=== PATIENT | male | born 1965 | race Caucasian/White ===

== ENCOUNTER → 2016-07-15 | Outpatient (CLI) | payer OTHER ==
[2016-07-15 12:18] LABS: ABSOLUTE BASOPHILS # (AUTO) 0.1 10^3/uL (0.0-0.2); ABSOLUTE EOSINOPHILS # (AUTO) 0.1 10^3/uL (0.0-0.6); ABSOLUTE LYMPHOCYTES (AUTO) 0.9 10^3/uL (0.5-4.7); ABSOLUTE MONOCYTES (AUTO) 0.8 10^3/uL (0.1-1.4); ABSOLUTE NEUT (AUTO) 6.4 10^3/uL (1.7-8.2); BASOPHILS % (AUTO) 0.7 % (0-2); EOSINOPHILS % (AUTO) 0.8 % (0-6); HEMATOCRIT 45.7 % (37.9-51.0); HEMOGLOBIN 15.6 g/dL (13.5-17.0); HGB HCT DIFFERENCE 1.1; LYMPHOCYTES % (AUTO) 10.7 % (13-45); MEAN CORPUSCULAR HEMOGLOBIN 30.8 pg (27.0-33.4); MEAN CORPUSCULAR HGB CONC 34.1 g/dL (32.0-36.0); MEAN CORPUSCULAR VOLUME 90 fl (80-97); RED BLOOD COUNT 5.06 10^6/uL (4.35-5.55); RED CELL DISTRIBUTION WIDTH 13.3 % (11.5-14.0); SEGMENTED NEUTROPHILS % (AUTO) 77.8 % (42-78); WHITE BLOOD COUNT 8.3 10^3/uL (4.0-10.5)
[2016-07-15 12:52] LABS: ALANINE AMINOTRANSFERASE 42 U/L (21-72); ALBUMIN 4.6 g/dL (3.5-5.0); ALKALINE PHOSPHATASE 51 U/L (38-126); ANION GAP 14 (5-19); ASPARTATE AMINO TRANSFERASE 35 U/L (17-59); BILIRUBIN,DIRECT 0.4 mg/dL (0.0-0.4); BILIRUBIN,TOTAL 0.7 mg/dL (0.2-1.3); BLOOD UREA NITROGEN 7 mg/dL (7-20); CALCIUM 10.2 mg/dL (8.4-10.2); CARBON DIOXIDE 27 mmol/L (22-30); CHLORIDE 102 mmol/L (98-107); CHOLESTEROL 227.75 mg/dL (0-200); CREATININE RESULT 0.79 mg/dL (0.52-1.25); Direct HDL 85 mg/dL (>40); GLUCOSE 110 mg/dL (75-110); POTASSIUM 5.3 mmol/L (3.6-5.0); SODIUM 142.6 mmol/L (137-145); TOTAL PROTEIN 7.6 g/dL (6.3-8.2); TRIGLYCERIDES 82 mg/dL (<150); URIC ACID 5.7 mg/dL (3.5-8.5)
[2016-07-15 13:03] LABS: DIRECT LDL 125 mg/dL (<100)
== END ==
LOC: CCC 12:02
DX: Z00.00 Encounter for general adult medical examination without abnormal findings (principal); I10 Essential (primary) hypertension
CPT/HCPCS: 36415; 80053; 80061; 84443; 84550; 85025

== ENCOUNTER 2016-08-25 10:21 | Emergency (ER) | payer SELFPAY ==
[2016-08-25] MEDS ORDERED: DOCUSATE SODIUM 100 MG CAPSULE BTH_EAR ONE (11:27)
[2016-08-25] MEDS ORDERED: OXYCODONE-ACETAMINOPHEN 5-325 MG TABLET PO ONE (11:30)
--- NOTE | 2016-08-25 11:31 | ER Document Report ---
ED ENT - General Mode of Arrival: Ambulatory Information source: Patient TRAVEL OUTSIDE OF THE [place] IN LAST 30 DAYS: No - HPI Patient complains to provider of: Ear problem Onset: Other - 08/23/2016 Onset/Duration: Gradual, Worse Location of pain: Ears Associated symptoms: Ear pain, Ear drainage - General Chief Complaint: Ear Pain Stated Complaint: EAR PAIN Time Seen by Provider: 08/25/16 11:16 Notes: Patient is a 51-year-old male presenting to the emergency department concerned of bilateral ear pain onset Tuesday, August 23. Patient states that he noticed the pain in right ear first, but the pain is now worse in the left ear. Patient states the pain radiates into his neck and the top of his head causing a very bad headache. Patient also states that he has noticed a discharge coming out of the left ear. Patient reports wearing earplugs for work. (RENY CHRISTENSEN) - Related Data Allergies/Adverse Reactions: No Known Allergies Allergy (Verified 08/25/16 10:25) Past Medical History - General Information source: Patient, [facility] Records - Social History Smoking Status: Current Every Day Smoker Family History: Reviewed & Not Pertinent, Other - both his mother and father had SD's in thier 40's Patient has suicidal ideation: No Patient has homicidal ideation: No - Past Medical History Cardiac Medical History: Reports: Hx Hypercholesterolemia, Hx Hypertension - Immunizations Immunizations up to date: Yes Hx Diphtheria, Pertussis, Tetanus Vaccination: Yes Review of Systems - Review of Systems Constitutional: No symptoms reported EENT: See HPI, Ear pain - Bilateral, L>R Cardiovascular: No symptoms reported Respiratory: No symptoms reported Gastrointestinal: No symptoms reported Genitourinary: No symptoms reported Male Genitourinary: No symptoms reported Musculoskeletal: No symptoms reported Skin: No symptoms reported Hematologic/Lymphatic: No symptoms reported Neurological/Psychological: No symptoms reported Physical Exam - General General appearance: Appears well, Alert - HEENT Head: Normocephalic, Atraumatic Eyes: Normal Pupils: PERRL External canal: Other - Right ear canal filled with a white wax, no drainage, unable to see tympanic membrane. Left ear canal also containing a white wax, wet gooey drainage, very tender, visible TM with no abnormalities. - Respiratory Respiratory status: No respiratory distress Chest status: Nontender - Cardiovascular Rhythm: Regular - Abdominal Inspection: Normal Tenderness: Nontender - Back Back: Normal, Nontender - Extremities General upper extremity: Normal inspection, Nontender General lower extremity: Normal inspection, Nontender - Neurological Neuro grossly intact: Yes Cognition: Normal Orientation: AAOx4 Diaz Coma Scale Eye Opening: Spontaneous Herman Coma Scale Verbal: Oriented Diaz Coma Scale Motor: Obeys Commands Diaz Coma Scale Total: 15 Speech: Normal - Psychological Associated symptoms: Normal affect, Normal mood - Skin Skin Temperature: Warm Skin Moisture: Dry Skin Color: Normal Course - Re-evaluation Re-evalutation: 08/25/16 13:59 After using Colace drops to soften earwax, for large chunks that resemble rocks came out of the right ear. The canal was widely patent, there was some erythema , and the patient reported his hearing was wonderful in that ear. The left ear had minimal results, and after multiple attempts at irrigation, reevaluation shows the appearance that the anterior and posterior canal hardin have swollen toward each other but there is still space to visualize the TM. Left external ear is also quite tender to manipulate, unlike the nontender right ear. The left ear canal had a wet discharge, the patient uses earplugs at work, this is somewhat suspicious for fungal involvement. He will be put on a steroid antibiotic drops and also use iulr-[id number]-[id number] Lotrimin AF drops in the left ear. 08/25/16 14:25 Patient's blood pressure was quite elevated, however he admits to not taking his blood pressure medication in at least 2 days. He is advised to go home and take his blood pressure medication when he gets discharged. (EDY ESPINOZA) - Vital Signs Vital signs: Temp Pulse Resp BP Pulse Ox 98.3 F 83 16 182/111 H 100 08/25/16 14:13 08/25/16 14:13 08/25/16 14:13 08/25/16 14:13 08/25/16 14:13 Discharge - Discharge Clinical Impression: Left otitis externa Qualifiers: Otitis externa type: unspecified type Chronicity: acute Qualified Code(s): H60.502 - Unspecified acute noninfective otitis externa, left ear Impacted ear wax Qualifiers: Laterality: right Qualified Code(s): H61.21 - Impacted cerumen, right ear Condition: Stable Disposition: HOME, SELF-CARE Additional Instructions: Otitis Externa: You have otitis externa -- an infection of the outer ear canal. This can be very painful. It's sometimes called "swimmer's ear," because it often occurs after prolonged water exposure. Many things, such as earwax and dirt in the ear, can contribute to it. The usual treatment is antibiotic/antiinflammatory ear drops. Occasionally , a wick will be placed in the ear to draw in the medicine. If the infection is severe, an oral antibiotic may be prescribed. Pain medication is often needed. Avoid getting water in the ear. Outer ear infections often take longer to heal than you might expect. Some tenderness and ache in the ear may persist for about two weeks. See your physician if you fail to improve as expected. Call the doctor at once if you develop fever, increasing swelling (particularly if it makes your ear "poke out"), severe headache, stiff neck, or decreased hearing. YOUR LEFT EXTERNAL EAR INFECTION IS SUSPICIOUS FOR HAVING FUNGAL INVOLVEMENT. USE THE EAR DROPS PRESCRIBED. USE LOTRIMIN AF DROPS IN THE LEFT EAR BETWEEN THE PRESCRIPTION DROP DOSING. DO NOT USE EAR PLUGS FOR A FEW DAYS. TAKE TYLENOL AND IBUPROFEN OR ALEVE FOR PAIN. FOLLOW UP WITH A LOCAL MEDICAL DOCTOR OR ENT DOCTOR IF NOT IMPROVING. RETURN TO THE EMERGENCY ROOM IF ANY NEW OR WORSENING SYMPTOMS. Prescriptions: Ciprofloxacin HCl [Cipro 500 mg Tablet] 500 mg PO BID #10 tablet Neomy Sulf/Polymyx B Sulf/Hc [Cortisporin Otic Susp] 4 drop QID #1 bottle Forms: Return to Work Scribe Attestation: 08/25/16 14:16 I personally performed the services described in the documentation, reviewed and edited the documentation which was dictated to the scribe in my presence, and it accurately records my words and actions. (EDY ESPINOZA) Scribe Documentation - Scribe Written by Christy:: Christy Clemens, 08/25/2016 1125 acting as scribe for :: Deepika
[2016-08-25] MEDS ORDERED: DOCUSATE SODIUM 100 MG CAPSULE LFT_EAR ONE (12:37)
[2016-08-25 14:17] VITALS: BP 182/111
== END 2016-08-25 14:28 | disposition home or self-care (01) ==
LOC: ER 10:21
DX: H60.502 Unspecified acute noninfective otitis externa, left ear (principal); H61.21 Impacted cerumen, right ear; H92.03 Otalgia, bilateral; M54.2 Cervicalgia; R51 Headache; F17.200 Nicotine dependence, unspecified, uncomplicated
CPT/HCPCS: 99282

== ENCOUNTER 2017-07-04 11:23 | Emergency (ER) | payer SELFPAY ==
--- NOTE | 2017-07-04 11:50 | ER Document Report ---
ED Medical Screen (RME) - General Chief Complaint: Chest Pain Stated Complaint: CHEST PAIN Time Seen by Provider: 07/04/17 11:47 Notes: Patient states that he was walking around [facility] when his heart began to beat very quickly. He states it was accompanied by intense pain. He states he still has a little bit of pain but is significantly better. He did receive aspirin and nitroglycerin in route. He does have a history of atrial fibrillation and is on Eliquis. Patient states that he drank 5 beers last night. TRAVEL OUTSIDE OF THE [place] IN LAST 30 DAYS: No - Related Data Allergies/Adverse Reactions: No Known Allergies Allergy (Verified 01/18/17 09:54) Past Medical History - Past Medical History Cardiac Medical History: Reports: Hx Hypercholesterolemia, Hx Hypertension Pulmonary Medical History: Denies: Hx Tuberculosis Renal/ Medical History: Denies: Hx Peritoneal Dialysis - Immunizations Immunizations up to date: Yes Hx Diphtheria, Pertussis, Tetanus Vaccination: Yes Physical Exam - Vital signs Vitals: Temp 97.4 F 07/04/17 11:31 Course - Vital Signs Vital signs: Temp Pulse Resp BP Pulse Ox 97.4 F 85 22 H 157/93 H 98 07/04/17 11:35 07/04/17 11:35 07/04/17 11:35 07/04/17 11:35 07/04/17 11:35
[2017-07-04 12:50] LABS: ABSOLUTE BASOPHILS # (AUTO) 0.1 10^3/uL (0.0-0.2); ABSOLUTE EOSINOPHILS # (AUTO) 0.2 10^3/uL (0.0-0.6); ABSOLUTE LYMPHOCYTES (AUTO) 1.4 10^3/uL (0.5-4.7); ABSOLUTE MONOCYTES (AUTO) 0.6 10^3/uL (0.1-1.4); ABSOLUTE NEUT (AUTO) 6.9 10^3/uL (1.7-8.2); BASOPHILS % (AUTO) 1.1 % (0-2); EOSINOPHILS % (AUTO) 1.8 % (0-6); HEMATOCRIT 45.4 % (37.9-51.0); HEMOGLOBIN 15.4 g/dL (13.5-17.0); LYMPHOCYTES % (AUTO) 15.2 % (13-45); MEAN CORPUSCULAR HEMOGLOBIN 30.5 pg (27.0-33.4); MEAN CORPUSCULAR HGB CONC 33.9 g/dL (32.0-36.0); MEAN CORPUSCULAR VOLUME 90 fl (80-97); MONOCYTES % (AUTO) 6.4 % (3-13); PLATELET COUNT 283 10^3/uL (150-450); RED BLOOD COUNT 5.05 10^6/uL (4.35-5.55); SEGMENTED NEUTROPHILS % (AUTO) 75.5 % (42-78); TOTAL CELLS COUNTED % (AUTO) 100 %; WHITE BLOOD COUNT 9.2 10^3/uL (4.0-10.5)
[2017-07-04 13:12] LABS: ALANINE AMINOTRANSFERASE 31 U/L (21-72); ALBUMIN 4.7 g/dL (3.5-5.0); ALCOHOL 136 mg/dL (NONE DETECTED); ALKALINE PHOSPHATASE 46 U/L (38-126); ANION GAP 17 (5-19); ASPARTATE AMINO TRANSFERASE 28 U/L (17-59); BILIRUBIN,DIRECT 0.3 mg/dL (0.0-0.4); BILIRUBIN,TOTAL 0.3 mg/dL (0.2-1.3); BLOOD UREA NITROGEN 6 mg/dL (7-20); CALCIUM 9.5 mg/dL (8.4-10.2); CARBON DIOXIDE 25 mmol/L (22-30); CHLORIDE 102 mmol/L (98-107); GLUCOSE 177 mg/dL (75-110); POTASSIUM 4.9 mmol/L (3.6-5.0); TOTAL PROTEIN 7.7 g/dL (6.3-8.2)
--- NOTE | 2017-07-04 13:14 | EKG REPORT ---
SEVERITY:- BORDERLINE ECG - SINUS RHYTHM BORDERLINE T ABNORMALITIES, INFERIOR LEADS : Confirmed by: Kai Carbajal MD 04-Jul-2017 13:14:14
[2017-07-04] MEDS ORDERED: ASPIRIN 325 MG TABLET PO ONE (15:54)
--- NOTE | 2017-07-04 16:00 | ER Document Report ---
ED Cardiac - General Chief Complaint: Chest Pain Stated Complaint: CHEST PAIN Time Seen by Provider: 07/04/17 11:47 Notes: The patient is a 52-year-old male, past medical history A. fib (on amiodarone and Eliquiis), presents while he was at the [employer] walking and felt his heart racing. He had some mild chest pressure that has resolved. EMS arrived and gave him aspirin and 3 nitro with complete relief of his chest pain. Patient denies shortness of breath, leg swelling, fevers, back pain, numbness, tingling , ataxia, hemoptysis or syncope. Patient says he drank a few beers last night. TRAVEL OUTSIDE OF THE [place] IN LAST 30 DAYS: No - Related Data Allergies/Adverse Reactions: No Known Allergies Allergy (Verified 01/18/17 09:54) Past Medical History - General Information source: Patient - Social History Smoking Status: Current Every Day Smoker Chew tobacco use (# tins/day): No Frequency of alcohol use: 4 last night Family History: Reviewed & Not Pertinent, Other - both his mother and father had AR's in thier 40's Patient has suicidal ideation: No Patient has homicidal ideation: No - Past Medical History Cardiac Medical History: Reports: Hx Hypercholesterolemia, Hx Hypertension Pulmonary Medical History: Denies: Hx Tuberculosis Renal/ Medical History: Denies: Hx Peritoneal Dialysis - Immunizations Immunizations up to date: Yes Hx Diphtheria, Pertussis, Tetanus Vaccination: Yes Review of Systems - Review of Systems Notes: REVIEW OF SYSTEMS: CONSTITUTIONAL: -fevers, -chills EENT: -eye pain, -difficulty swallowing, -nasal congestion CARDIOVASCULAR: +chest pain, +palpitations, -syncope. RESPIRATORY: -cough, -SOB GASTROINTESTINAL: -abdominal pain, -nausea, -vomiting, -diarrhea GENITOURINARY: -dysuria, -hematuria MUSCULOSKELETAL: -back pain, -neck pain SKIN: -rash or skin lesions. HEMATOLOGIC: -easy bruising or bleeding. LYMPHATIC: -swollen, enlarged glands. NEUROLOGICAL: -altered mental status or loss of consciousness, -headache, - neurologic symptoms PSYCHIATRIC: -anxiety, -depression. ALL OTHER SYSTEMS REVIEWED AND NEGATIVE. Physical Exam - Vital signs Vitals: Temp 97.4 F 07/04/17 11:31 - Notes Notes: PHYSICAL EXAMINATION: GENERAL: Well-appearing, well-nourished and in no acute distress. HEAD: Atraumatic, normocephalic. EYES: Pupils equal round and reactive to light, extraocular movements intact, sclera anicteric, conjunctiva are normal. ENT: nares patent, oropharynx clear without exudates. Moist mucous membranes. NECK: Normal range of motion, supple without lymphadenopathy LUNGS: Breath sounds clear to auscultation bilaterally and equal. No wheezes rales or rhonchi. HEART: Regular rate and rhythm without murmurs ABDOMEN: Soft, nontender, normoactive bowel sounds. No guarding, no rebound. No masses appreciated. EXTREMITIES: Normal range of motion, no pitting or edema. No cyanosis. NEUROLOGICAL: Cranial nerves grossly intact. Normal speech, normal gait. Normal sensory and motor exams. PSYCH: Normal mood, normal affect. SKIN: Warm, Dry, normal turgor, no rashes or lesions noted. Course - Re-evaluation Re-evalutation: Patient with a history of A. fib presents with feeling like his heart is racing and mild chest pain during that time. He still feels his heart racing, the patient is found to be in sinus rhythm with heart rate in the 80s. He is already on amiodarone and Eliquis. 2 sets of troponins are negative and his HEART score is 2. 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 Given very strict return precautions and he understands. - Vital Signs Vital signs: Temp Pulse Resp BP Pulse Ox 97.4 F 85 22 H 157/93 H 99 07/04/17 11:35 07/04/17 11:35 07/04/17 11:35 07/04/17 11:35 07/04/17 14:18 - Laboratory Result Diagrams: 07/04/17 12:35 07/04/17 12:35 Laboratory results interpreted by me: 07/04/17 12:35 BUN 6 L Glucose 177 H - Diagnostic Test Radiology reviewed: Image reviewed, Reports reviewed - EKG Interpretation by Mi EKG shows normal: Sinus rhythm, [place], Intervals, QRS Complexes, ST-T Waves Rate: Normal Discharge - Discharge Clinical Impression: Palpitations Chest pain Qualifiers: Chest pain type: unspecified Qualified Code(s): R07.9 - Chest pain, unspecified Condition: Stable Disposition: HOME, SELF-CARE Additional Instructions: CHEST PAIN OF UNCLEAR CAUSE: The exact cause of your chest pain isn't clear. Fortunately, there is no evidence of a dangerous medical condition. Further testing may be required to find the source of the pain. Most often, we find that this pain is coming from the chest wall -- the muscles or rib joints in the chest. But chest pain can come from the lung and lung lining, the esophagus, the heart valves or heart lining, and even the stomach or gallbladder. Rest. Eat lightly until the pain is gone. We may prescribe medicine for pain and inflammation. You should call the physician immediately if the pain radiates to the shoulder, jaw or arms; if you start to run a fever or develop a cough; or if you develop shortness of breath, or other new or alarming symptoms. NORMAL EXAM AND WORKUP: At this time, your examination and workup show no significant abnormality. No significant abnormal physical findings were noted. All laboratory, EKG, and imaging (x-ray, CT scans, ultrasound) studies that were ordered show no significant abnormality. Although your examination and all studies that were ordered showed no significant abnormal finding, there are no examinations and no studies that are 100% accurate. There is always the possibility that some abnormality could exist and not be detected with physical examination or within the limits and capabilities of laboratory and other studies. You should return or follow up as you were instructed on your visit today for further evaluation if your symptoms do not resolve. CHEST WALL PAIN: Your chest pain may be coming from the chest wall. This is often caused by straining the muscles or joints in the chest during physical activity, direct trauma, coughing, or vigorous vomiting. Persons with arthritis are especially prone to this type of pain, due to inflammation of the cartilage joints near the breast bone. Occasionally, no cause can be found. Rest from strenuous physical activity. This kind of chest pain is usually made worse by movement of the chest. Depending on the symptoms, we may prescribe medicine for pain, muscle relaxation, and antiinflammatory effects. If the pain is new, and seems to be due to muscle strain, cold packs can help. Otherwise, apply gentle warmth to the painful area for 15 minutes every hour or two. You should call contact the doctor immediately if things change. Further evaluation is needed if you develop a fever or cough, if the nature of the pain changes, or if you become short of breath. ANGINA EPISODE: Your physician has diagnosed the pain you experienced as an episode of angina. Angina occurs when a portion of the heart muscle temporarily lacks oxygen. It does not cause any permanent heart damage, but serves as a warning. Hospitalization is not necessary now. Evaluation of your cardiac condition , and medical therapy for angina will be necessary. It's important you be sure to keep all appointments and take medication exactly as prescribed. Angina is usually treated with a type of "nitrate" medication. This is available as ointment, pills, or sublingual (under the tongue) tablets. Depending on your clinical situation, other medications may be added to help control angina. These may include beta blockers or calcium blockers. If episodes of angina are occurring with increased frequency, or if chest pain lasts longer than 15 minutes or does not respond to nitroglycerin, you must seek emergency medical care immediately. ASPIRIN: Aspirin has been shown to have a beneficial effect on blood circulation by reducing the clotting effect of platelets in the blood. These beneficial effects can be achieved by taking just a single baby (81 mg) aspirin a day. It is recommended that any person over the age of forty take a single baby aspirin every day for heart and brain circulation, unless you are allergic to aspirin or have some significant bleeding disorder. It is strongly recommended that people who have proven cardiac or blood circulation disturbances should take a baby aspirin every day. NITRATES: Nitroglycerin and related longer-acting nitrate medications are used to prevent or treat attacks of angina. These medicines dilate blood vessels, decreasing the work of the heart, and improving its supply of oxygen. Many different forms are available, including sublingual tablets (used under the tongue), sprays, skin patches, and long-acting pills. If the particular form of medication you have been given is not working well for you, contact your doctor. Long-acting forms: Take exactly as prescribed. Sudden stopping of medication can provoke increased attacks. Sublingual tabs or spray: A headache will usually occur with use. Sit or lie while waiting for the pain to go away. If angina doesn't respond to three doses (five minutes apart), call for emergency assistance. FOLLOW-UP CARE: If you have been referred to a physician for follow-up care, call the physician s office for an appointment as you were instructed or within the next two days. If you experience worsening or a significant change in your symptoms, notify the physician immediately or return to the Emergency Department at any time for re-evaluation. Palpitations (Irregular/Rapid Heartrate) Irregular or rapid heartbeat is called "palpitation." To diagnose the cause of palpitation, we have to "catch it in the act" with an EKG. Sinus Tachycardia: This is a rapid (but NORMAL) rhythm that can be due to fever, pain, anxiety, lack of sleep, over-exertion, or drugs. Cold medications, caffeine, and diet pills are particularly likely to cause tachycardia. Usually , all that's required is rest, reassurance, and avoiding caffeine, alcohol, nicotine, and unnecessary medicines. Paroxysmal Atrial Tachycardia (PAT): This abnormally rapid heartbeat is caused by a "short circuit" in the electrical system of the heart. It is not dangerous, unless other heart disease is present. These attacks of PAT may occur occasionally for years. Medication is available for treatment. Paroxysmal Atrial Fibrillation or Atrial Flutter: This is irregular electrical activity in the upper heart chamber. These abnormal rhythms often occur with valve disease or in hearts damaged by hardening of the arteries. These rhythms usually require further testing, for example a cardiac echo. Premature Beats: Extra beats occur more commonly after caffeine, nicotine , alcohol, cold pills, diet pills. Emotional stress or fatigue also provoke them. Extra beats are only dangerous when heart disease is present. They usually need no treatment. If they're frequent, or if evidence of heart disease develops, medication can be given to suppress them. If we were unable to "catch" the palpitations on EKG, you should try to get an EKG immediately if the symptoms begin again. Contact the physician at once if you develop persistent lightheadedness, shortness of breath, chest pain , or swelling of the ankles. Forms: Elevated Blood Pressure Referrals: JAIMIE JARVIS MD [BRANDY HENDRICKS] - Follow up as needed
--- NOTE | 2017-07-04 16:03 | RADIOLOGY REPORT (SQ) ---
EXAM DESCRIPTION: CHEST SINGLE VIEW COMPLETED DATE/TIME: 07/04/2017 3:53 pm REASON FOR STUDY: chest pain COMPARISON: 03/01/2016. EXAM PARAMETERS: NUMBER OF VIEWS: One view. TECHNIQUE: Single frontal radiographic view of the chest acquired. RADIATION DOSE: NA LIMITATIONS: None. FINDINGS: LUNGS AND PLEURA: No opacities, masses or pneumothorax. No pleural effusion. MEDIASTINUM AND HILAR STRUCTURES: No masses. Contour normal. HEART AND VASCULAR STRUCTURES: Heart normal in size. Normal vasculature. BONES: No acute findings. HARDWARE: None in the chest. OTHER: No other significant finding. IMPRESSION: NO ACUTE RADIOGRAPHIC FINDING IN THE CHEST. TECHNICAL DOCUMENTATION: JOB ID: [id number] [employer]- All Rights Reserved Reading location - IP/workstation name: [email or web address]
[2017-07-04 17:22] VITALS: BP 165/92
== END 2017-07-04 17:30 | disposition home or self-care (01) ==
LOC: ER 11:23
DX: R00.2 Palpitations (principal); R07.89 Other chest pain; F17.200 Nicotine dependence, unspecified, uncomplicated; I10 Essential (primary) hypertension; I48.91 Unspecified atrial fibrillation; Z79.01 Long term (current) use of anticoagulants; Z79.899 Other long term (current) drug therapy; Z82.49 Family history of ischemic heart disease and other diseases of the circulatory system
CPT/HCPCS: 36415; 71045; 80053; 80307; 83735; 84484; 85025; 93005; 93010; 99285

== ENCOUNTER 2017-07-31 17:37 | Emergency (ER) | payer SELFPAY ==
[2017-07-31] MEDS ORDERED: NICOTINE 21 MG/24 HR PATCH.TD24 TD ONE (17:58)
[2017-07-31] MEDS ORDERED: LORAZEPAM 1 MG TABLET PO ONE (18:10)
[2017-07-31] MEDS ORDERED: DIPHENHYDRAMINE HCL 50 MG CAPSULE PO ONE (18:10)
[2017-07-31] MEDS ORDERED: HALOPERIDOL 5 MG TABLET PO ONE (18:10)
--- NOTE | 2017-07-31 18:11 | ER Document Report ---
ED General - General Chief Complaint: Suicidal Ideation Stated Complaint: SUICIDAL IDEATIONS Time Seen by Provider: 07/31/17 17:48 Mode of Arrival: Medic Information source: Patient, Emergency Med Personnel Cannot obtain history due to: Intoxicated Notes: 52-year-old male who has become homeless over the past couple weeks has not been on his medications presents with complaints of alcohol intoxication wanted to harm himself. Patient notes he is feeling extremely depressed states he has not eaten for a few days, patient denies any actual attempt to harm himself TRAVEL OUTSIDE OF THE U.S. IN LAST 30 DAYS: No - HPI Onset: Other Onset/Duration: Persistent Quality of pain: No pain Severity: Moderate Pain Level: Denies Associated symptoms: Other Exacerbated by: Denies Relieved by: Denies Similar symptoms previously: No Recently seen / treated by doctor: No - Related Data Allergies/Adverse Reactions: No Known Allergies Allergy (Verified 01/18/17 09:54) Past Medical History - Social History Smoking Status: Current Every Day Smoker Cigarette use (# per day): Yes Chew tobacco use (# tins/day): No Smoking Education Provided: No Frequency of alcohol use: Heavy Family History: Reviewed & Not Pertinent, Other - both his mother and father had AR's in thier 40's - Past Medical History Cardiac Medical History: Reports: Hx Hypercholesterolemia, Hx Hypertension Pulmonary Medical History: Denies: Hx Tuberculosis Renal/ Medical History: Denies: Hx Peritoneal Dialysis - Immunizations Immunizations up to date: Yes Hx Diphtheria, Pertussis, Tetanus Vaccination: Yes Review of Systems - Review of Systems Notes: REVIEW OF SYSTEMS: CONSTITUTIONAL : Denies fever, chills, or sweats. Denies recent illness. EENT: Denies eye, ear, throat, or mouth pain or symptoms. Denies nasal or sinus congestion or discharge. Denies throat, tongue, or mouth swelling or difficulty swallowing. CARDIOVASCULAR: Denies chest pain. Denies palpitations or racing or irregular heart beat. Denies ankle edema. RESPIRATORY: Denies cough, cold, or chest congestion. Denies shortness of breath, difficulty breathing, or wheezing. GASTROINTESTINAL: Denies abdominal pain or distention. Denies nausea, vomiting , or diarrhea. Denies blood in vomitus, stools, or per rectum. Denies black, tarry stools. Denies constipation. GENITOURINARY: Denies difficulty urinating, painful urination, burning, frequency, blood in urine, or discharge. MUSCULOSKELETAL: Denies back or neck pain or stiffness. Denies joint pain or swelling. SKIN: Denies rash, lesions or sores. HEMATOLOGIC : Denies easy bruising or bleeding. LYMPHATIC: Denies swollen, enlarged glands. NEUROLOGICAL: Denies confusion or altered mental status. Denies passing out or loss of consciousness. Denies dizziness or lightheadedness. Denies headache. Denies weakness or paralysis or loss of use of either side. Denies problems with gait or speech. Denies sensory loss, numbness, or tingling. Denies seizures. PSYCHIATRIC: Admits to depression suicidal ideations. ALL OTHER SYSTEMS REVIEWED AND NEGATIVE. Dictation was performed using [employer] voice recognition software PHYSICAL EXAMINATION: GENERAL: Well-appearing, well-nourished and in no acute distress. Intoxicated HEAD: Atraumatic, normocephalic. EYES: Pupils equal round and reactive to light, extraocular movements intact, sclera anicteric, conjunctiva are normal. ENT: Nares patent, oropharynx clear without exudates. Moist mucous membranes. NECK: Normal range of motion, supple without lymphadenopathy LUNGS: Breath sounds clear to auscultation bilaterally and equal. No wheezes rales or rhonchi. HEART: Regular rate and rhythm without murmurs ABDOMEN: Soft, nontender, nondistended abdomen. No guarding, no rebound. No masses appreciated. Musculoskeletal: Normal range of motion, no pitting or edema. No cyanosis. NEUROLOGICAL: Cranial nerves grossly intact. Normal speech, normal gait. Normal sensory, motor exams PSYCH: Agitated t. SKIN: Warm, Dry, normal turgor, no rashes or lesions noted. Course - Re-evaluation Re-evalutation: 07/31/17 18:11 Patient appears quite agitated he is not toxic, will be given medication to help calm down. Otherwise he looks well is in no distress at this time denies any actual attempt to harm himself. Patient will therefore be evaluated by mental health Discharge - Discharge Clinical Impression: Suicidal ideation, Intoxication, Homeless Condition: Stable Disposition: PSYCH HOSP/UNIT
[2017-07-31 18:34] LABS: APPEARANCE,URINE CLEAR; BILIRUBIN,URINE NEGATIVE (NEGATIVE); COLOR,URINE STRAW; GLUCOSE, URINE NEGATIVE (NEGATIVE); KETONES,URINE NEGATIVE (NEGATIVE); LEUKOCYTE ESTERASE,URINE NEGATIVE (NEGATIVE); NITRITE,URINE NEGATIVE (NEGATIVE); PROTEIN,URINE NEGATIVE (NEGATIVE); URINE SPECIFIC GRAVITY 1.002; UROBILINOGEN,URINE NEGATIVE mg/dL (<2.0)
[2017-07-31 18:58] LABS: URINE AMPHETAMINES SCREEN NEGATIVE; URINE BARBITURATES SCREEN NEGATIVE; URINE BENZODIAZEPINES SCREEN NEGATIVE; URINE COCAINE SCREEN NEGATIVE; URINE MARIJUANA (THC) SCREEN NEGATIVE; URINE METHADONE SCREEN NEGATIVE; URINE PHENCYCLIDINE SCREEN NEGATIVE
[2017-07-31] MEDS ORDERED: LORAZEPAM 1 MG TABLET PO SCH (19:00)
[2017-07-31 20:15] LABS: ABSOLUTE BASOPHILS # (AUTO) 0.1 10^3/uL (0.0-0.2); ABSOLUTE EOSINOPHILS # (AUTO) 0.2 10^3/uL (0.0-0.6); ABSOLUTE LYMPHOCYTES (AUTO) 1.6 10^3/uL (0.5-4.7); ABSOLUTE MONOCYTES (AUTO) 0.6 10^3/uL (0.1-1.4); ABSOLUTE NEUT (AUTO) 6.4 10^3/uL (1.7-8.2); BASOPHILS % (AUTO) 0.9 % (0-2); EOSINOPHILS % (AUTO) 2.6 % (0-6); HEMATOCRIT 45.3 % (37.9-51.0); HEMOGLOBIN 15.6 g/dL (13.5-17.0); MEAN CORPUSCULAR HEMOGLOBIN 31.3 pg (27.0-33.4); MEAN CORPUSCULAR HGB CONC 34.3 g/dL (32.0-36.0); MEAN CORPUSCULAR VOLUME 91 fl (80-97); MONOCYTES % (AUTO) 6.2 % (3-13); PLATELET COUNT 250 10^3/uL (150-450); RED BLOOD COUNT 4.97 10^6/uL (4.35-5.55); RED CELL DISTRIBUTION WIDTH 14.2 % (11.5-14.0); SEGMENTED NEUTROPHILS % (AUTO) 72.3 % (42-78); TOTAL CELLS COUNTED % (AUTO) 100 %; WHITE BLOOD COUNT 8.9 10^3/uL (4.0-10.5)
[2017-07-31 20:29] LABS: ALANINE AMINOTRANSFERASE 32 U/L (21-72); ALBUMIN 4.3 g/dL (3.5-5.0); ALCOHOL 184 mg/dL (NONE DETECTED); ALKALINE PHOSPHATASE 33 U/L (38-126); ANION GAP 16 (5-19); ASPARTATE AMINO TRANSFERASE 26 U/L (17-59); BLOOD UREA NITROGEN 6 mg/dL (7-20); CALCIUM 9.9 mg/dL (8.4-10.2); CARBON DIOXIDE 22 mmol/L (22-30); CHLORIDE 110 mmol/L (98-107); GLUCOSE 96 mg/dL (75-110); POTASSIUM 4.1 mmol/L (3.6-5.0); TOTAL PROTEIN 7.1 g/dL (6.3-8.2)
[2017-07-31 20:36] LABS: ACETAMINOPHEN < 10 ug/mL (10-30); BILIRUBIN,TOTAL < 0.1 mg/dL (0.2-1.3); SALICYLATE < 1.0 mg/dL (2.0-20.0)
--- NOTE | 2017-08-01 00:42 | EKG REPORT ---
SEVERITY:- NORMAL ECG - SINUS RHYTHM : Confirmed by: Elvira Casey 01-Aug-2017 00:41:16
[2017-08-01 10:04] VITALS: BP 173/103
--- NOTE | 2017-08-01 10:11 | PSYCHOLOGICAL NOTE ---
Psych Note - Psych Note Psych Note: Reason for evaluation: Suicidal ideation Contact permissions: None Eval:[id number] Final Disposition: 09 Patient is a 52-year-old male. Patient reports that he is feeling depressed and so he drinks when he is depressed. Patient reports that he went to the homeless prison and it was full just before 6 PM so he had nowhere to sleep. Patient reports that he is currently homeless because his parents are "too old to be dealing with it". Patient reports that he has been depressed for the last 4 years because his daughter changed her phone number and does not want anything to do with him. Patient reports that he does not plan on stopping drinking as it helps him feel better. Patient reports he would like the hospital to give him a ride to a different prison and then be able to give in her right back once he slept there because he does not know anyone there as he knows everyone here in [place]. Patient reports that he has never been to an inpatient psychiatric hospital. Patient reports he quit his job. Patient reports he has never had therapy. Patient stated "I need some kind of help I just need to find a way to end it so it will not her anymore" (when clinician asked to clarify he is referencing his living situation). Patient reports that he does not see how he can do therapy because he does not have a ride. Patient reports that he also does not know where he could sleep [place]. Patient reports that anywhere else is "too far to walk". Patient reports that he has been drinking since he was 20 years old. Patient reports that he drinks on average a 12 pack of beer per day. Patient reports that he is not interested in getting detox help for drinking. Patient reports at this time he does not feel suicidal, has no intent or plan to commit suicide. Patient reports he is concerned with his living situation, and "trying to figure it out". Patient reports if the prison is full , he doesn't know where to go. Medication recommendations made by contracted [facility] provider Dr. Jessica MD includes: None Diagnosis: V 60.0 (Z 59.0) homelessness 311 (F32.9) unspecified depressive disorder ( per patient report) 303.90 (F 10.20) alcohol use disorder; severe Impression/Plan: Recommendation to rescind involuntary commitment due to patient not meeting criteria [place] GS 122C. Patient is psychiatrically cleared for discharge. Recommendation to go to [facility] as a walk in today 2017. Clinician provided education regarding alcohol use disorder, and its correlation to depressive symptoms. A packet regarding homelessness resources were provided to patient, along with detox facility list. Attending physician in agreement with plan and disposition. Consulted with Dr. Judge regarding the management and care of patient.
[2017-08-01] MEDS ORDERED: AMLODIPINE BESYLATE 10 MG TABLET PO ONE (10:15)
[2017-08-03] MEDS ORDERED: AMLODIPINE BESYLATE 5 MG TABLET PO SCH (10:00)
== END 2017-08-01 10:41 | disposition home or self-care (01) ==
LOC: ER 17:37
DX: R45.851 Suicidal ideations (principal); F10.120 Alcohol abuse with intoxication, uncomplicated; Z59.0 Homelessness
CPT/HCPCS: 36415; 80053; 80307; 81001; 85025; 93005; 93010; 99285

== ENCOUNTER 2017-08-01 15:59 | Emergency (ER) | payer SELFPAY ==
--- NOTE | 2017-08-01 16:25 | ER Document Report ---
ED Medical Screen (RME) - General Chief Complaint: Psych Problem Stated Complaint: SUICIDAL Time Seen by Provider: 08/01/17 16:20 Notes: RAPID MEDICAL EVALUATION DISCLOSURE I have seen this patient as part of a Rapid Medical Evaluation and, if applicable, placed any initially appropriate orders. The patient will be seen and fully evaluated, including a full history and physical exam, by a provider ( in Main ED or Fast Track) when a room becomes available. 52-year-old male here with complaints of suicidal ideations ongoing for 2 weeks now. He has lost his house and his significant other and has a plan to jump in front of the largest tractor-trailer he can find. He denies homicidal ideations. He is having some "weird thoughts" where he talks to himself. He denies being diagnosed with any psychiatric illness. He does drink 12 beers daily and his last drink was 2 hours ago. TRAVEL OUTSIDE OF THE U.S. IN LAST 30 DAYS: No - Related Data Allergies/Adverse Reactions: No Known Allergies Allergy (Verified 01/18/17 09:54) Past Medical History - Social History Chew tobacco use (# tins/day): No Frequency of alcohol use: Heavy Drug Abuse: None - Past Medical History Cardiac Medical History: Reports: Hx Atrial Fibrillation, Hx Hypercholesterolemia, Hx Hypertension Pulmonary Medical History: Denies: Hx Tuberculosis Renal/ Medical History: Denies: Hx Peritoneal Dialysis - Immunizations Immunizations up to date: Yes Hx Diphtheria, Pertussis, Tetanus Vaccination: Yes Physical Exam - Vital signs Vitals: Temp Pulse Resp BP Pulse Ox 98.0 F 113 H 17 130/91 H 100 08/01/17 16:05 08/01/17 16:05 08/01/17 16:05 08/01/17 16:05 08/01/17 16:05 Course - Vital Signs Vital signs: Temp Pulse Resp BP Pulse Ox 98.0 F 113 H 17 130/91 H 100 08/01/17 16:05 08/01/17 16:05 08/01/17 16:05 08/01/17 16:05 08/01/17 16:05
[2017-08-01 17:23] LABS: ABSOLUTE BASOPHILS # (AUTO) 0.1 10^3/uL (0.0-0.2); ABSOLUTE EOSINOPHILS # (AUTO) 0.3 10^3/uL (0.0-0.6); ABSOLUTE LYMPHOCYTES (AUTO) 1.3 10^3/uL (0.5-4.7); ABSOLUTE MONOCYTES (AUTO) 0.7 10^3/uL (0.1-1.4); ABSOLUTE NEUT (AUTO) 8.2 10^3/uL (1.7-8.2); BASOPHILS % (AUTO) 1.2 % (0-2); EOSINOPHILS % (AUTO) 2.4 % (0-6); HEMATOCRIT 48.2 % (37.9-51.0); HEMOGLOBIN 16.3 g/dL (13.5-17.0); LYMPHOCYTES % (AUTO) 12.1 % (13-45); MEAN CORPUSCULAR HEMOGLOBIN 31.2 pg (27.0-33.4); MEAN CORPUSCULAR HGB CONC 33.7 g/dL (32.0-36.0); MEAN CORPUSCULAR VOLUME 93 fl (80-97); MONOCYTES % (AUTO) 6.8 % (3-13); PLATELET COUNT 290 10^3/uL (150-450); RED BLOOD COUNT 5.21 10^6/uL (4.35-5.55); RED CELL DISTRIBUTION WIDTH 14.3 % (11.5-14.0); SEGMENTED NEUTROPHILS % (AUTO) 77.5 % (42-78); TOTAL CELLS COUNTED % (AUTO) 100 %; WHITE BLOOD COUNT 10.6 10^3/uL (4.0-10.5)
[2017-08-01 17:30] LABS: APPEARANCE,URINE CLEAR; BILIRUBIN,URINE NEGATIVE (NEGATIVE); COLOR,URINE STRAW; GLUCOSE, URINE NEGATIVE (NEGATIVE); KETONES,URINE NEGATIVE (NEGATIVE); LEUKOCYTE ESTERASE,URINE NEGATIVE (NEGATIVE); NITRITE,URINE NEGATIVE (NEGATIVE); PROTEIN,URINE NEGATIVE (NEGATIVE); URINE SPECIFIC GRAVITY 1.003; UROBILINOGEN,URINE NEGATIVE mg/dL (<2.0)
[2017-08-01 17:37] LABS: ALANINE AMINOTRANSFERASE 32 U/L (21-72); ALBUMIN 4.7 g/dL (3.5-5.0); ALCOHOL 86 mg/dL (NONE DETECTED); ALKALINE PHOSPHATASE 40 U/L (38-126); ANION GAP 18 (5-19); ASPARTATE AMINO TRANSFERASE 32 U/L (17-59); BILIRUBIN,DIRECT 0.2 mg/dL (0.0-0.4); BILIRUBIN,TOTAL 0.2 mg/dL (0.2-1.3); BLOOD UREA NITROGEN 8 mg/dL (7-20); CALCIUM 9.6 mg/dL (8.4-10.2); CARBON DIOXIDE 23 mmol/L (22-30); CHLORIDE 105 mmol/L (98-107); GLUCOSE 126 mg/dL (75-110); POTASSIUM 4.7 mmol/L (3.6-5.0); SODIUM 145.5 mmol/L (137-145); TOTAL PROTEIN 7.5 g/dL (6.3-8.2)
[2017-08-01 17:38] LABS: ACETAMINOPHEN < 10 ug/mL (10-30); SALICYLATE < 1.0 mg/dL (2.0-20.0)
[2017-08-01 17:46] LABS: URINE AMPHETAMINES SCREEN NEGATIVE; URINE BARBITURATES SCREEN NEGATIVE; URINE BENZODIAZEPINES SCREEN NEGATIVE; URINE COCAINE SCREEN NEGATIVE; URINE MARIJUANA (THC) SCREEN NEGATIVE; URINE METHADONE SCREEN NEGATIVE; URINE PHENCYCLIDINE SCREEN NEGATIVE
--- NOTE | 2017-08-01 18:03 | EKG REPORT ---
SEVERITY:- BORDERLINE ECG - SINUS RHYTHM BORDERLINE T ABNORMALITIES, INFERIOR LEADS : Confirmed by: Kai Carbajal MD 01-Aug-2017 18:02:41
[2017-08-01] MEDS ORDERED: LORAZEPAM 1 MG TABLET PO ONE (21:46)
[2017-08-01] MEDS ORDERED: NICOTINE 21 MG/24 HR PATCH.TD24 TD ONE (21:48)
--- NOTE | 2017-08-01 23:38 | ER Document Report ---
ED Psych Disorder / Suicide - General Mode of Arrival: Ambulatory Information source: Patient TRAVEL OUTSIDE OF THE U.S. IN LAST 30 DAYS: No <ALVARO GLORIA - Last Filed: 08/01/17 23:54> <FRANCK TREVIÑO - Last Filed: 08/02/17 01:14> - General Chief Complaint: Psych Problem Stated Complaint: SUICIDAL Time Seen by Provider: 08/01/17 16:20 Notes: Patient is a 52-year-old male who presents to the emergency department today with complaints of suicidal ideation and possible alcohol withdrawal. Patient states that he drinks at least a 12 pack a day. Patient states today is the longest he has gone without drinking which has been approximately 12 hours. Patient states earlier today he had suicidal ideation, stating he was going to "jump out in front of the biggest semi he could find on [address] Patient states he has been in alcohol withdrawal in the past but has never had any seizures from withdrawal. (ALVARO GLORIA) - Related Data Allergies/Adverse Reactions: No Known Allergies Allergy (Verified 01/18/17 09:54) Past Medical History - General Information source: Patient - Social History Smoking Status: Current Every Day Smoker Cigarette use (# per day): Yes Chew tobacco use (# tins/day): No Frequency of alcohol use: Heavy Drug Abuse: None Lives with: Family Family History: Reviewed & Not Pertinent, Other - both his mother and father had OK's in thier 40's Patient has suicidal ideation: Yes Patient has homicidal ideation: No - Past Medical History Cardiac Medical History: Reports: Hx Atrial Fibrillation, Hx Hypercholesterolemia, Hx Hypertension Renal/ Medical History: Denies: Hx Peritoneal Dialysis Surgical Hx: Negative - Immunizations Immunizations up to date: Yes Hx Diphtheria, Pertussis, Tetanus Vaccination: Yes <ALVARO GLORIA - Last Filed: 08/01/17 23:54> Review of Systems - Review of Systems Constitutional: See HPI, Other - possible alcohol withdrawal EENT: No symptoms reported Cardiovascular: No symptoms reported Respiratory: No symptoms reported Gastrointestinal: No symptoms reported Genitourinary: No symptoms reported Male Genitourinary: No symptoms reported Musculoskeletal: No symptoms reported Skin: No symptoms reported Hematologic/Lymphatic: No symptoms reported Neurological/Psychological: See HPI, Suicidal ideation -: Yes All other systems reviewed and negative <ALVARO GLORIA - Last Filed: 08/01/17 23:54> Physical Exam - Vital signs Interpretation: Normal - General General appearance: Appears well, Alert - HEENT Head: Normocephalic, Atraumatic Eyes: Normal Pupils: PERRL - Respiratory Respiratory status: No respiratory distress Chest status: Nontender Breath sounds: Normal Chest palpation: Normal - Cardiovascular Rhythm: Regular Heart sounds: Normal auscultation Murmur: No - Abdominal Inspection: Normal Distension: No distension Bowel sounds: Normal Tenderness: Nontender Organomegaly: No organomegaly - Back Back: Normal, Nontender - Extremities General upper extremity: Normal inspection, Nontender, Normal color, Normal ROM , Normal temperature General lower extremity: Normal inspection, Nontender, Normal color, Normal ROM , Normal temperature, Normal weight bearing. No: Parish's sign - Neurological Neuro grossly intact: Yes Cognition: Normal Orientation: AAOx4 Diaz Coma Scale Eye Opening: Spontaneous [place] Coma Scale Verbal: Oriented [place] Coma Scale Motor: Obeys Commands Diaz Coma Scale Total: 15 Speech: Normal Motor strength normal: LUE, RUE, LLE, RLE Sensory: Normal - Psychological Associated symptoms: Agitated, Tearful - Skin Skin Temperature: Warm Skin Moisture: Dry Skin Color: Normal <FRANCK TREVIÑO - Last Filed: 08/02/17 01:14> - Vital signs Vitals: Temp Pulse Resp BP Pulse Ox 98.0 F 113 H 17 130/91 H 100 08/01/17 16:05 08/01/17 16:05 08/01/17 16:05 08/01/17 16:05 08/01/17 16:05 Course - Laboratory Result Diagrams: 08/01/17 16:55 08/01/17 16:55 <ALVARO GLORIA - Last Filed: 08/01/17 23:54> - Laboratory Result Diagrams: 08/01/17 16:55 08/01/17 16:55 <FRANCK TREVIÑO - Last Filed: 08/02/17 01:14> - Re-evaluation Re-evalutation: 08/01/17 21:15 Patient is a 52-year-old male who comes in with a history of depression and suicidal ideation stating that he is going to walk in front of a tractor trailer. Patient drinks daily and states that this is the longest is gone without a drink which was 6 this morning. Usually drinks a 12 pack a day. Patient is slightly tremulous. Denies any history of seizures. Vitals are stable at this time. Regardless, due to risk for alcohol withdrawal, patient will be given a dose of Ativan.He will be evaluated by mental health in the morning. 08/02/17 01:12 Resting comfortably. Stable vitals. No tremulousness. Medically stable at this time. (FRANCK TREVIÑO) - Vital Signs Vital signs: Temp Pulse Resp BP Pulse Ox 98.2 F 86 15 147/92 H 97 08/01/17 21:05 08/01/17 21:05 08/01/17 21:05 08/01/17 21:05 08/01/17 21:05 - Laboratory Laboratory results interpreted by me: 08/01/17 08/01/17 16:55 16:55 WBC 10.6 H RDW 14.3 H Lymphocytes % 12.1 L Sodium 145.5 H Glucose 126 H Salicylates < 1.0 L Acetaminophen < 10 L Discharge <ALVARO GLORIA - Last Filed: 08/01/17 23:54> <FRANCK TREVIÑO - Last Filed: 08/02/17 01:14> - Discharge Clinical Impression: Suicidal ideation, Alcohol use disorder Condition: Stable Disposition: OTHER Instructions: Acute Alcohol Intoxication ([facility]), Chronic Alcoholism ([facility]), Suicidal Ideation ([facility]) Scribe Attestation: 08/02/17 01:13 I personally performed the services described in the documentation, reviewed and edited the documentation which was dictated to the scribe in my presence, and it accurately records my words and actions. (FRANCK TREVIÑO) Scribe Documentation - Scribe Written by Christy:: Christy Suazo, 08/01/2017 [id number] acting as scribe for :: Magda <ALVARO GLORIA - Last Filed: 08/01/17 23:54>
--- NOTE | 2017-08-02 08:52 | PSYCHOLOGICAL NOTE ---
Psych Note - Psych Note Psych Note: Reason for evaluation: Suicidal ideation Contact permissions: None Patient is a 52-year-old male. Patient reports that throughout the night he was having shakes and feeling "twitchy". Patient reports that he was given a nicotine patch to help with his cravings for cigarette but the alcohol is now wearing off and he wants something for that. Patient reports that he is also concerned about his blood pressure because his heart is racing and he takes blood pressure medications for that. Patient reports that when he was discharged yesterday he left and drank 12- 40 ounces of icehouse beer. Patient reports "right now I am feeling good". Patient reports that he denies suicidal thoughts and feelings at this time but states that when he drinks he becomes depressed and will start talking about suicide. Patient stated "alcohol is a trigger for me it puts me in a depression". Patient reports that before he drank when he left the hospital he went to [facility] as a walk-in and a woman helped him fill out information to include helping him with getting housing assistance. Patient reports that he then walked [facility] the pen[facility]iary and got there before 6 PM he was told it was full and he was not allowed to sleep there. Patient reports he was upset because the last bed was given to someone who [facility]. Patient reports he then walked all the way here to the hospital. Patient reports that he would not want to go to a detox facility for alcohol use because when he discharged he would not know anyone. Patient reports that he has friends here in the area and knows where to hide from the police so that he is not harassed. Patient reports that he has seen police officers harassing the homeless just for being homeless so he would want to stay in [place]. Patient reports the only type of help he wants is local. Patient reports he is afraid that when he gets discharged from a detox facility if it is not local he would not know where the local penitentiary is or the food pantry and is scared of change. Patient reports he is lived in [place] for years and prior to that he lived in [place]. Patient reports that he wants to say that he is not going to drink, but once he is around the same people and places he ends up drinking. Patient reports at this time he does not have money to buy alcohol and is afraid that he is going to withdraw when he leaves. Patient reports that he is feeling happy because he was able to eat, take a shower, and was hoping he would get to shave. Patient reports that although he likes [place] he does not feel there is a lot of resources for homelessness to include housing assistance. Patient reports that someone at [facility] told him they would help with applying for housing assistance. Patient reports that he misses [place] because there was a lot more to do there. Medication recommendations made by contracted [facility] provider Dr. Jessica MD includes: None Diagnosis: V 60.0 (Z 59.0) homelessness 311 (F32.9) unspecified depressive disorder ( per patient report) 303.90 (F 10.20) alcohol use disorder; severe Impression/plan: Recommendation to rescind involuntary commitment due to patient not meeting criteria [place] 122C. Patient denied suicidal intent and plan, patient denied homicidal ideation intent and plan, clinician observed patient is not responding to internal stimuli or psychotic. Patient reports drinking puts him into a depression where he states suicidal thoughts and feelings. Clinician observed patient's eyes are entirely red, patient appears as if he has not slept. Clinician observed patient reports he slept through the night. Clinician provided education about alcohol use and addiction, and gave patient the opportunity to ask questions regarding substance use. Clinician provided education about substance use treatment and its effectiveness in treating addiction. Clinician provided education about local resources for homelessness. patient denied wanting detox however stated he will continue to follow-up with [facility] services and will go today as a walk-in to complete paperwork that he was not able to complete yesterday. Attending physician in agreement with plan and disposition. Consulted with Dr. Judge regarding the management and care of patient.
--- NOTE | 2017-08-02 09:53 | ER Document Report ---
Doctor's Note Notes: 08/02/17 09:52 52-year-old male with a history of alcohol abuse and dependence who presents with suicidal ideations. Vital signs are stable with slightly elevated blood pressure with a normal heart rate. Patient is denying any suicidal ideations at this time. Patient is calm and cooperative in no acute distress. Awaiting psychiatric evaluation. Blood alcohol level 86 upon arrival. Labs otherwise as recorded. 08/02/17 12:04 Psychiatry is seen and evaluated the patient and they do not feel that the patient requires IVC or placement. Patient states he has no desire to stop drinking at this time. He states that after having a shower and food here at this facility he feels much improved. He denies any suicidal ideations at this time. He denies any auditory or visual hallucinations. We did provide outpatient alcohol treatment options for the patient in case the patient would change his mind.
[2017-08-02] MEDS ORDERED: NICOTINE 21 MG/24 HR PATCH.TD24 TD ONE (11:58)
[2017-08-02 12:14] VITALS: BP 147/88
[2017-08-02] MEDS ORDERED: AMLODIPINE BESYLATE 5 MG TABLET PO ONE (13:07)
== END 2017-08-02 13:13 | disposition home or self-care (01) ==
LOC: ER 15:59
DX: R45.851 Suicidal ideations (principal); F10.20 Alcohol dependence, uncomplicated; Z59.0 Homelessness; F17.210 Nicotine dependence, cigarettes, uncomplicated; I10 Essential (primary) hypertension
CPT/HCPCS: 36415; 80053; 80307; 81001; 85025; 93005; 93010; 99285

== ENCOUNTER 2017-08-02 20:33 | Emergency (ER) | payer SELFPAY ==
[2017-08-02 21:30] LABS: ABSOLUTE BASOPHILS # (AUTO) 0.1 10^3/uL (0.0-0.2); ABSOLUTE EOSINOPHILS # (AUTO) 0.2 10^3/uL (0.0-0.6); ABSOLUTE LYMPHOCYTES (AUTO) 1.5 10^3/uL (0.5-4.7); ABSOLUTE MONOCYTES (AUTO) 1.3 10^3/uL (0.1-1.4); ABSOLUTE NEUT (AUTO) 12.5 10^3/uL (1.7-8.2); BASOPHILS % (AUTO) 0.6 % (0-2); EOSINOPHILS % (AUTO) 1.5 % (0-6); HEMATOCRIT 50.1 % (37.9-51.0); HEMOGLOBIN 16.9 g/dL (13.5-17.0); LYMPHOCYTES % (AUTO) 9.4 % (13-45); MEAN CORPUSCULAR HEMOGLOBIN 30.9 pg (27.0-33.4); MEAN CORPUSCULAR HGB CONC 33.7 g/dL (32.0-36.0); MEAN CORPUSCULAR VOLUME 92 fl (80-97); MONOCYTES % (AUTO) 8.6 % (3-13); PLATELET COUNT 274 10^3/uL (150-450); RED BLOOD COUNT 5.45 10^6/uL (4.35-5.55); RED CELL DISTRIBUTION WIDTH 14.4 % (11.5-14.0); SEGMENTED NEUTROPHILS % (AUTO) 79.9 % (42-78); TOTAL CELLS COUNTED % (AUTO) 100 %; WHITE BLOOD COUNT 15.6 10^3/uL (4.0-10.5)
[2017-08-02 21:31] LABS: APPEARANCE,URINE CLEAR; BILIRUBIN,URINE NEGATIVE (NEGATIVE); COLOR,URINE COLORLESS; GLUCOSE, URINE NEGATIVE (NEGATIVE); KETONES,URINE NEGATIVE (NEGATIVE); LEUKOCYTE ESTERASE,URINE NEGATIVE (NEGATIVE); NITRITE,URINE NEGATIVE (NEGATIVE); PROTEIN,URINE NEGATIVE (NEGATIVE); URINE SPECIFIC GRAVITY 1.001; UROBILINOGEN,URINE NEGATIVE mg/dL (<2.0)
[2017-08-02 21:48] LABS: URINE AMPHETAMINES SCREEN NEGATIVE; URINE BARBITURATES SCREEN NEGATIVE; URINE BENZODIAZEPINES SCREEN NEGATIVE; URINE COCAINE SCREEN NEGATIVE; URINE MARIJUANA (THC) SCREEN NEGATIVE; URINE METHADONE SCREEN NEGATIVE; URINE PHENCYCLIDINE SCREEN NEGATIVE
[2017-08-02 21:49] LABS: ALANINE AMINOTRANSFERASE 37 U/L (21-72); ALBUMIN 4.9 g/dL (3.5-5.0); ALCOHOL 127 mg/dL (NONE DETECTED); ALKALINE PHOSPHATASE 35 U/L (38-126); ANION GAP 17 (5-19); ASPARTATE AMINO TRANSFERASE 28 U/L (17-59); BILIRUBIN,DIRECT 0.2 mg/dL (0.0-0.4); BILIRUBIN,TOTAL 0.2 mg/dL (0.2-1.3); BLOOD UREA NITROGEN 12 mg/dL (7-20); CALCIUM 9.7 mg/dL (8.4-10.2); CARBON DIOXIDE 19 mmol/L (22-30); CHLORIDE 102 mmol/L (98-107); GLUCOSE 107 mg/dL (75-110); POTASSIUM 3.7 mmol/L (3.6-5.0); SODIUM 138.2 mmol/L (137-145); TOTAL PROTEIN 7.9 g/dL (6.3-8.2)
[2017-08-02 21:54] LABS: ACETAMINOPHEN < 10 ug/mL (10-30); SALICYLATE < 1.0 mg/dL (2.0-20.0)
--- NOTE | 2017-08-02 22:24 | ER Document Report ---
ED General - General Chief Complaint: Psych Problem Stated Complaint: SUICIDAL IDEATION Time Seen by Provider: 08/02/17 21:45 Mode of Arrival: Ambulatory Information source: Patient, Emergency Med Personnel, [facility] Records - Dr. Judge , Outside Facility Records Notes: 52-year-old male with hypertension, alcohol abuse presents for the third time in 3 days with reports of suicide attempt via playing in traffic. Patient states that he drank 4-40 ounce beers after being discharged from the hospital today. He states that he was dodging cars on [address] when bystanders took them in their car and brought him to the hospital. TRAVEL OUTSIDE OF THE [place] IN LAST 30 DAYS: No - HPI Onset: Just prior to arrival Quality of pain: No pain Associated symptoms: None Exacerbated by: Denies Relieved by: Denies Similar symptoms previously: Yes Recently seen / treated by doctor: Yes - Related Data Allergies/Adverse Reactions: No Known Allergies Allergy (Verified 01/18/17 09:54) Past Medical History - General Information source: Patient, [facility] Records - Social History Smoking Status: Current Every Day Smoker Chew tobacco use (# tins/day): No Frequency of alcohol use: Heavy Drug Abuse: None Lives with: Homeless Family History: Reviewed & Not Pertinent, Other - both his mother and father had AK's in thier 40's Patient has suicidal ideation: Yes Patient has homicidal ideation: No - Past Medical History Cardiac Medical History: Reports: Hx Atrial Fibrillation, Hx Hypercholesterolemia, Hx Hypertension Pulmonary Medical History: Denies: Hx Tuberculosis Renal/ Medical History: Denies: Hx Peritoneal Dialysis - Immunizations Immunizations up to date: Yes Hx Diphtheria, Pertussis, Tetanus Vaccination: Yes Review of Systems - Review of Systems Notes: REVIEW OF SYSTEMS: CONSTITUTIONAL : Denies fever, chills, or sweats. Denies recent illness. Denies weight loss, recent hospitalizations. EENT: Denies visula changes, eye pain. Denies nasal or sinus congestion or discharge. Denies sore throat, oral lesions, difficulty swallowing. CARDIOVASCULAR: Denies chest pain. Denies palpitations or racing or irregular heart beat. Denies lower extremity edema. RESPIRATORY: Denies cough, cold, or chest congestion. Denies shortness of breath, difficulty breathing, or wheezing. GASTROINTESTINAL: Denies abdominal pain or distention. Denies nausea, vomiting , or diarrhea. Denies blood in vomitus, stools, or per rectum. Denies black, tarry stools. Denies constipation. GENITOURINARY: Denies difficulty urinating, painful urination, burning, frequency, blood in urine, or vaginal discharge. MUSCULOSKELETAL: Denies back or neck pain or stiffness. Denies joint pain or swelling. SKIN: Denies rash, lesions or sores. HEMATOLOGIC : Denies easy bruising or bleeding. LYMPHATIC: Denies swollen, enlarged glands. NEUROLOGICAL: Denies confusion or altered mental status. Denies passing out or loss of consciousness. Denies dizziness or lightheadedness. Denies headache. Denies weakness or paralysis or loss of use of either side. Denies problems with gait or speech. Denies sensory loss, numbness, or tingling. Denies seizures. PSYCHIATRIC: Denies anxiety or stress. Admits to suicidal ideation. Physical Exam - Vital signs Vitals: Temp Pulse Resp BP Pulse Ox 98.3 F 121 H 20 164/94 H 98 08/02/17 20:49 08/02/17 20:49 08/02/17 20:49 08/02/17 20:49 08/02/17 20:49 Interpretation: Normal, Hypertensive, Tachycardic - Notes Notes: PHYSICAL EXAMINATION: GENERAL: Well-appearing, well-nourished and in no acute distress. HEAD: Atraumatic, normocephalic. EYES: Pupils equal round and reactive to light, extraocular movements intact, sclera anicteric, conjunctiva are normal. ENT: Nares patent, oropharynx clear without exudates. Moist mucous membranes. NECK: Normal range of motion, supple without lymphadenopathy LUNGS: Breath sounds clear to auscultation bilaterally and equal. No wheezes rales or rhonchi. HEART: Regular rate and rhythm without murmurs ABDOMEN: Soft, nontender, nondistended abdomen. No guarding, no rebound. No masses appreciated. Musculoskeletal: Normal range of motion, no pitting or edema. No cyanosis. NEUROLOGICAL: Cranial nerves grossly intact. Normal speech, normal gait. Normal sensory, motor exams PSYCH: Admits to suicidal attempt playing in traffic. SKIN: Warm, Dry, normal turgor, no rashes or lesions noted. Course - Re-evaluation Re-evalutation: Laboratory 08/02/17 08/02/17 08/02/17 21:15 21:15 21:15 WBC 15.6 H RBC 5.45 Hgb 16.9 Hct 50.1 MCV 92 MCH 30.9 MCHC 33.7 RDW 14.4 H Plt Count 274 Seg Neutrophils % 79.9 H Lymphocytes % 9.4 L Monocytes % 8.6 Eosinophils % 1.5 Basophils % 0.6 Absolute Neutrophils 12.5 H Absolute Lymphocytes 1.5 Absolute Monocytes 1.3 Absolute Eosinophils 0.2 Absolute Basophils 0.1 Sodium 138.2 Potassium 3.7 Chloride 102 Carbon Dioxide 19 L Anion Gap 17 BUN 12 Creatinine 0.88 Est GFR ( Amer) > 60 Est GFR (Non-Af Amer) > 60 Glucose 107 Calcium 9.7 Total Bilirubin 0.2 Direct Bilirubin 0.2 Neonat Total Bilirubin Not Reportable Neonat Direct Bilirubin Not Reportable Neonat Indirect Bili Not Reportable AST 28 ALT 37 Alkaline Phosphatase 35 L Total Protein 7.9 Albumin 4.9 Urine Color COLORLESS Urine Appearance CLEAR Urine pH 5.0 Ur Specific [place] 1.001 Urine Protein NEGATIVE Urine Glucose (UA) NEGATIVE Urine Ketones NEGATIVE Urine Blood NEGATIVE Urine Nitrite NEGATIVE Urine Bilirubin NEGATIVE Urine Urobilinogen NEGATIVE Ur Leukocyte Esterase NEGATIVE Urine Mucus (Auto) RARE Urine Ascorbic Acid NEGATIVE Salicylates < 1.0 L Urine Opiates Screen Urine Methadone Screen Acetaminophen < 10 L Ur Barbiturates Screen Ur Phencyclidine Scrn Ur Amphetamines Screen U Benzodiazepines Scrn Urine Cocaine Screen U Marijuana (THC) Screen Serum Alcohol 127 08/02/17 21:15 WBC RBC Hgb Hct MCV MCH MCHC RDW Plt Count Seg Neutrophils % Lymphocytes % Monocytes % Eosinophils % Basophils % Absolute Neutrophils Absolute Lymphocytes Absolute Monocytes Absolute Eosinophils Absolute Basophils Sodium Potassium Chloride Carbon Dioxide Anion Gap BUN Creatinine Est GFR ( Amer) Est GFR (Non-Af Amer) Glucose Calcium Total Bilirubin Direct Bilirubin Neonat Total Bilirubin Neonat Direct Bilirubin Neonat Indirect Bili AST ALT Alkaline Phosphatase Total Protein Albumin Urine Color Urine Appearance Urine pH Ur Specific [place] Urine Protein Urine Glucose (UA) Urine Ketones Urine Blood Urine Nitrite Urine Bilirubin Urine Urobilinogen Ur Leukocyte Esterase Urine Mucus (Auto) Urine Ascorbic Acid Salicylates Urine Opiates Screen NEGATIVE Urine Methadone Screen NEGATIVE Acetaminophen Ur Barbiturates Screen NEGATIVE Ur Phencyclidine Scrn NEGATIVE Ur Amphetamines Screen NEGATIVE U Benzodiazepines Scrn NEGATIVE Urine Cocaine Screen NEGATIVE U Marijuana (THC) Screen NEGATIVE Serum Alcohol 05/22/18 23:36 52-year-old male with a history of of alcohol abuse, homelessness presents for the third time in 3 days with report of suicide attempt. Patient was discharged this morning states when he left he began drinking. He states he drank 4, 40 ounce beers and decided to play "Frogger" in traffic. He states by standards took him into their car and brought him to the hospital. Patient is alert and oriented 4 upon my exam. He states he was trying to get hit by a car. I did speak to Dr. Judge who is very familiar with the patient. Patient has been offered multiple resources and continues to be noncompliant. This morning patient declining intervention. Dr. Judge states that the patient is on the verge of having charges pressed against him for abuse of the system. She states that if the patient is alert and oriented and is able to ambulate that he can be discharged home. Patient is alert, oriented and ambulates without difficulty. Patient's alcohol level is 127. Patient discharged home in stable condition. If patient returns Dr. Judge should be called immediately. - Vital Signs Vital signs: Temp Pulse Resp BP Pulse Ox 98.3 F 89 20 155/84 H 99 08/02/17 20:49 08/02/17 22:35 08/02/17 22:35 08/02/17 22:35 08/02/17 22:35 - Laboratory Result Diagrams: 08/02/17 21:15 08/02/17 21:15 Laboratory results interpreted by me: 08/02/17 08/02/17 21:15 21:15 WBC 15.6 H RDW 14.4 H Seg Neutrophils % 79.9 H Lymphocytes % 9.4 L Absolute Neutrophils 12.5 H Carbon Dioxide 19 L Alkaline Phosphatase 35 L Salicylates < 1.0 L Acetaminophen < 10 L Discharge - Discharge Clinical Impression: Alcohol abuse, Homeless, Intoxication Condition: Good Disposition: HOME, SELF-CARE Instructions: Chronic Alcoholism ([facility]) Forms: Elevated Blood Pressure, Smoking Cessation Education
[2017-08-02 23:21] VITALS: BP 155/84
--- NOTE | 2017-08-03 07:16 | EKG REPORT ---
SEVERITY:- OTHERWISE NORMAL ECG - SINUS TACHYCARDIA : Confirmed by: Kai Carbajal MD 03-Aug-2017 07:16:22
== END 2017-08-02 22:35 | disposition home or self-care (01) ==
LOC: ER 20:33
DX: F10.129 Alcohol abuse with intoxication, unspecified (principal); Y90.6 Blood alcohol level of 120-199 mg/100 ml; Z59.0 Homelessness; R45.851 Suicidal ideations; F17.200 Nicotine dependence, unspecified, uncomplicated; I48.91 Unspecified atrial fibrillation; E78.00 Pure hypercholesterolemia, unspecified; I10 Essential (primary) hypertension
CPT/HCPCS: 36415; 80053; 80307; 81001; 85025; 93005; 93010; 99284

== ENCOUNTER 2017-08-23 18:59 | Emergency (ER) | payer SELFPAY ==
[2017-08-23] MEDS ORDERED: LEVETIRACETAM 1500 MG/NACL-ISO 1,500 MG/100 ML RTUPB IV ONE (19:18)
--- NOTE | 2017-08-23 19:22 | ER Document Report ---
ED General - General Mode of Arrival: Medic Information source: Patient TRAVEL OUTSIDE OF THE [place] IN LAST 30 DAYS: No <MIMI MARS - Last Filed: 08/23/17 21:03> <FRANCK TREVIÑO - Last Filed: 08/24/17 02:40> - General Stated Complaint: ETOH Time Seen by Provider: 08/23/17 19:12 Notes: 52 y.o male with HTN, Afib and alcohol abuse presents to the ED s/p seizure. EMS reports that pt has been drinking heavily today and had a seizure today that lasted about 15 minutes. When EMS arrived he was postictal and disorientated to time; he thought it was 2017. Pt reports a history of seizures and states that he takes seizure medications at home but has not been taking his medications recently and has had seizures for the past couple of days, reporting one yesterday and one today. He reports that he is also supposed to be taking HTN medication but has not taken his HTN medications in the past 4 days because he needs a refill. Pt keeps asking to leave and has no complaints right now. (MIMI MARS) - Related Data Allergies/Adverse Reactions: No Known Allergies Allergy (Verified 01/18/17 09:54) Past Medical History - General Information source: Patient - Social History Frequency of alcohol use: Heavy Family History: Reviewed & Not Pertinent, Other - both his mother and father had AK's in thier 40's - Past Medical History Cardiac Medical History: Reports: Hx Atrial Fibrillation, Hx Hypercholesterolemia, Hx Hypertension Renal/ Medical History: Denies: Hx Peritoneal Dialysis - Immunizations Immunizations up to date: Yes Hx Diphtheria, Pertussis, Tetanus Vaccination: Yes <MIMI MARS - Last Filed: 08/23/17 21:03> - Social History Smoking Status: Unknown if Ever Smoked Frequency of alcohol use: Heavy Drug Abuse: None <FRANCK TREVIÑO - Last Filed: 08/24/17 02:40> Review of Systems - Review of Systems Constitutional: No symptoms reported EENT: No symptoms reported Cardiovascular: No symptoms reported Respiratory: No symptoms reported Gastrointestinal: No symptoms reported Genitourinary: No symptoms reported Male Genitourinary: No symptoms reported Musculoskeletal: No symptoms reported Skin: No symptoms reported Hematologic/Lymphatic: No symptoms reported Neurological/Psychological: See HPI, Seizure, Other - postictal -: Yes All other systems reviewed and negative <MIMI MARS - Last Filed: 08/23/17 21:03> Physical Exam <MIMI AMRS - Last Filed: 08/23/17 21:03> <FRANCK TREVIÑO - Last Filed: 08/24/17 02:40> - Vital signs Vitals: Temp Pulse Resp BP Pulse Ox 97.8 F 118 H 18 162/112 H 94 08/23/17 19:12 08/23/17 19:12 08/23/17 19:12 08/23/17 19:12 08/23/17 19:12 - Notes Notes: Physical Exam: General: Smells of ETOH. Initially was attempting to crawl out of room on his hands and knees. HEENT: Normocephalic. Atraumatic. PERRL. Extraocular movements intact. Oropharynx clear. Neck: Supple. Non-tender. Respiratory: No respiratory distress. Clear and equal breath sounds bilaterally. Cardiovascular: Regular rate and rhythm. Abdominal: Normal Inspection. Non-tender. No distension. Normal Bowel Sounds. Back: Non-tender. No deformity or step off. Extremities: Moves all four extremities. Upper extremities: Normal inspection. Normal ROM. Lower extremities: Normal inspection. No edema. Normal ROM. Neurological: Normal cognition. AAOx3. Normal speech. Psychological: Pleasant. Skin: Warm. Dry. Normal color. (MIMI MARS) Course - Laboratory Result Diagrams: 08/23/17 20:03 08/23/17 20:03 <MIMI MARS - Last Filed: 08/23/17 21:03> - Laboratory Result Diagrams: 08/23/17 20:03 08/23/17 20:03 <FRANCK TREVIÑO - Last Filed: 08/24/17 02:40> - Re-evaluation Re-evalutation: 08/23/17 20:25 Patient is more agitated. Threatening to take his IV out. 08/23/17 21:00 pt can ambulate easily. No slurred speech. He has a ride home who is going to stay with him for the rest of the evening. (MIMI MARS) Patient is a 52-year-old male with a history of seizures and also alcohol abuse who comes in after having had a seizure. Alcohol is over 300. Patient has not been taking Keppra or blood pressure medication. He is loaded with Keppra here. He is encouraged to decrease his alcohol consumption. Patient has been asking to go home since he got here. He called for a ride and his friend will stay with him for the evening. Patient is able to walk and talk without difficulty. He is to take his seizure medicine and antihypertensive. These have been refilled. Follow-up with PMD this week. Understands and agrees with plan. Stable for discharge. (FRANCK TREVIÑO) - Vital Signs Vital signs: Temp Pulse Resp BP Pulse Ox 97.8 F 98 18 155/83 H 95 08/23/17 19:12 08/23/17 20:06 08/23/17 19:12 08/23/17 20:06 08/23/17 20:06 - Laboratory Laboratory results interpreted by me: 08/23/17 08/23/17 20:03 20:03 RDW 14.9 H Sodium 148.4 H Chloride 110 H Carbon Dioxide 21 L BUN 6 L Glucose 168 H Serum Alcohol 324 H* Discharge <MIMI MARS - Last Filed: 08/23/17 21:03> <FRANCK TREVIÑO - Last Filed: 08/24/17 02:40> - Discharge Clinical Impression: Seizure Alcohol intoxication Qualifiers: Complication of substance-induced condition: uncomplicated Qualified Code(s): F10.920 - Alcohol use, unspecified with intoxication, uncomplicated Condition: Stable Disposition: HOME, SELF-CARE Instructions: Acute Alcohol Intoxication ([facility]), Chronic Alcoholism ([facility]), Seizure, Known Epileptic ([facility]) Additional Instructions: Please return immediately if you have any further concerns. Call your primary doctor in the morning for an appointment. Prescriptions: Amlodipine Besylate 5 mg PO DAILY #30 tab Levetiracetam [Keppra 500 mg Tablet] 500 mg PO Q12 #60 tablet Forms: Smoking Cessation Education Referrals: [facility] [Provider Group] - Follow up as needed Scribe Attestation: 08/24/17 02:39 I personally performed the services described in the documentation, reviewed and edited the documentation which was dictated to the scribe in my presence, and it accurately records my words and actions. (FRANCK TREVIÑO) Scribe Documentation - Scribe Written by Christy:: Christy Amado 08/23/17 0925 acting as scribe for :: Magda <MIMI MARS - Last Filed: 08/23/17 21:03>
[2017-08-23] MEDS ORDERED: AMLODIPINE BESYLATE 5 MG TABLET PO ONE (19:25)
[2017-08-23] MEDS ORDERED: NICOTINE 21 MG/24 HR PATCH.TD24 TD ONE (19:26)
[2017-08-23] MEDS ORDERED: LEVETIRACETAM 1000 MG/NACL-ISO 1,000 MG/100 ML RTUPB IV ONE (20:12)
[2017-08-23] MEDS ORDERED: LEVETIRACETAM 500 MG/NACL-ISO 500 MG/100 ML RTUPB IV ONE (20:12)
[2017-08-23 20:19] LABS: ABSOLUTE BASOPHILS # (AUTO) 0.1 10^3/uL (0.0-0.2); ABSOLUTE EOSINOPHILS # (AUTO) 0.3 10^3/uL (0.0-0.6); ABSOLUTE LYMPHOCYTES (AUTO) 2.2 10^3/uL (0.5-4.7); ABSOLUTE MONOCYTES (AUTO) 0.8 10^3/uL (0.1-1.4); ABSOLUTE NEUT (AUTO) 5.2 10^3/uL (1.7-8.2); BASOPHILS % (AUTO) 1.3 % (0-2); EOSINOPHILS % (AUTO) 3.4 % (0-6); HEMATOCRIT 47.8 % (37.9-51.0); HEMOGLOBIN 16.3 g/dL (13.5-17.0); LYMPHOCYTES % (AUTO) 25.5 % (13-45); MEAN CORPUSCULAR HEMOGLOBIN 31.6 pg (27.0-33.4); MEAN CORPUSCULAR HGB CONC 34.2 g/dL (32.0-36.0); MEAN CORPUSCULAR VOLUME 93 fl (80-97); PLATELET COUNT 297 10^3/uL (150-450); RED BLOOD COUNT 5.16 10^6/uL (4.35-5.55); RED CELL DISTRIBUTION WIDTH 14.9 % (11.5-14.0); SEGMENTED NEUTROPHILS % (AUTO) 60.8 % (42-78); TOTAL CELLS COUNTED % (AUTO) 100 %; WHITE BLOOD COUNT 8.6 10^3/uL (4.0-10.5)
[2017-08-23 20:32] LABS: ANION GAP 17 (5-19); BLOOD UREA NITROGEN 6 mg/dL (7-20); CALCIUM 9.3 mg/dL (8.4-10.2); CARBON DIOXIDE 21 mmol/L (22-30); CHLORIDE 110 mmol/L (98-107); GLUCOSE 168 mg/dL (75-110); POTASSIUM 4.5 mmol/L (3.6-5.0); SODIUM 148.4 mmol/L (137-145)
[2017-08-23 20:41] LABS: ALCOHOL 324 mg/dL (NONE DETECTED)
[2017-08-24 03:24] VITALS: BP 153/83
== END 2017-08-23 21:21 | disposition home or self-care (01) ==
LOC: ER 18:59
DX: R56.9 Unspecified convulsions (principal); F10.920 Alcohol use, unspecified with intoxication, uncomplicated; Y90.8 Blood alcohol level of 240 mg/100 ml or more; I48.91 Unspecified atrial fibrillation; E78.00 Pure hypercholesterolemia, unspecified; I10 Essential (primary) hypertension
CPT/HCPCS: 99284; 96365; 36415; 80307; 85025; 80048; J1953 ×2

== ENCOUNTER 2017-09-08 21:45 | Emergency (ER) | payer SELFPAY ==
[2017-09-08] MEDS ORDERED: NICOTINE 21 MG/24 HR PATCH.TD24 TD ONE (21:55)
[2017-09-08] MEDS ORDERED: LORAZEPAM INJ 2 MG/1 ML VIAL IV ONE (21:57)
[2017-09-08] MEDS ORDERED: RINGERS SOLUTION,LACTATED 1,000 ML IV PRN (21:58)
[2017-09-08 22:35] LABS: ABSOLUTE BASOPHILS # (AUTO) 0.1 10^3/uL (0.0-0.2); ABSOLUTE EOSINOPHILS # (AUTO) 0.3 10^3/uL (0.0-0.6); ABSOLUTE LYMPHOCYTES (AUTO) 1.8 10^3/uL (0.5-4.7); ABSOLUTE MONOCYTES (AUTO) 1.1 10^3/uL (0.1-1.4); ABSOLUTE NEUT (AUTO) 5.6 10^3/uL (1.7-8.2); EOSINOPHILS % (AUTO) 3.2 % (0-6); HEMATOCRIT 44.5 % (37.9-51.0); HEMOGLOBIN 15.4 g/dL (13.5-17.0); LYMPHOCYTES % (AUTO) 20.3 % (13-45); MEAN CORPUSCULAR HEMOGLOBIN 31.7 pg (27.0-33.4); MEAN CORPUSCULAR HGB CONC 34.6 g/dL (32.0-36.0); MEAN CORPUSCULAR VOLUME 92 fl (80-97); MONOCYTES % (AUTO) 12.8 % (3-13); PLATELET COUNT 221 10^3/uL (150-450); RED BLOOD COUNT 4.86 10^6/uL (4.35-5.55); RED CELL DISTRIBUTION WIDTH 14.8 % (11.5-14.0); SEGMENTED NEUTROPHILS % (AUTO) 62.7 % (42-78); TOTAL CELLS COUNTED % (AUTO) 100 %
[2017-09-08 22:53] LABS: ALANINE AMINOTRANSFERASE 58 U/L (21-72); ALBUMIN 4.4 g/dL (3.5-5.0); ALCOHOL 217 mg/dL (NONE DETECTED); ALKALINE PHOSPHATASE 48 U/L (38-126); ANION GAP 12 (5-19); ASPARTATE AMINO TRANSFERASE 66 U/L (17-59); BILIRUBIN,DIRECT 0.3 mg/dL (0.0-0.4); BILIRUBIN,TOTAL 0.4 mg/dL (0.2-1.3); BLOOD UREA NITROGEN 9 mg/dL (7-20); CALCIUM 9.1 mg/dL (8.4-10.2); CARBON DIOXIDE 23 mmol/L (22-30); CHLORIDE 108 mmol/L (98-107); GLUCOSE 95 mg/dL (75-110); POTASSIUM 4.3 mmol/L (3.6-5.0); SODIUM 143.4 mmol/L (137-145); TOTAL PROTEIN 7.5 g/dL (6.3-8.2)
[2017-09-08 23:57] LABS: APPEARANCE,URINE CLEAR; BILIRUBIN,URINE NEGATIVE (NEGATIVE); COLOR,URINE STRAW; GLUCOSE, URINE NEGATIVE (NEGATIVE); KETONES,URINE NEGATIVE (NEGATIVE); LEUKOCYTE ESTERASE,URINE NEGATIVE (NEGATIVE); NITRITE,URINE NEGATIVE (NEGATIVE); PROTEIN,URINE NEGATIVE (NEGATIVE); URINE SPECIFIC GRAVITY 1.004; UROBILINOGEN,URINE NEGATIVE mg/dL (<2.0)
[2017-09-09 00:14] LABS: URINE AMPHETAMINES SCREEN NEGATIVE; URINE BARBITURATES SCREEN NEGATIVE; URINE BENZODIAZEPINES SCREEN NEGATIVE; URINE COCAINE SCREEN NEGATIVE; URINE MARIJUANA (THC) SCREEN NEGATIVE; URINE PHENCYCLIDINE SCREEN NEGATIVE
--- NOTE | 2017-09-09 00:18 | EKG REPORT ---
SEVERITY:- NORMAL ECG - SINUS RHYTHM : Confirmed by: Barbara Curran MD 09-Sep-2017 00:16:40
[2017-09-09 00:22] LABS: URINE METHADONE SCREEN NEGATIVE
--- NOTE | 2017-09-09 00:40 | ER Document Report ---
ED General - General Chief Complaint: Probable Seizure Stated Complaint: POSSIBLE SEIZURE Time Seen by Provider: 09/08/17 21:55 Mode of Arrival: Ambulatory Information source: Patient Notes: Chief complaint: Intoxicated History of complain:( obtained from----patient) 52 years old male was brought in today because he was intoxicated with alcohol, uncontrollable but not violent. Wanted to go home and getting up all the time from bed to try to walk , one time he fell on the ground on his back. No injuries. Would not listen to the staff. Therefore he was put on four-point restraint. He states he feels fine. Denies any complain Onset: As above Duration: Unknown Severity: Mild to moderate Quality: Unknown Context: Alcohol abuse Exacerbating factor and relieving factors: Unknown REVIEW OF SYSTEMS: CONSTITUTIONAL : Denies fever, chills, or sweats. Denies recent illness. EENT: Denies eye, ear, throat, or mouth pain or symptoms. Denies nasal or sinus congestion or discharge. Denies throat, tongue, or mouth swelling or difficulty swallowing. CARDIOVASCULAR: Denies chest pain. Denies palpitations or racing or irregular heart beat. Denies ankle edema. RESPIRATORY: Denies cough, cold, or chest congestion. Denies shortness of breath, difficulty breathing, or wheezing. GASTROINTESTINAL: Denies distention. Denies nausea, vomiting, or diarrhea. Denies blood in vomitus, stools, or per rectum. Denies black, tarry stools. Denies constipation. GENITOURINARY: Denies difficulty urinating, painful urination, burning, frequency, blood in urine, or discharge. FEMALE GENITOURINARY: Denies vaginal bleeding, heavy or abnormal periods, irregular periods. Denies vaginal discharge or odor. MUSCULOSKELETAL: Denies back or neck pain or stiffness. Denies joint pain or swelling. SKIN: Denies rash, lesions or sores. HEMATOLOGIC : Denies easy bruising or bleeding. LYMPHATIC: Denies swollen, enlarged glands. NEUROLOGICAL: Denies confusion or altered mental status. Denies passing out or loss of consciousness. Denies dizziness or lightheadedness. Denies headache. Denies weakness or paralysis or loss of use of either side. Denies problems with gait or speech. Denies sensory loss, numbness, or tingling. Denies seizures. PSYCHIATRIC: Denies anxiety or stress. Denies depression, suicidal ideation, or homicidal ideation. ALL OTHER SYSTEMS REVIEWED AND NEGATIVE. PHYSICAL EXAMINATION: GENERAL: Well-appearing, well-nourished and in no acute distress. HEAD: Atraumatic, normocephalic. EYES: Pupils equal round and reactive to light, extraocular movements intact, conjunctiva are normal. ENT: Nares patent, oropharynx clear without exudates. Moist mucous membranes. NECK: Normal range of motion, supple without lymphadenopathy LUNGS: Breath sounds clear to auscultation bilaterally and equal. No wheezes rales or rhonchi. HEART: Regular rate and rhythm without murmurs ABDOMEN: Soft, nontender, nondistended abdomen. No guarding, no rebound. No masses appreciated. Examination of genitals-deferred Musculoskeletal: Normal range of motion, no pitting or edema. No cyanosis. NEUROLOGICAL: Cranial nerves grossly intact. Normal speech, normal gait. Normal sensory, motor exams PSYCH: Normal mood, normal affect. SKIN: Warm, Dry, normal turgor, no rashes or lesions noted. Dictation was performed using [employer] voice recognition software TRAVEL OUTSIDE OF THE [place] IN LAST 30 DAYS: No - Related Data Allergies/Adverse Reactions: No Known Allergies Allergy (Verified 01/18/17 09:54) Past Medical History - Social History Smoking Status: Unknown if Ever Smoked Chew tobacco use (# tins/day): No Frequency of alcohol use: Heavy Drug Abuse: None Family History: Reviewed & Not Pertinent, Other - both his mother and father had IL's in thier 40's Patient has suicidal ideation: No Patient has homicidal ideation: No - Past Medical History Cardiac Medical History: Reports: Hx Atrial Fibrillation, Hx Hypercholesterolemia, Hx Hypertension Pulmonary Medical History: Denies: Hx Tuberculosis Renal/ Medical History: Denies: Hx Peritoneal Dialysis - Immunizations Immunizations up to date: Yes Hx Diphtheria, Pertussis, Tetanus Vaccination: Yes Review of Systems - Review of Systems Notes: Dictated Physical Exam - Vital signs Vitals: Temp Pulse Resp BP Pulse Ox 97.8 F 90 20 115/78 96 09/09/17 00:15 09/09/17 00:15 09/09/17 00:15 09/09/17 00:15 09/09/17 00:15 - Notes Notes: Dictated Course - Re-evaluation Re-evalutation: 09/09/17 00:39 Put on four-point restraint given IV fluid at given Ativan - Vital Signs Vital signs: Temp Pulse Resp BP Pulse Ox 97.8 F 90 20 115/78 96 09/09/17 00:15 09/09/17 00:15 09/09/17 00:15 09/09/17 00:15 09/09/17 00:15 - Laboratory Result Diagrams: 09/08/17 22:27 09/08/17 22:27 Laboratory results interpreted by me: 09/08/17 09/08/17 22:27 22:27 RDW 14.8 H Chloride 108 H AST 66 H Discharge - Discharge Clinical Impression: ETOH abuse Condition: Fair Disposition: HOME, SELF-CARE Instructions: Chronic Alcoholism ([facility])
[2017-09-09] MEDS ORDERED: MIDAZOLAM HCL 50 MG/100 ML RTUINJ IV PRN (04:54)
[2017-09-09] MEDS ORDERED: MIDAZOLAM 2 MG/2 ML INJ IV ONE (04:54)
[2017-09-09 05:05] VITALS: BP 149/87
== END 2017-09-09 05:05 | disposition home or self-care (01) ==
LOC: ER 21:45
DX: F10.129 Alcohol abuse with intoxication, unspecified (principal); I10 Essential (primary) hypertension; Z78.1 Physical restraint status
CPT/HCPCS: 93005; 99285; 96361; 96374; 36415; 80307 ×2; 83735; 85025; 80053; 81001; 93010; J2060; J7120

== ENCOUNTER 2017-09-28 19:44 | Observation (INO) | payer SELFPAY ==
[2017-09-28] MEDS ORDERED: NICOTINE 21 MG/24 HR PATCH.TD24 TD ONE (19:58)
[2017-09-28] MEDS ORDERED: LEVETIRACETAM 500 MG TABLET PO ONE (19:58)
--- NOTE | 2017-09-28 20:00 | ER Document Report ---
ED Medical Screen (RME) - General Chief Complaint: Probable Seizure Stated Complaint: POSSIBLE SEIZURE Time Seen by Provider: 09/28/17 19:55 TRAVEL OUTSIDE OF THE [place] IN LAST 30 DAYS: No - HPI Patient complains to provider of: Seizure Onset: Just prior to arrival Notes: 09/28/17 19:59 Patient is a 52-year-old male brought to the emergency room by bystanders who apparently witnessed him having a seizure, he reports a history of epilepsy since he was a child, he is currently homeless and not taking his medications as he cannot afford them, denies any injury, is also a daily alcohol consumer, last drink was around 1:00 this afternoon - Related Data Allergies/Adverse Reactions: No Known Allergies Allergy (Verified 09/28/17 19:44) Past Medical History - Past Medical History Cardiac Medical History: Reports: Hx Atrial Fibrillation, Hx Hypercholesterolemia, Hx Hypertension Pulmonary Medical History: Denies: Hx Tuberculosis Renal/ Medical History: Denies: Hx Peritoneal Dialysis - Immunizations Immunizations up to date: Yes Hx Diphtheria, Pertussis, Tetanus Vaccination: Yes Physical Exam - Vital signs Vitals: Temp Pulse Resp BP Pulse Ox 98.0 F 115 H 16 164/102 H 96 09/28/17 19:49 09/28/17 19:49 09/28/17 19:49 09/28/17 19:49 09/28/17 19:49 Course - Vital Signs Vital signs: Temp Pulse Resp BP Pulse Ox 98.0 F 115 H 16 164/102 H 96 09/28/17 19:49 09/28/17 19:49 09/28/17 19:49 09/28/17 19:49 09/28/17 19:49
[2017-09-28 20:33] LABS: ABSOLUTE BASOPHILS # (AUTO) 0.1 10^3/uL (0.0-0.2); ABSOLUTE EOSINOPHILS # (AUTO) 0.1 10^3/uL (0.0-0.6); ABSOLUTE LYMPHOCYTES (AUTO) 1.7 10^3/uL (0.5-4.7); ABSOLUTE MONOCYTES (AUTO) 0.9 10^3/uL (0.1-1.4); ABSOLUTE NEUT (AUTO) 5.5 10^3/uL (1.7-8.2); BASOPHILS % (AUTO) 0.9 % (0-2); EOSINOPHILS % (AUTO) 1.7 % (0-6); HEMATOCRIT 48.4 % (37.9-51.0); HEMOGLOBIN 16.8 g/dL (13.5-17.0); MEAN CORPUSCULAR HEMOGLOBIN 32.2 pg (27.0-33.4); MEAN CORPUSCULAR HGB CONC 34.8 g/dL (32.0-36.0); MEAN CORPUSCULAR VOLUME 93 fl (80-97); MONOCYTES % (AUTO) 11.2 % (3-13); PLATELET COUNT 247 10^3/uL (150-450); RED BLOOD COUNT 5.23 10^6/uL (4.35-5.55); RED CELL DISTRIBUTION WIDTH 14.4 % (11.5-14.0); SEGMENTED NEUTROPHILS % (AUTO) 66.2 % (42-78); TOTAL CELLS COUNTED % (AUTO) 100 %; WHITE BLOOD COUNT 8.4 10^3/uL (4.0-10.5)
[2017-09-28 20:37] LABS: APPEARANCE,URINE CLEAR; BILIRUBIN,URINE NEGATIVE (NEGATIVE); COLOR,URINE STRAW; GLUCOSE, URINE NEGATIVE (NEGATIVE); KETONES,URINE NEGATIVE (NEGATIVE); LEUKOCYTE ESTERASE,URINE NEGATIVE (NEGATIVE); NITRITE,URINE NEGATIVE (NEGATIVE); PROTEIN,URINE NEGATIVE (NEGATIVE); URINE SPECIFIC GRAVITY 1.002; UROBILINOGEN,URINE NEGATIVE mg/dL (<2.0)
[2017-09-28] MEDS ORDERED: ACETAMINOPHEN 325 MG TABLET PO ONE (20:52)
[2017-09-28 20:54] LABS: ALANINE AMINOTRANSFERASE 132 U/L (21-72); ALBUMIN 4.8 g/dL (3.5-5.0); ALCOHOL 245 mg/dL (NONE DETECTED); ALKALINE PHOSPHATASE 51 U/L (38-126); ASPARTATE AMINO TRANSFERASE 118 U/L (17-59); BILIRUBIN,DIRECT 0.3 mg/dL (0.0-0.4); BILIRUBIN,TOTAL 0.3 mg/dL (0.2-1.3); BLOOD UREA NITROGEN 4 mg/dL (7-20); CALCIUM 9.8 mg/dL (8.4-10.2); GLUCOSE 112 mg/dL (75-110)
[2017-09-28 20:55] LABS: URINE AMPHETAMINES SCREEN NEGATIVE; URINE BARBITURATES SCREEN NEGATIVE; URINE BENZODIAZEPINES SCREEN NEGATIVE; URINE COCAINE SCREEN NEGATIVE; URINE MARIJUANA (THC) SCREEN NEGATIVE; URINE METHADONE SCREEN NEGATIVE; URINE PHENCYCLIDINE SCREEN NEGATIVE
[2017-09-28] MEDS ORDERED: LEVETIRACETAM 500 MG/NACL-ISO 500 MG/100 ML RTUPB IV ONE (21:09)
--- NOTE | 2017-09-28 21:11 | ER Document Report ---
ED Seizure - General Chief Complaint: Probable Seizure Stated Complaint: POSSIBLE SEIZURE Time Seen by Provider: 09/28/17 19:55 Notes: Patient is a 52-year-old male comes emergency department for chief complaint of seizure, he was witnessed to be having a seizure and fell to the ground, he states he was told that he hit his head when he fell on the ground. He reports a headache, seizure lasted about 2 minutes per bystanders. Patient has been drinking alcohol, he does have a history of alcohol abuse, seizures, hypertension. He also reports that for the past 3 days he has been having trouble moving and feeling his right arm/hand and his right leg/foot. He denies fever, vomiting, other locations of pain. He states he is homeless and cannot afford his Keppra medication. - Related Data Allergies/Adverse Reactions: No Known Allergies Allergy (Verified 09/28/17 19:44) Past Medical History - General Information source: Patient - Social History Smoking Status: Current Every Day Smoker Chew tobacco use (# tins/day): No Frequency of alcohol use: Heavy Drug Abuse: None Lives with: Alone Family History: Reviewed & Not Pertinent, Other - both his mother and father had IN's in thier 40's Patient has suicidal ideation: No Patient has homicidal ideation: No - Past Medical History Cardiac Medical History: Reports: Hx Atrial Fibrillation, Hx Hypercholesterolemia, Hx Hypertension Pulmonary Medical History: Denies: Hx Tuberculosis Renal/ Medical History: Denies: Hx Peritoneal Dialysis - Immunizations Immunizations up to date: Yes Hx Diphtheria, Pertussis, Tetanus Vaccination: Yes Review of Systems - Review of Systems Constitutional: No symptoms reported EENT: No symptoms reported Cardiovascular: No symptoms reported Respiratory: No symptoms reported Gastrointestinal: No symptoms reported Genitourinary: No symptoms reported Male Genitourinary: No symptoms reported Musculoskeletal: See HPI Skin: No symptoms reported Hematologic/Lymphatic: No symptoms reported Neurological/Psychological: See HPI Physical Exam - Vital signs Vitals: Temp Pulse Resp BP Pulse Ox 98.0 F 115 H 16 164/102 H 96 09/28/17 19:49 09/28/17 19:49 09/28/17 19:49 09/28/17 19:49 09/28/17 19:49 - Notes Notes: GENERAL: Patient appears intoxicated, slurring some of his words, slightly disheveled appearing. HEAD: Normocephalic. No signs of trauma. EYES: Pupils equal, round, and reactive to light. Extraocular movements intact. ENT: Oral mucosa moist, tongue midline. [Nares patent, no nasal septal hematoma , TM's intact.] NECK: Full range of motion. Supple. Trachea midline. LUNGS: Clear to auscultation bilaterally, no wheezes, rales, or rhonchi. No respiratory distress. HEART: Regular rate and rhythm. No murmur ABDOMEN: Soft, non-tender. Non-distended. Bowel sounds present in all 4 quadrants. EXTREMITIES: No edema, normal radial and dorsalis pedis pulses bilaterally. No cyanosis. BACK: no cervical, thoracic, lumbar midline tenderness. No saddle anesthesia, normal distal neurovascular exam. NEUROLOGICAL: Alert and oriented x3. Normal speech. [cranial nerves II through XII grossly intact]. Extremity strength is not equal, there is obvious right- sided deficit with weakness, and right lower extremity. When held up the leg quickly falls against gravity. Unremarkable neurological exam otherwise. PSYCH: Normal affect, mildly irritable but cooperative SKIN: Warm, dry, normal turgor. No rashes or lesions noted. Duc complexion. Course - Re-evaluation Re-evalutation: Evaluation consistent with some intoxication, reported seizure, Keppra loading was provided, will give folic acid and thiamine as well. Laboratory workup generally unremarkable except for mildly elevated liver functioning consistent with alcohol abuse and elevated alcohol level at 245. CT of the head and neck performed because of head injury with alcohol, these are both negative. Evaluation generally unremarkable and expected except for right sided weakness. Could be Arturo Paralysis although patient insists multiple times and this has been present for [address] Johnson. Recommends admission to the hospital to see if paralysis clears up , potential MRI, and for alcoholic seizure. Patient states agreement with this plan. Discussed with hospitalist, patient will be admitted to telemetry. - Vital Signs Vital signs: Temp Pulse Resp BP Pulse Ox 98.0 F 115 H 15 141/90 H 95 09/28/17 19:49 09/28/17 19:49 09/28/17 22:01 09/28/17 22:01 09/28/17 22:01 - Laboratory Result Diagrams: 09/28/17 20:22 09/28/17 20:22 Laboratory results interpreted by me: 09/28/17 09/28/17 20:22 20:22 RDW 14.4 H BUN 4 L Glucose 112 H AST 118 H ALT 132 H Discharge - Discharge Clinical Impression: Alcohol abuse, Seizure, Seizure disorder, Right sided weakness Condition: Stable Disposition: ADMITTED INPATIENT Admitting Provider: Hospitalist Unit Admitted: Telemetry
[2017-09-28 21:13] LABS: ANION GAP 17 (5-19); CARBON DIOXIDE 22 mmol/L (22-30); CHLORIDE 104 mmol/L (98-107); POTASSIUM 4.5 mmol/L (3.6-5.0); SODIUM 143.1 mmol/L (137-145)
--- NOTE | 2017-09-28 22:00 | RADIOLOGY REPORT (SQ) ---
EXAM DESCRIPTION: CT HEAD WITHOUT COMPLETED DATE/TIME: 09/28/2017 9:33 pm REASON FOR STUDY: fall, head injury, ETOH COMPARISON: None. TECHNIQUE: Axial images acquired through the brain without intravenous contrast. Images reviewed wi th bone, brain and subdural windows. Images stored on PACS. All CT scanners at this facility use dose modulation, iterative reconstruction, and/or weight based d osing when appropriate to reduce radiation dose to as low as reasonably achievable (ALARA). [facility]: Dose Right [facility]: CareDose [facility]: Dose Right [facility]: Teradose 4D [facility]: Smart Lumeta RADIATION DOSE: CT Rad equipment meets quality standard of care and radiation dose reduction techniq ues were employed. CTDIvol: 50.0 mGy. DLP: 1081 mGy-cm. mGy. LIMITATIONS: None. FINDINGS: VENTRICLES: Normal size and contour. CEREBRUM: No masses. No hemorrhage. No midline shift. No evidence for acute infarction. Normal gra y/white matter differentiation. No areas of low density in the white matter. CEREBELLUM: No masses. No hemorrhage. No alteration of density. No evidence for acute infarction. EXTRAAXIAL SPACES: No fluid collections. No masses. ORBITS AND GLOBE: No intra- or extraconal masses. Normal contour of globe without masses. CALVARIUM: No fracture. PARANASAL SINUSES: Mild mucosal thickening. SOFT TISSUES: No mass or hematoma. OTHER: No other significant finding. IMPRESSION: No acute intracranial findings. EVIDENCE OF ACUTE STROKE: NO. COMMENT: Quality ID # [id number]: Final reports with documentation of one or more dose reduction techniques (e.g., Automated exposure control, adjustment of the mA and/or kV according to patient size, use of iterative reconstruction technique) TECHNICAL DOCUMENTATION: JOB ID: [id number] [place]-72 2010 [employer]- All Rights Reserved Reading location - IP/workstation name: [email or web address]
--- NOTE | 2017-09-28 22:03 | RADIOLOGY REPORT (SQ) ---
EXAM DESCRIPTION: CT CERVICAL SPINE WITHOUT COMPLETED DATE/TIME: 09/28/2017 9:33 pm REASON FOR STUDY: fall, head injury, ETOH COMPARISON: None. TECHNIQUE: Axial images acquired through the cervical spine without intravenous contrast. Images re viewed with lung, soft tissue and bone windows. Reconstructed coronal and sagittal MPR images review ed. Images stored on PACS. All CT scanners at this facility use dose modulation, iterative reconstruction, and/or weight based d osing when appropriate to reduce radiation dose to as low as reasonably achievable (ALARA). [facility]: Dose Right [facility]: CareDose [facility]: Dose Right [facility]: Teradose 4D [facility]: Smart [facility] RADIATION DOSE: CT Rad equipment meets quality standard of care and radiation dose reduction techniq ues were employed. CTDIvol: 24.8 mGy. DLP: 678 mGy-cm. mGy. LIMITATIONS: None. FINDINGS: ALIGNMENT: Anatomic. MINERALIZATION: Normal. VERTEBRAL BODIES: No fractures or dislocation. DISCS: No significant disc disease. FACETS, LATERAL MASSES, POSTERIOR ELEMENTS: No fractures. No dislocation. No acute findings. HARDWARE: None in the spine. VISUALIZED RIBS: No fractures. LUNG APICES AND SOFT TISSUES: No significant or acute findings. OTHER: No other significant finding. IMPRESSION: NO ACUTE FINDINGS IN THE CERVICAL SPINE. TECHNICAL DOCUMENTATION: JOB ID: [id number] [place]-72 Quality ID # [id number]: Final reports with documentation of one or more dose reduction techniques (e.g., Au tomated exposure control, adjustment of the mA and/or kV according to patient size, use of iterative reconstruction technique) 2010 [employer]- All Rights Reserved Reading location - IP/workstation name: [email or web address]
[2017-09-28] MEDS ORDERED: METOCLOPRAMIDE HCL INJ/PF 10 MG/2 ML SDV IV ONE (22:13)
[2017-09-28] MEDS ORDERED: DIPHENHYDRAMINE HCL 50 MG/ML VIAL IV ONE (22:14)
[2017-09-29] MEDS ORDERED: THIAMINE HCL 100 MG, FOLIC ACID 1 MG in NORMAL SALINE 250 ML IV ONE (00:45)
[2017-09-29] MEDS ORDERED: MAG HYDROX/AL HYDROX/SIMETH SUSP 30 ML UDCUP PO PRN (00:47)
[2017-09-29] MEDS ORDERED: ACETAMINOPHEN 650 MG SUPP.RECT PR PRN (00:47)
[2017-09-29] MEDS ORDERED: PROMETHAZINE HCL INJ 25 MG/1 ML VIAL IV PRN (00:47)
[2017-09-29 01:17] LABS: INTERNATIONAL RATION (INR) 0.88; PROTHROMBIN TIME 12.4 SEC (11.4-15.4)
[2017-09-29] MEDS ORDERED: FOLIC ACID INJ 5 MG/1 ML 10 ML VIAL ONE (01:18)
[2017-09-29] MEDS ORDERED: THIAMINE HCL INJ 200 MG/2 ML VIAL ONE (01:18)
--- NOTE | 2017-09-29 01:25 | PDOC H&P ---
History of Present Illness Admission Date/PCP: 09/29/17 00:33 Boy Ramirez Patient complains of: Seizure History of Present Illness: SHANIKA GODINEZ is a 52 year old male comes emergency department for chief complaint of seizure. Patient is homeless, with history of alcohol dependence. Tells me that he has been drinking since 4 PM when suddenly he lost consciousness and fell to the floor during his back of the head, unknown the kind of seizure, it was witnessed. It lasted approximately 2 minutes, he has acute alcohol intoxication and is unclear if he was post ictal. Tells me that he has approximately one seizure a week. Last seizure 2 or 3 days ago. He reports a headache. He also reports that for the past 2 weeks he has been having trouble moving and feeling his right arm/hand and his right leg/foot, tells me that has been getting worse over time, has problems grabbing things, and parastasis has been getting worse. CT of the head in the ED negative. So far denies other neurological symptomatology. Denies any similar symptoms in the past. It was felt in the ED that this could be Arturo's paralysis. He denies fever, vomiting, other locations of pain. He is noncompliant with his medications Has several admissions to the psychiatric unit. In the ED he was loaded with Keppra and was felt the patient is to be admitted for workup of his right-sided weakness. Past Medical History Cardiac Medical History: Reports: Atrial Fibrillation, Hyperlipidema, Hypertension Pulmonary Medical History: Denies: Tuberculosis Neurological Medical History: Reports: Seizures Psychiatric Medical History: Reports: Alcohol Dependency, Depression, Tobacco Dependency Past Surgical History Past Surgical History: Reports: None Social History Smoking Status: Current Every Day Smoker - Smokes 1 pack per day Frequency of Alcohol Use: Heavy - Patient drinks every day for the last 10 years Hx Recreational Drug Use: No Family History Family History: Reviewed & Not Pertinent, Other - both his mother and father had KS's in thier 40's Parental Family History Reviewed: No Children Family History Reviewed: No Sibling(s) Family History Reviewed.: No Medication/Allergy Home Medications: Amlodipine Besylate 5 mg PO DAILY 07/04/17 Amlodipine Besylate [Norvasc 5 mg Tablet] 5 mg PO DAILY #30 tablet 08/02/17 Amlodipine Besylate 5 mg PO DAILY #30 tab 08/23/17 Levetiracetam [Keppra 500 mg Tablet] 500 mg PO Q12 #60 tablet 08/23/17 Allergies/Adverse Reactions: No Known Allergies Allergy (Verified 09/28/17 19:44) Review of Systems Review of Systems: As reported in the HPI, all others negative Physical Exam Vital Signs: Temp Pulse Resp BP Pulse Ox 98.0 F 115 H 15 141/90 H 95 09/28/17 19:49 09/28/17 19:49 09/28/17 22:01 09/28/17 22:01 09/28/17 22:01 Additional comments: General appearance: Disheveled, bad odor, drunk, alert and cooperative, and appears to be in no acute distress Head: Normocephalic Eyes: PEERL, EOMI, vision is grossly intact. Ears: External auditory canal and tympanic membranes clear, hearing grossly intact. Nose: No nasal discharge. Throat: Oral cavity and pharynx normal. No inflammation, swelling, exudate or lesions. Neck: Neck supple, nontender without lymphadenopathy, masses or thyromegaly. Cardiac: Normal S1 and S2. No S3, S4 or murmurs. Rhythm is regular. There is no peripheral edema, cyanosis or pallor. Extremities are warm and well perfused. Capillary refill is less than 2 seconds. No carotid bruits. Lungs: Clear to auscultation and percussion without rales, rhonchi, wheezing or diminished breath sounds. Not using accessory muscles. Abdomen: Positive bowel sounds. Soft. Nondistended, nontender. No guarding or rebound. No masses. No hepatosplenomegaly Extremities: No significant deformity or joint abnormality. No edema. Peripheral pulses intact. No varicosities. Neurological: Cranial nerves II through XII grossly intact. Strength and sensation decreased in right upper and right lower extremity. Skin: Skin normal color, texture and turgor with no lesions or eruptions, warm and dry. Psychiatric: The mental examination revealed the patient was oriented to person , place, partially in time. Has hard time remembering things, is drunk. Results Laboratory Results: 09/28/17 09/28/17 09/28/17 20:15 20:22 20:22 WBC 8.4 Hgb 16.8 Hct 48.4 Plt Count 247 Sodium 143.1 Potassium 4.5 Anion Gap 17 BUN 4 L Creatinine 0.67 Glucose 112 H Calcium 9.8 Magnesium 2.3 Total Bilirubin 0.3 AST 118 H ALT 132 H Alkaline Phosphatase 51 Total Protein 8.0 Albumin 4.8 Urine Opiates Screen NEGATIVE Urine Methadone Screen NEGATIVE Ur Barbiturates Screen NEGATIVE Ur Phencyclidine Scrn NEGATIVE Ur Amphetamines Screen NEGATIVE U Benzodiazepines Scrn NEGATIVE Urine Cocaine Screen NEGATIVE U Marijuana (THC) Screen NEGATIVE Serum Alcohol 245 Impressions: Cervical Spine CT 09/28/17 21:08 IMPRESSION: NO ACUTE FINDINGS IN THE CERVICAL SPINE. Head CT 09/28/17 21:08 IMPRESSION: No acute intracranial findings. EVIDENCE OF ACUTE STROKE: NO. Assessment & Plan - Diagnosis (1) Right sided weakness Is this a current diagnosis for this admission?: Yes Plan: Patient was noted in the emergency department with right upper and right lower extremity weakness, patient tells me that has been going on for the last 2 weeks and weakness and paresthesias getting worse. It was felt that can be secondary to Arturo's paralysis however we cannot rule out acute CVA. MRI of the brain has been placed. Telemetry monitoring. Neurochecks. CT of the head negative. Do not have high suspicion for stroke. Possible Arturo's paralysis. (2) Alcohol abuse Is this a current diagnosis for this admission?: Yes Plan: Patient comes with acute alcohol intoxication, patient has alcohol dependence for the last 10 years. Likely patient can go into alcohol withdrawal or DTs. I am giving the patient IV fluids. Banana bag. From tomorrow p.o. multivitamins, thiamine and folic acid. IV Ativan as needed for alcohol withdrawal. Serum alcohol levels 245 (3) Seizure disorder Is this a current diagnosis for this admission?: Yes Plan: She comes status post seizure episode. Patient is having seizures since he is on his 20 units. Patient is on Keppra at home but noncompliant with the medication. We will send Keppra levels. I will load him with IV Keppra and will continue with his home p.o. Keppra. Seizure precautions. IV Ativan as needed for seizures. (4) Depression Is this a current diagnosis for this admission?: Yes Plan: Seen in multiple occasions by psychiatric, not taking any medication. (6) Transaminitis Is this a current diagnosis for this admission?: Yes Plan: Likely secondary to his history of alcohol abuse. Will repeat LFTs in the morning. - Time Time Spent: 30 to 50 Minutes
[2017-09-29] MEDS: LORAZEPAM INJ 2 MG/1 ML VIAL IV PRN ×7 (04:19→22:47)
[2017-09-29] MEDS: NORMAL SALINE 1000 ML 1,000 ML IV PRN (06:37)
[2017-09-29] MEDS: FOLIC ACID 1 MG TABLET PO SCH (09:21)
[2017-09-29] MEDS: MULTIVITAMIN TABLET PO SCH (09:21)
[2017-09-29] MEDS: THIAMINE HCL 100 MG TABLET PO SCH (09:21)
[2017-09-29] MEDS: LEVETIRACETAM 1000 MG/NACL-ISO 1,000 MG/100 ML RTUPB IV SCH ×2 (09:22→21:39)
--- NOTE | 2017-09-29 11:27 | Progress Note ---
Provider Note Provider Note: SHAINKA GODINEZ is a 52 year old male comes emergency department for chief complaint of seizure. Patient is homeless, with history of alcohol dependence. Patient is noncompliant with his seizure medication namely Keppra. Patient also complains of 2 weeks history of left-sided weakness. Admission patient was found to be intoxicated. Accept and will be the primary attending physician for this patient.
[2017-09-29] MEDS: NORMAL SALINE 1000 ML 1,000 ML with POTASSIUM CHLORIDE 20 MEQ, MAGNESIUM SULFATE 8 MEQ,... IV SCH ×5 (16:53)
--- NOTE | 2017-09-29 20:21 | RADIOLOGY REPORT (SQ) ---
EXAM DESCRIPTION: MRI HEAD WITHOUT COMPLETED DATE/TIME: 09/29/2017 6:08 pm REASON FOR STUDY: R hemiparesis COMPARISON: None. TECHNIQUE: Multiplanar imaging includes non-contrasted T1, T2, FLAIR, and diffusion with ADC map seq uences. Images stored on PACS. LIMITATIONS: None. FINDINGS: ANATOMY: No anomalies. Normal vascular flow voids. Pituitary fossa normal. CSF SPACES: Normal in size and contour. No hemorrhage. CEREBRUM: Sulci and gyri normal in size and contour. Normal white matter signal on FLAIR imaging. No evidence of hemorrhage, mass, or extraaxial fluid collection. POSTERIOR FOSSA: No signal alteration. No hemorrhage. No edema, masses or mass effect. Internal bridger tory canals, cerebello-pontine angles, mastoids normal. DIFFUSION IMAGING: Negative for acute or sub-acute infarction. ORBITS: No masses. Globes normal. PARANASAL SINUSES: No fluid levels. Mucosa normal. OTHER: No other significant finding. IMPRESSION: Age-appropriate exam. Negative for acute or sub-acute infarction. EVIDENCE OF ACUTE STROKE: NO. TECHNICAL DOCUMENTATION: JOB ID: [id number] [place]-72 2010 [employer]- All Rights Reserved Reading location - IP/workstation name: [email or web address]
[2017-09-29] MEDS ORDERED: NICOTINE 21 MG/24 HR PATCH.TD24 TD ONE (21:15)
[2017-09-30] MEDS: LORAZEPAM INJ 2 MG/1 ML VIAL IV PRN ×5 (02:06→21:25)
[2017-09-30] MEDS: NICOTINE 21 MG/24 HR PATCH.TD24 TD SCH ×2 (02:17→21:25)
[2017-09-30 04:51] LABS: HEMATOCRIT 43.7 % (37.9-51.0); MEAN CORPUSCULAR HGB CONC 34.4 g/dL (32.0-36.0); MEAN CORPUSCULAR VOLUME 93 fl (80-97); PLATELET COUNT 147 10^3/uL (150-450); RED CELL DISTRIBUTION WIDTH 14.2 % (11.5-14.0); WHITE BLOOD COUNT 6.2 10^3/uL (4.0-10.5)
[2017-09-30 05:15] LABS: ALANINE AMINOTRANSFERASE 102 U/L (21-72); ALBUMIN 3.5 g/dL (3.5-5.0); ALKALINE PHOSPHATASE 39 U/L (38-126); ANION GAP 10 (5-19); ASPARTATE AMINO TRANSFERASE 77 U/L (17-59); BILIRUBIN,DIRECT 0.3 mg/dL (0.0-0.4); BILIRUBIN,TOTAL 0.9 mg/dL (0.2-1.3); BLOOD UREA NITROGEN 10 mg/dL (7-20); CALCIUM 8.8 mg/dL (8.4-10.2); CARBON DIOXIDE 22 mmol/L (22-30); CHLORIDE 108 mmol/L (98-107); GLUCOSE 83 mg/dL (75-110); POTASSIUM 4.1 mmol/L (3.6-5.0); SODIUM 140.2 mmol/L (137-145); TOTAL PROTEIN 6.2 g/dL (6.3-8.2)
[2017-09-30] MEDS: NORMAL SALINE 1000 ML 1,000 ML IV PRN (09:25)
[2017-09-30] MEDS: LEVETIRACETAM 1000 MG/NACL-ISO 1,000 MG/100 ML RTUPB IV SCH (09:25)
[2017-09-30] MEDS: MULTIVITAMIN TABLET PO SCH (09:25)
[2017-09-30] MEDS: THIAMINE HCL 100 MG TABLET PO SCH (09:25)
[2017-09-30] MEDS: FOLIC ACID 1 MG TABLET PO SCH (09:25)
--- NOTE | 2017-09-30 13:39 | PDOC PROGRESS REPORT ---
Subjective Progress Note for:: 09/30/17 Subjective:: This is 52 years old homeless male patient, admitted with recurrent seizure. Patient is a known case of long-standing alcoholism. Patient is noncompliant with his seizure medication. Patient also presented with 2 weeks history of right upper and lower to weakness. CT head and MRI of the brain unrevealing. I seen patient resting in bed. He is awake alert. He reports feeling better. To prevent alcohol withdrawal on top of Ativan added for him diazepam 10 mg p.o. every 6 hours as needed Reason For Visit: RIGHT SIDE WEAKNESS Physical Exam Vital Signs: Temp Pulse Resp BP Pulse Ox 97.6 F 94 18 160/95 H 97 09/30/17 07:29 09/30/17 07:29 09/30/17 07:29 09/30/17 07:29 09/30/17 07:29 Intake & Output 09/29/17 09/30/17 10/01/17 06:59 06:59 06:59 Intake Total 3 2511 Balance 3 2511 Weight 94.9 kg 95.4 kg General appearance: PRESENT: no acute distress, disheveled Head exam: PRESENT: atraumatic Eye exam: PRESENT: conjunctiva pink Neck exam: ABSENT: carotid bruit, JVD, lymphadenopathy, thyromegaly Respiratory exam: PRESENT: clear to auscultation cristina. ABSENT: rales, rhonchi, wheezes Cardiovascular exam: PRESENT: RRR. ABSENT: diastolic murmur, rubs, systolic murmur GI/Abdominal exam: PRESENT: normal bowel sounds, soft. ABSENT: distended, guarding, mass, organolmegaly, rebound, tenderness Extremities exam: PRESENT: full ROM. ABSENT: calf tenderness, clubbing, pedal edema Neurological exam: PRESENT: alert, other - He has right upper and lower extremity weakness. His power is 4/5 in both upper and lower extremity Results Laboratory Results: 09/30/17 04:16 09/30/17 04:16 09/30/17 09/30/17 04:16 04:16 WBC 6.2 RBC 4.70 Hgb 15.0 Hct 43.7 MCV 93 MCH 32.0 MCHC 34.4 RDW 14.2 H Plt Count 147 L Sodium 140.2 Potassium 4.1 Chloride 108 H Carbon Dioxide 22 Anion Gap 10 BUN 10 Creatinine 0.68 Est GFR ( Amer) > 60 Est GFR (Non-Af Amer) > 60 Glucose 83 Calcium 8.8 Magnesium 2.3 Total Bilirubin 0.9 AST 77 H ALT 102 H Alkaline Phosphatase 39 Total Protein 6.2 L Albumin 3.5 Impressions: Cervical Spine CT 09/28/17 21:08 IMPRESSION: NO ACUTE FINDINGS IN THE CERVICAL SPINE. Head CT 09/28/17 21:08 IMPRESSION: No acute intracranial findings. EVIDENCE OF ACUTE STROKE: NO. Head MRI 09/29/17 00:00 IMPRESSION: Age-appropriate exam. Negative for acute or sub-acute infarction. EVIDENCE OF ACUTE STROKE: NO. Assessment & Plan - Diagnosis (1) Recurrent seizures Is this a current diagnosis for this admission?: Yes Plan: Patient has been started on IV Keppra thousand milligrams twice a day. I will switch him to p.o. (2) Alcohol abuse Is this a current diagnosis for this admission?: Yes Plan: Patient advised to remain sober. (3) Homelessness Is this a current diagnosis for this admission?: Yes Plan: I will discuss with strategic planner for possible filter placement.
[2017-09-30] MEDS: DIAZEPAM 5 MG TABLET PO SCH ×3 (14:29→23:52)
[2017-09-30] MEDS: NORMAL SALINE 1000 ML 1,000 ML with POTASSIUM CHLORIDE 20 MEQ, MAGNESIUM SULFATE 8 MEQ,... IV SCH ×5 (18:52)
[2017-09-30] MEDS: LEVETIRACETAM 500 MG TABLET PO SCH (21:25)
[2017-10-01] MEDS: DIAZEPAM 5 MG TABLET PO SCH ×4 (06:29→23:24)
[2017-10-01] MEDS: NORMAL SALINE 1000 ML 1,000 ML IV PRN (06:30)
[2017-10-01] MEDS: MULTIVITAMIN TABLET PO SCH (09:45)
[2017-10-01] MEDS: LEVETIRACETAM 500 MG TABLET PO SCH ×2 (09:45→21:48)
[2017-10-01] MEDS: THIAMINE HCL 100 MG TABLET PO SCH (09:45)
[2017-10-01] MEDS: FOLIC ACID 1 MG TABLET PO SCH (09:45)
--- NOTE | 2017-10-01 12:56 | PDOC PROGRESS REPORT ---
Subjective Progress Note for:: 10/01/17 Subjective:: I seen patient awake alert and oriented. He is eating well and tolerates well. Still has right-sided upper and lower extremity weakness. Patient scheduled to have MRI of the cervical spine with and without contrast. wedding planner consulted for possible fdc placement. Reason For Visit: RIGHT SIDE WEAKNESS Physical Exam Vital Signs: Temp Pulse Resp BP Pulse Ox 97.7 F 83 16 148/96 H 100 10/01/17 07:20 10/01/17 07:20 10/01/17 07:20 10/01/17 07:20 10/01/17 07:20 Intake & Output 09/30/17 10/01/17 10/02/17 06:59 06:59 06:59 Intake Total 2511 4113 237 Output Total 2825 Balance 2511 1288 237 Weight 95.4 kg 92.3 kg Results Laboratory Results: 09/30/17 04:16 09/30/17 04:16 Impressions: Cervical Spine CT 09/28/17 21:08 IMPRESSION: NO ACUTE FINDINGS IN THE CERVICAL SPINE. Head CT 09/28/17 21:08 IMPRESSION: No acute intracranial findings. EVIDENCE OF ACUTE STROKE: NO. Head MRI 09/29/17 00:00 IMPRESSION: Age-appropriate exam. Negative for acute or sub-acute infarction. EVIDENCE OF ACUTE STROKE: NO. Assessment & Plan - Diagnosis (1) Recurrent seizures Is this a current diagnosis for this admission?: Yes Plan: No seizure activity witnessed since admission to the hospital (2) Alcohol abuse Is this a current diagnosis for this admission?: Yes Plan: Patient advised to remain sober. (3) Homelessness Is this a current diagnosis for this admission?: Yes Plan: I will discuss with operations planner for possible filter placement. (4) Right sided weakness Is this a current diagnosis for this admission?: Yes Plan: MRI of the brain and CT scan are negative for acute or old stroke. Patient scheduled to have MRI of the cervical spine with and without contrast. - Time Time Spent with patient: 25-34 minutes
--- NOTE | 2017-10-01 14:48 | RADIOLOGY REPORT (SQ) ---
EXAM DESCRIPTION: MRI CERVICAL SPINE COMBO COMPLETED DATE/TIME: 10/01/2017 11:47 am REASON FOR STUDY: R sided weakness COMPARISON: None. TECHNIQUE: Sagittal and Axial imaging includes T1, T2, STIR and gradient echo sequences. T1 post gwen olinium sequences. CONTRAST TYPE AND DOSE: 15 mL Prohance. RENAL FUNCTION: GFR > 60. LIMITATIONS: None. FINDINGS: ALIGNMENT: Normal. VERTEBRAE: Intact. BONE MARROW: Normal. No marrow replacement or reactive changes. DISCS: Normal. No significant abnormal signal or loss of height. HARDWARE: None in the spine. CORD AND BASE OF BRAIN: Normal in size and signal intensity. SOFT TISSUES: No soft tissue masses. C1-C2: No significant spinal stenosis. C2-C3: No significant spinal stenosis or exit foraminal stenosis. C3-C4: No significant spinal stenosis or exit foraminal stenosis. C4-C5: No significant spinal stenosis or exit foraminal stenosis. C5-C6: No significant spinal stenosis or exit foraminal stenosis. C6-C7: No significant spinal stenosis or exit foraminal stenosis. C7-T1: No significant spinal stenosis or exit foraminal stenosis. UPPER THORACIC: Incompletely imaged. No significant spinal stenosis or exit foraminal stenosis. ENHANCEMENT: No abnormal enhancement. OTHER: No other significant finding. IMPRESSION: NORMAL MRI CERVICAL SPINE. COMMENT: None. TECHNICAL DOCUMENTATION: JOB ID: [id number] [employer]- All Rights Reserved Reading location - IP/workstation name: [email or web address]
[2017-10-01] MEDS: NICOTINE 21 MG/24 HR PATCH.TD24 TD SCH (21:50)
[2017-10-02] MEDS: DIAZEPAM 5 MG TABLET PO SCH ×4 (06:39→23:34)
[2017-10-02] MEDS: THIAMINE HCL 100 MG TABLET PO SCH (10:53)
[2017-10-02] MEDS: FOLIC ACID 1 MG TABLET PO SCH (10:53)
[2017-10-02] MEDS: MULTIVITAMIN TABLET PO SCH (10:53)
[2017-10-02] MEDS: LEVETIRACETAM 500 MG TABLET PO SCH ×2 (10:53→21:16)
--- NOTE | 2017-10-02 18:36 | PDOC PROGRESS REPORT ---
Subjective Progress Note for:: 10/02/17 Subjective:: This is 52 years old alcoholic patient admitted with recurrent seizure alcohol intoxication and right-sided weakness. His seizures controlled with Keppra thousand milligrams p.o. twice daily. For his right-sided weakness he has CT.,' s MRI brain and MRI of the cervical spine and all are negative. Currently patient is stable. Reason For Visit: RIGHT SIDE WEAKNESS Physical Exam Vital Signs: Temp Pulse Resp BP Pulse Ox 98.3 F 100 16 150/98 H 100 10/02/17 16:00 10/02/17 16:00 10/02/17 16:00 10/02/17 16:00 10/02/17 16:00 Intake & Output 10/01/17 10/02/17 10/03/17 06:59 06:59 06:59 Intake Total 4113 2177 1565 Output Total 2825 0 Balance 1288 2177 1565 Weight 92.3 kg 93.3 kg Results Laboratory Results: 09/30/17 04:16 09/30/17 04:16 Impressions: Cervical Spine CT 09/28/17 21:08 IMPRESSION: NO ACUTE FINDINGS IN THE CERVICAL SPINE. Head CT 09/28/17 21:08 IMPRESSION: No acute intracranial findings. EVIDENCE OF ACUTE STROKE: NO. Head MRI 09/29/17 00:00 IMPRESSION: Age-appropriate exam. Negative for acute or sub-acute infarction. EVIDENCE OF ACUTE STROKE: NO. Cervical Spine MRI 10/01/17 00:00 IMPRESSION: NORMAL MRI CERVICAL SPINE. Assessment & Plan - Diagnosis (1) Recurrent seizures Is this a current diagnosis for this admission?: Yes Plan: No seizure activity witnessed after admission (2) Alcohol abuse Is this a current diagnosis for this admission?: Yes Plan: Patient advised to remain sober. (3) Homelessness Is this a current diagnosis for this admission?: Yes Plan: I will discuss with financial planner for possible filter placement. (4) Right sided weakness Is this a current diagnosis for this admission?: Yes Plan: MRI of the brain and CT scan are negative for acute or old stroke. Patient scheduled to have MRI of the cervical spine with and without contrast.
[2017-10-02] MEDS: NICOTINE 21 MG/24 HR PATCH.TD24 TD SCH (21:18)
[2017-10-03] MEDS: DIAZEPAM 5 MG TABLET PO SCH (06:09)
--- NOTE | 2017-10-03 07:34 | PDOC DISCHARGE SUMMARY ---
General - Admit/Disc Date/PCP Admission Date/Primary Care Provider: 09/29/17 00:33 Discharge Date: 10/03/17 - Discharge Diagnosis (1) Recurrent seizures Is this a current diagnosis for this admission?: Yes (2) Alcohol abuse Is this a current diagnosis for this admission?: Yes (3) Homelessness Is this a current diagnosis for this admission?: Yes (4) Right sided weakness Is this a current diagnosis for this admission?: Yes - Additional Information Home Medications: Amlodipine Besylate [Norvasc 5 mg Tablet] 5 mg PO DAILY 09/29/17 Levetiracetam [Keppra 500 mg Tablet] 500 mg PO Q12 09/29/17 History of Present Illness History of Present Illness: SHANIKA GODINEZ is a 52 year old male comes emergency department for chief complaint of seizure. Patient is homeless, with history of alcohol dependence. Tells me that he has been drinking since 4 PM when suddenly he lost consciousness and fell to the floor during his back of the head, unknown the kind of seizure, it was witnessed. It lasted approximately 2 minutes, he has acute alcohol intoxication and is unclear if he was post ictal. Tells me that he has approximately one seizure a week. Last seizure 2 or 3 days ago. He reports a headache. He also reports that for the past 2 weeks he has been having trouble moving and feeling his right arm/hand and his right leg/foot, tells me that has been getting worse over time, has problems grabbing things, and parastasis has been getting worse. CT of the head in the ED negative. So far denies other neurological symptomatology. Denies any similar symptoms in the past. It was felt in the ED that this could be Arturo's paralysis. He denies fever, vomiting, other locations of pain. He is noncompliant with his medications Has several admissions to the psychiatric unit. In the ED he was loaded with Keppra and was felt the patient is to be admitted for workup of his right-sided weakness. Hospital Course Hospital Course: This is 52 years old alcoholic patient admitted with recurrent seizure alcohol intoxication and right-sided weakness. His seizures controlled with Keppra thousand milligrams p.o. twice daily. For his right-sided weakness he has CT of the head, MRI of the brain and MRI of the cervical spine and all are negative. Currently patient is stable. No seizure witnessed after patient admitted to the hospital. I have a long discussion with the patient noncompliance with his medication and his alcohol dependency. I counseled and encouraged him to quit alcohol and smoking and he voiced agreement. Physical Exam Vital Signs: Temp Pulse Resp BP Pulse Ox 97.9 F 72 14 121/76 98 10/03/17 03:50 10/03/17 03:50 10/03/17 03:50 10/03/17 03:50 10/03/17 03:50 Intake & Output 10/02/17 10/03/17 10/04/17 06:59 06:59 06:59 Intake Total 2177 2202 Output Total 0 Balance 2177 2202 Weight 93.3 kg 94.1 kg General appearance: PRESENT: no acute distress, well-developed, well-nourished Head exam: PRESENT: atraumatic, normocephalic Eye exam: PRESENT: conjunctiva pink, EOMI, PERRLA. ABSENT: scleral icterus Ear exam: PRESENT: normal external ear exam Mouth exam: PRESENT: moist, tongue midline Neck exam: ABSENT: carotid bruit, JVD, lymphadenopathy, thyromegaly Respiratory exam: PRESENT: clear to auscultation cristina. ABSENT: rales, rhonchi, wheezes Cardiovascular exam: PRESENT: RRR. ABSENT: diastolic murmur, rubs, systolic murmur Pulses: PRESENT: normal dorsalis pedis pul Vascular exam: PRESENT: normal capillary refill GI/Abdominal exam: PRESENT: normal bowel sounds, soft. ABSENT: distended, guarding, mass, organolmegaly, rebound, tenderness Rectal exam: PRESENT: deferred Extremities exam: PRESENT: full ROM. ABSENT: calf tenderness, clubbing, pedal edema Neurological exam: PRESENT: alert, awake, oriented to person, oriented to place , oriented to time, oriented to situation, CN II-XII grossly intact. ABSENT: motor sensory deficit Psychiatric exam: PRESENT: appropriate affect, normal mood. ABSENT: homicidal ideation, suicidal ideation Skin exam: PRESENT: dry, intact, warm. ABSENT: cyanosis, rash Results Laboratory Results: 09/30/17 04:16 09/30/17 04:16 Impressions: Cervical Spine CT 09/28/17 21:08 IMPRESSION: NO ACUTE FINDINGS IN THE CERVICAL SPINE. Head CT 09/28/17 21:08 IMPRESSION: No acute intracranial findings. EVIDENCE OF ACUTE STROKE: NO. Head MRI 09/29/17 00:00 IMPRESSION: Age-appropriate exam. Negative for acute or sub-acute infarction. EVIDENCE OF ACUTE STROKE: NO. Cervical Spine MRI 10/01/17 00:00 IMPRESSION: NORMAL MRI CERVICAL SPINE. Qualifiers - * PATIENT BEING DISCHARGED WITH ANY OF THE FOLLOWING DIAGNOSIS: No
[2017-10-03 08:22] VITALS: BP 150/98
[2017-10-03] MEDS ORDERED: LEVETIRACETAM 500 MG TABLET PO ONE (08:30)
[2017-10-03] MEDS ORDERED: AMLODIPINE BESYLATE 5 MG TABLET PO SCH (10:00)
== END 2017-10-03 08:55 | disposition home or self-care (01) ==
LOC: ER 19:44 → EH 09-29 00:33 → INTOOBSV 09-29 00:33 → 3N 09-29 03:35
PROVIDERS: ADMIT Internal Medicine; ATTEND Internal Medicine
DX: G40.909 Epilepsy, unspecified, not intractable, without status epilepticus (principal); F10.229 Alcohol dependence with intoxication, unspecified; Y90.8 Blood alcohol level of 240 mg/100 ml or more; Z59.0 Homelessness; R53.1 Weakness; R51 Headache; W19.XXXA Unspecified fall, initial encounter; F17.210 Nicotine dependence, cigarettes, uncomplicated; I10 Essential (primary) hypertension; R20.2 Paresthesia of skin; F32.9 Major depressive disorder, single episode, unspecified; R74.0 Nonspecific elevation of levels of transaminase and lactic acid dehydrogenase [LDH]; I25.2 Old myocardial infarction; Z91.14 Patient's other noncompliance with medication regimen
CPT/HCPCS: 99285; 96375; 96365; 36415 ×3; 80177; 82962; 80307 ×2; 83735 ×2; 85025; 85027; 85610; 85730; 80053 ×2; 81001; 72156; 70551; 70450; 72125; G0378 ×4; A9576; J1200; J3475 ×2; J2765; J2060 ×2; J3480 ×2; J2550; J3411 ×2; J7030 ×3; J3490 ×2; J1953 ×3

== ENCOUNTER 2017-10-06 20:14 | Emergency (ER) | payer SELFPAY ==
--- NOTE | 2017-10-06 20:47 | RADIOLOGY REPORT (SQ) ---
EXAM DESCRIPTION: CT HEAD WITHOUT COMPLETED DATE/TIME: 10/06/2017 8:33 pm REASON FOR STUDY: fall/ confusion COMPARISON: 09/29/2017 TECHNIQUE: Axial images acquired through the brain without intravenous contrast. Images reviewed wi th bone, brain and subdural windows. Images stored on PACS. All CT scanners at this facility use dose modulation, iterative reconstruction, and/or weight based d osing when appropriate to reduce radiation dose to as low as reasonably achievable (ALARA). [facility]: Dose Right [facility]: CareDose [facility]: Dose Right [facility]: Teradose 4D [facility]: Smart [employer] RADIATION DOSE: CT Rad equipment meets quality standard of care and radiation dose reduction techniq ues were employed. CTDIvol: 55.2 mGy. DLP: 1056 mGy-cm. mGy. LIMITATIONS: None. FINDINGS: VENTRICLES: Normal size and contour. CEREBRUM: No masses. No hemorrhage. No midline shift. No evidence for acute infarction. Normal gra y/white matter differentiation. No areas of low density in the white matter. CEREBELLUM: No masses. No hemorrhage. No alteration of density. No evidence for acute infarction. EXTRAAXIAL SPACES: No fluid collections. No masses. ORBITS AND GLOBE: No intra- or extraconal masses. Normal contour of globe without masses. CALVARIUM: No fracture. PARANASAL SINUSES: No fluid. Mild mucosal thickening. SOFT TISSUES: No mass or hematoma. OTHER: No other significant finding. IMPRESSION: No acute intracranial findings. EVIDENCE OF ACUTE STROKE: NO. COMMENT: Quality ID # [id number]: Final reports with documentation of one or more dose reduction techniques (e.g., Automated exposure control, adjustment of the mA and/or kV according to patient size, use of iterative reconstruction technique) TECHNICAL DOCUMENTATION: JOB ID: [id number] [place]-72 2010 [employer]- All Rights Reserved Reading location - IP/workstation name: [email or web address]
[2017-10-06 20:52] LABS: ABSOLUTE BASOPHILS # (AUTO) 0.1 10^3/uL (0.0-0.2); ABSOLUTE EOSINOPHILS # (AUTO) 0.2 10^3/uL (0.0-0.6); ABSOLUTE MONOCYTES (AUTO) 0.8 10^3/uL (0.1-1.4); ABSOLUTE NEUT (AUTO) 4.6 10^3/uL (1.7-8.2); BASOPHILS % (AUTO) 1.2 % (0-2); EOSINOPHILS % (AUTO) 3.1 % (0-6); HEMATOCRIT 44.5 % (37.9-51.0); HEMOGLOBIN 15.4 g/dL (13.5-17.0); LYMPHOCYTES % (AUTO) 25.6 % (13-45); MEAN CORPUSCULAR HGB CONC 34.6 g/dL (32.0-36.0); MEAN CORPUSCULAR VOLUME 92 fl (80-97); MONOCYTES % (AUTO) 10.6 % (3-13); PLATELET COUNT 244 10^3/uL (150-450); RED BLOOD COUNT 4.82 10^6/uL (4.35-5.55); SEGMENTED NEUTROPHILS % (AUTO) 59.5 % (42-78); TOTAL CELLS COUNTED % (AUTO) 100 %; WHITE BLOOD COUNT 7.7 10^3/uL (4.0-10.5)
--- NOTE | 2017-10-06 21:00 | ER Document Report ---
ED General - General Chief Complaint: Seizure Stated Complaint: POSSIBLE SEIZURE Time Seen by Provider: 10/06/17 20:28 Mode of Arrival: Wheelchair Information source: Patient Notes: Patient is a 52-year-old male who presents with chief complaint of seizure. Patient was dropped off in the front by his friend who reports that he had what appeared to be a grand mal seizure. Patient is alert and oriented upon my assessment. Patient reports that he has been off of his Keppra for at least 1 week. Patient reports that he cannot afford it. Patient reports that today he drinks 3 or 4 40 ounce beers prior to the onset of his seizure. Patient does report a headache, patient believes when he fell he struck his head. Patient has already been to CT. TRAVEL OUTSIDE OF THE [place] IN LAST 30 DAYS: No - Related Data Allergies/Adverse Reactions: No Known Allergies Allergy (Verified 10/08/17 23:28) Past Medical History - General Information source: Patient - Social History Smoking Status: Current Every Day Smoker Frequency of alcohol use: Heavy Drug Abuse: None Family History: Reviewed & Not Pertinent, Other - both his mother and father had PR's in thier 40's - Past Medical History Cardiac Medical History: Reports: Hx Atrial Fibrillation, Hx Hypercholesterolemia, Hx Hypertension Pulmonary Medical History: Denies: Hx Tuberculosis Neurological Medical History: Reports: Hx Seizures Renal/ Medical History: Denies: Hx Peritoneal Dialysis Psychiatric Medical History: Reports: Hx Depression - Immunizations Immunizations up to date: Yes Hx Diphtheria, Pertussis, Tetanus Vaccination: Yes Review of Systems - Review of Systems Constitutional: No symptoms reported EENT: No symptoms reported Cardiovascular: No symptoms reported Respiratory: No symptoms reported Gastrointestinal: No symptoms reported Genitourinary: No symptoms reported Male Genitourinary: No symptoms reported Musculoskeletal: No symptoms reported Skin: No symptoms reported Hematologic/Lymphatic: No symptoms reported Neurological/Psychological: See HPI Physical Exam - Vital signs Vitals: Pulse Ox 98 10/06/17 20:36 - Notes Notes: PHYSICAL EXAMINATION: GENERAL: Well-appearing, well-nourished and in no acute distress. HEAD: Atraumatic, normocephalic. EYES: Pupils equal round and reactive to light, extraocular movements intact, sclera anicteric, conjunctiva are normal. ENT: Nares patent, oropharynx clear without exudates. Moist mucous membranes. NECK: Normal range of motion, supple without lymphadenopathy LUNGS: Breath sounds clear to auscultation bilaterally and equal. No wheezes rales or rhonchi. HEART: Regular rate and rhythm without murmurs ABDOMEN: Soft, nontender, nondistended abdomen. No guarding, no rebound. No masses appreciated. Musculoskeletal: Normal range of motion, no pitting or edema. No cyanosis. NEUROLOGICAL: Cranial nerves grossly intact. Normal speech, normal gait. Altered sensation to right leg, patient reports this is been going on for several weeks. PSYCH: Normal mood, normal affect. SKIN: Warm, Dry, normal turgor, no rashes or lesions noted. Course - Re-evaluation Re-evalutation: Patient's workup today is unremarkable. Patient's physical examination is without abnormalities. CT head is negative for any acute findings. Patient is awake, alert, oriented and able to ambulate with a steady gait. Patient will be given a dose of his Keppra with a prescription to get his Keppra refilled. Patient encouraged to stop or at least decrease his alcohol intake as this lowers his seizure threshold. - Vital Signs Vital signs: Temp Pulse Resp BP Pulse Ox 16 138/89 H 95 10/06/17 21:02 10/06/17 21:02 10/06/17 21:02 - Laboratory Result Diagrams: 10/06/17 20:44 10/06/17 20:44 Laboratory results interpreted by me: 10/06/17 20:44 Sodium 147.3 H Chloride 110 H Carbon Dioxide 20 L ALT 102 H Discharge - Discharge Clinical Impression: Seizure Fall Qualifiers: Encounter type: initial encounter Qualified Code(s): W19.XXXA - Unspecified fall, initial encounter Condition: Stable Disposition: HOME, SELF-CARE Additional Instructions: Seizure, Known Epileptic You have had a seizure. Seizures may "break through" in an epileptic due to stress of infection or injury, a change in blood chemistry, or drug and alcohol use. Another common cause is failure to take medication as prescribed. Your doctor has evaluated your situation for the likely cause of this seizure. It is important that you follow his advice concerning any medication changes and follow-up care. Further testing of anti-seizure medication levels in your blood may be necessary. If you have a local intermodal truck driver's license, it's important that you DO NOT DRIVE until given permission by your physician. This seizure must be reported to the local intermodal truck driver 's license bureau. Call the doctor or return if seizures recur, or if new or unusual symptoms arise -- such as severe headache, confusion, excessive sleepiness, local weakness or numbness, neck stiffness, or fever. Please use the coupon so we have provided for you to get your prescriptions filled. Try to avoid alcohol as this lowers your seizure threshold. Prescriptions: Levetiracetam [Keppra 500 mg Tablet] 1,000 mg PO Q12 #120 tablet
[2017-10-06 21:10] VITALS: BP 138/89
[2017-10-06 21:11] LABS: ALANINE AMINOTRANSFERASE 102 U/L (21-72); ALBUMIN 4.4 g/dL (3.5-5.0); ALKALINE PHOSPHATASE 45 U/L (38-126); ANION GAP 17 (5-19); ASPARTATE AMINO TRANSFERASE 59 U/L (17-59); BILIRUBIN,DIRECT 0.3 mg/dL (0.0-0.4); BILIRUBIN,TOTAL 0.3 mg/dL (0.2-1.3); BLOOD UREA NITROGEN 10 mg/dL (7-20); CARBON DIOXIDE 20 mmol/L (22-30); CHLORIDE 110 mmol/L (98-107); GLUCOSE 97 mg/dL (75-110); POTASSIUM 4.3 mmol/L (3.6-5.0); SODIUM 147.3 mmol/L (137-145); TOTAL PROTEIN 7.1 g/dL (6.3-8.2)
[2017-10-06] MEDS ORDERED: LEVETIRACETAM 500 MG TABLET PO ONE (22:46)
== END 2017-10-06 23:10 | disposition home or self-care (01) ==
LOC: ER 20:14
DX: R56.9 Unspecified convulsions (principal); F17.200 Nicotine dependence, unspecified, uncomplicated; I48.91 Unspecified atrial fibrillation; E78.00 Pure hypercholesterolemia, unspecified; I10 Essential (primary) hypertension
CPT/HCPCS: 36415; 70450; 80053; 83735; 85025; 99284

== ENCOUNTER 2017-10-07 17:38 | Emergency (ER) | payer SELFPAY ==
--- NOTE | 2017-10-07 18:19 | ER Document Report ---
ED Medical Screen (RME) - General TRAVEL OUTSIDE OF THE [place] IN LAST 30 DAYS: No <GUNNAR NGUYỄN - Last Filed: 10/07/17 18:18> <STAR DO - Last Filed: 10/07/17 20:48> - General Chief Complaint: Probable Seizure Stated Complaint: POSSIBLE SEIZURE Time Seen by Provider: 10/07/17 18:14 Notes: 52 years old male with a history of alcohol abuse, seizure disorder, noncompliant, this morning already had 2-40 ounce of beer, went to work and fell down and had a seizure. Was brought in alert oriented to place and person. Complain of left-sided neck pain. weakness over the right arm and right leg which is going on for the last 6 months. (GUNNAR NGUYỄN) - Related Data Allergies/Adverse Reactions: No Known Allergies Allergy (Verified 09/28/17 19:44) Past Medical History - Past Medical History Cardiac Medical History: Reports: Hx Atrial Fibrillation, Hx Hypercholesterolemia, Hx Hypertension Pulmonary Medical History: Denies: Hx Tuberculosis Neurological Medical History: Reports: Hx Seizures Renal/ Medical History: Denies: Hx Peritoneal Dialysis Psychiatric Medical History: Reports: Hx Depression - Immunizations Immunizations up to date: Yes Hx Diphtheria, Pertussis, Tetanus Vaccination: Yes History of Influenza Vaccine for 12/2016 - 05/2017 Season: Unknown <GUNNAR NGUYỄN - Last Filed: 10/07/17 18:18> - Vital signs Vitals: Temp Pulse Resp BP Pulse Ox 97.8 F 109 H 18 162/105 H 94 10/07/17 17:44 10/07/17 17:44 10/07/17 17:44 10/07/17 17:44 10/07/17 17:44 Course - Laboratory Result Diagrams: 10/07/17 18:45 10/07/17 18:45 <STAR DO - Last Filed: 10/07/17 20:48> - Vital Signs Vital signs: Temp Pulse Resp BP Pulse Ox 97.8 F 109 H 14 156/99 H 98 10/07/17 17:44 10/07/17 17:44 10/07/17 20:00 10/07/17 20:00 10/07/17 20:01 - Laboratory Laboratory results interpreted by me: 10/07/17 10/07/17 18:45 18:45 RDW 14.2 H Monocytes % 13.5 H Sodium 146.3 H Chloride 109 H ALT 96 H Acetaminophen < 10 L Doctor's Discharge <GUNNAR NGUYỄN - Last Filed: 10/07/17 18:18> <STAR DO - Last Filed: 10/07/17 20:48> - Discharge Clinical Impression: Seizure, Alcohol abuse Condition: Stable Disposition: HOME, SELF-CARE Additional Instructions: Seizure, Known Epileptic You have had a seizure. Seizures may "break through" in an epileptic due to stress of infection or injury, a change in blood chemistry, or drug and alcohol use. Another common cause is failure to take medication as prescribed. Your doctor has evaluated your situation for the likely cause of this seizure. It is important that you follow his advice concerning any medication changes and follow-up care. Further testing of anti-seizure medication levels in your blood may be necessary. If you have a solo truck driver's license, it's important that you DO NOT DRIVE until given permission by your physician. This seizure must be reported to the solo truck driver 's license bureau. Call the doctor or return if seizures recur, or if new or unusual symptoms arise -- such as severe headache, confusion, excessive sleepiness, local weakness or numbness, neck stiffness, or fever. Please get your Keppra filled as soon as possible. Please refrain from drinking alcohol as this lowers your seizure threshold.
[2017-10-07] MEDS ORDERED: LEVETIRACETAM 1500 MG/NACL-ISO 1,500 MG/100 ML RTUPB IV SCH ×2 (18:30→20:00)
[2017-10-07 18:53] LABS: APPEARANCE,URINE CLEAR; BILIRUBIN,URINE NEGATIVE (NEGATIVE); COLOR,URINE COLORLESS; GLUCOSE, URINE NEGATIVE (NEGATIVE); KETONES,URINE NEGATIVE (NEGATIVE); LEUKOCYTE ESTERASE,URINE NEGATIVE (NEGATIVE); NITRITE,URINE NEGATIVE (NEGATIVE); PROTEIN,URINE NEGATIVE (NEGATIVE); URINE SPECIFIC GRAVITY 1.002; UROBILINOGEN,URINE NEGATIVE mg/dL (<2.0)
--- NOTE | 2017-10-07 19:05 | RADIOLOGY REPORT (SQ) ---
EXAM DESCRIPTION: CT HEAD WITHOUT COMPLETED DATE/TIME: 10/07/2017 6:47 pm REASON FOR STUDY: Seizure/ head injury COMPARISON: 10/06/2017 TECHNIQUE: Axial images acquired through the brain without intravenous contrast. Images reviewed wi th bone, brain and subdural windows. Images stored on PACS. All CT scanners at this facility use dose modulation, iterative reconstruction, and/or weight based d osing when appropriate to reduce radiation dose to as low as reasonably achievable (ALARA). [facility]: Dose Right [facility]: CareDose [facility]: Dose Right [facility]: Teradose 4D [facility]: Smart [employer] RADIATION DOSE: CT Rad equipment meets quality standard of care and radiation dose reduction techniq ues were employed. CTDIvol: 53.2 mGy. DLP: 1017 mGy-cm. mGy. LIMITATIONS: None. FINDINGS: VENTRICLES: Normal size and contour. CEREBRUM: No masses. No hemorrhage. No midline shift. No evidence for acute infarction. Normal gra y/white matter differentiation. No areas of low density in the white matter. CEREBELLUM: No masses. No hemorrhage. No alteration of density. No evidence for acute infarction. EXTRAAXIAL SPACES: No fluid collections. No masses. ORBITS AND GLOBE: No intra- or extraconal masses. Normal contour of globe without masses. CALVARIUM: No fracture. PARANASAL SINUSES: No fluid or mucosal thickening. SOFT TISSUES: No mass or hematoma. OTHER: No other significant finding. IMPRESSION: No acute intracranial findings. EVIDENCE OF ACUTE STROKE: NO. COMMENT: Quality ID # [id number]: Final reports with documentation of one or more dose reduction techniques (e.g., Automated exposure control, adjustment of the mA and/or kV according to patient size, use of iterative reconstruction technique) TECHNICAL DOCUMENTATION: JOB ID: [id number] [place]-72 2010 [employer]- All Rights Reserved Reading location - IP/workstation name: [employer]
[2017-10-07 19:09] LABS: URINE AMPHETAMINES SCREEN NEGATIVE; URINE BARBITURATES SCREEN NEGATIVE; URINE BENZODIAZEPINES SCREEN UNCONFIRMED POSITIVE; URINE COCAINE SCREEN NEGATIVE; URINE MARIJUANA (THC) SCREEN NEGATIVE; URINE METHADONE SCREEN NEGATIVE; URINE PHENCYCLIDINE SCREEN NEGATIVE
[2017-10-07 19:10] LABS: ABSOLUTE BASOPHILS # (AUTO) 0.1 10^3/uL (0.0-0.2); ABSOLUTE EOSINOPHILS # (AUTO) 0.2 10^3/uL (0.0-0.6); ABSOLUTE LYMPHOCYTES (AUTO) 1.9 10^3/uL (0.5-4.7); ABSOLUTE MONOCYTES (AUTO) 1.2 10^3/uL (0.1-1.4); ABSOLUTE NEUT (AUTO) 5.5 10^3/uL (1.7-8.2); BASOPHILS % (AUTO) 1.5 % (0-2); EOSINOPHILS % (AUTO) 2.4 % (0-6); HEMATOCRIT 45.4 % (37.9-51.0); HEMOGLOBIN 15.6 g/dL (13.5-17.0); MEAN CORPUSCULAR HGB CONC 34.5 g/dL (32.0-36.0); MEAN CORPUSCULAR VOLUME 93 fl (80-97); MONOCYTES % (AUTO) 13.5 % (3-13); PLATELET COUNT 280 10^3/uL (150-450); RED BLOOD COUNT 4.89 10^6/uL (4.35-5.55); RED CELL DISTRIBUTION WIDTH 14.2 % (11.5-14.0); SEGMENTED NEUTROPHILS % (AUTO) 61.6 % (42-78); TOTAL CELLS COUNTED % (AUTO) 100 %
[2017-10-07 19:30] LABS: ALANINE AMINOTRANSFERASE 96 U/L (21-72); ALBUMIN 4.6 g/dL (3.5-5.0); ALCOHOL 195 mg/dL (NONE DETECTED); ALKALINE PHOSPHATASE 46 U/L (38-126); ANION GAP 15 (5-19); ASPARTATE AMINO TRANSFERASE 58 U/L (17-59); BILIRUBIN,DIRECT 0.3 mg/dL (0.0-0.4); BILIRUBIN,TOTAL 0.3 mg/dL (0.2-1.3); BLOOD UREA NITROGEN 8 mg/dL (7-20); CALCIUM 9.4 mg/dL (8.4-10.2); CARBON DIOXIDE 22 mmol/L (22-30); CHLORIDE 109 mmol/L (98-107); GLUCOSE 94 mg/dL (75-110); POTASSIUM 4.2 mmol/L (3.6-5.0); SODIUM 146.3 mmol/L (137-145); TOTAL PROTEIN 7.7 g/dL (6.3-8.2)
[2017-10-07 19:33] LABS: ACETAMINOPHEN < 10 ug/mL (10-30)
[2017-10-07] MEDS ORDERED: LEVETIRACETAM 500 MG TABLET PO ONE (20:47)
[2017-10-07 20:51] VITALS: BP 160/100
--- NOTE | 2017-10-07 20:55 | ER Document Report ---
ED General - General Chief Complaint: Probable Seizure Stated Complaint: POSSIBLE SEIZURE Time Seen by Provider: 10/07/17 18:14 Mode of Arrival: Ambulatory Information source: Patient Notes: Patient presents with chief complaint of seizure. He reports he drank 2-40 ounce beers this morning and had a seizure one hour prior to arrival. Patient was seen in this emergency room for the same complaint less than 48 hours ago. Patient reports he is still not gotten his Keppra prescription filled. Patient denies any acute complaints. TRAVEL OUTSIDE OF THE [place] IN LAST 30 DAYS: Yes - Related Data Allergies/Adverse Reactions: No Known Allergies Allergy (Verified 09/28/17 19:44) Past Medical History - General Information source: Patient - Social History Smoking Status: Current Every Day Smoker Chew tobacco use (# tins/day): No Frequency of alcohol use: Heavy Drug Abuse: None Family History: Reviewed & Not Pertinent, Other - both his mother and father had OR's in thier 40's Patient has suicidal ideation: No Patient has homicidal ideation: No - Past Medical History Cardiac Medical History: Reports: Hx Atrial Fibrillation, Hx Hypercholesterolemia, Hx Hypertension Pulmonary Medical History: Denies: Hx Tuberculosis Neurological Medical History: Reports: Hx Seizures Renal/ Medical History: Denies: Hx Peritoneal Dialysis Psychiatric Medical History: Reports: Hx Depression Past Surgical History: Reports: Hx Orthopedic Surgery - L knee - Immunizations Immunizations up to date: Yes Hx Diphtheria, Pertussis, Tetanus Vaccination: Yes Review of Systems - Review of Systems Constitutional: No symptoms reported EENT: No symptoms reported Cardiovascular: No symptoms reported Respiratory: No symptoms reported Gastrointestinal: No symptoms reported Genitourinary: No symptoms reported Male Genitourinary: No symptoms reported Musculoskeletal: No symptoms reported Skin: No symptoms reported Hematologic/Lymphatic: No symptoms reported Neurological/Psychological: See HPI Physical Exam - Vital signs Vitals: Temp Pulse Resp BP Pulse Ox 97.8 F 109 H 18 162/105 H 94 10/07/17 17:44 10/07/17 17:44 10/07/17 17:44 10/07/17 17:44 10/07/17 17:44 - Notes Notes: PHYSICAL EXAMINATION: GENERAL: Well-appearing, well-nourished and in no acute distress. HEAD: Atraumatic, normocephalic. EYES: Pupils equal round and reactive to light, extraocular movements intact, sclera anicteric, conjunctiva are normal. ENT: Nares patent, oropharynx clear without exudates. Moist mucous membranes. NECK: Normal range of motion, supple without lymphadenopathy LUNGS: Breath sounds clear to auscultation bilaterally and equal. No wheezes rales or rhonchi. HEART: Regular rate and rhythm without murmurs ABDOMEN: Soft, nontender, nondistended abdomen. No guarding, no rebound. No masses appreciated. Musculoskeletal: Normal range of motion, no pitting or edema. No cyanosis. Small abrasion to right knee. NEUROLOGICAL: Cranial nerves grossly intact. Normal speech, normal gait. Normal sensory, motor exams PSYCH: Normal mood, normal affect. SKIN: Warm, Dry, normal turgor, no rashes or lesions noted. Course - Re-evaluation Re-evalutation: Patient is a 52-year-old male who presents the emergency department complaint of seizure. Patient has been off of his Keppra for approximately 10-14 days. Patient has been drinking alcohol earlier in the day. Patient was initially seen by triage provider, no abnormalities are found on his lab work, CT of his head is negative. Patient was given 1500 mg of Keppra IV and monitored in the emergency department for several hours. On my initial assessment patient is alert, oriented, speaking in complete sentences with no slurring noted. Patient recalls the events leading up to today's visit. Patient reports that he will be getting his medications filled tomorrow. Patient will be given another dose of Keppra 500 mg p.o. to equal his total daily dose of 2000 mg. Patient can ambulate with a steady gait. Patient declines any further workup to include the neck x-rays that were ordered in triage. Patient has no complaint of neck pain and is able to make his own decisions. Patient will be discharged home in the company of his friend. - Vital Signs Vital signs: Temp Pulse Resp BP Pulse Ox 97.8 F 109 H 9 L 160/100 H 99 10/07/17 17:44 10/07/17 17:44 10/07/17 20:46 10/07/17 20:46 10/07/17 20:46 - Laboratory Result Diagrams: 10/07/17 18:45 10/07/17 18:45 Laboratory results interpreted by me: 10/07/17 10/07/17 18:45 18:45 RDW 14.2 H Monocytes % 13.5 H Sodium 146.3 H Chloride 109 H ALT 96 H Acetaminophen < 10 L Discharge - Discharge Clinical Impression: Seizure, Alcohol abuse Condition: Stable Disposition: HOME, SELF-CARE Additional Instructions: Seizure, Known Epileptic You have had a seizure. Seizures may "break through" in an epileptic due to stress of infection or injury, a change in blood chemistry, or drug and alcohol use. Another common cause is failure to take medication as prescribed. Your doctor has evaluated your situation for the likely cause of this seizure. It is important that you follow his advice concerning any medication changes and follow-up care. Further testing of anti-seizure medication levels in your blood may be necessary. If you have a [place] driver's license, it's important that you DO NOT DRIVE until given permission by your physician. This seizure must be reported to the funeral [employer] driver 's license bureau. Call the doctor or return if seizures recur, or if new or unusual symptoms arise -- such as severe headache, confusion, excessive sleepiness, local weakness or numbness, neck stiffness, or fever. Please get your Keppra filled as soon as possible. Please refrain from drinking alcohol as this lowers your seizure threshold.
--- NOTE | 2017-10-07 22:29 | EKG REPORT ---
SEVERITY:- BORDERLINE ECG - SINUS RHYTHM BORDERLINE LEFT AXIS DEVIATION : Confirmed by: Barbara Curran MD 07-Oct-2017 22:28:30
== END 2017-10-07 20:54 | disposition home or self-care (01) ==
LOC: ER 17:38
DX: R56.9 Unspecified convulsions (principal); T42.6X6A Underdosing of other antiepileptic and sedative-hypnotic drugs, initial encounter; Z91.128 Patient's intentional underdosing of medication regimen for other reason; Z91.14 Patient's other noncompliance with medication regimen; Z72.89 Other problems related to lifestyle; F17.200 Nicotine dependence, unspecified, uncomplicated; I10 Essential (primary) hypertension
CPT/HCPCS: 93005; 99285; 96365; 36415; 80307 ×3; 85025; 80053; 81001; 83605; 70450; 93010; J1953

== ENCOUNTER 2017-10-08 21:28 | Emergency (ER) | payer SELFPAY ==
--- NOTE | 2017-10-08 23:31 | ER Document Report ---
ED Medical Screen (RME) - General Chief Complaint: Fall Stated Complaint: FALL/ETOH Time Seen by Provider: 10/08/17 23:28 Mode of Arrival: Wheelchair Information source: Patient Notes: Patient is a 52-year-old male with a history of alcoholism and seizures who presents to the ER today for fall just prior to arrival after drinking 2-40s. Patient states that he had the right side of his head and did blackout. Patient also complaining of right hand pain. Patient obviously intoxicated at this time. TRAVEL OUTSIDE OF THE [place] IN LAST 30 DAYS: No - Related Data Allergies/Adverse Reactions: No Known Allergies Allergy (Verified 10/08/17 23:28) Past Medical History - General Information source: Patient - Social History Frequency of alcohol use: daily Drug Abuse: None - Past Medical History Cardiac Medical History: Reports: Hx Atrial Fibrillation, Hx Hypercholesterolemia, Hx Hypertension Pulmonary Medical History: Denies: Hx Tuberculosis Neurological Medical History: Reports: Hx Seizures Renal/ Medical History: Denies: Hx Peritoneal Dialysis Psychiatric Medical History: Reports: Hx Depression Past Surgical History: Reports: Hx Orthopedic Surgery - L knee - Immunizations Immunizations up to date: Yes Hx Diphtheria, Pertussis, Tetanus Vaccination: Yes History of Influenza Vaccine for 12/2016 - 05/2017 Season: Unknown Review of Systems - Review of Systems Musculoskeletal: No symptoms reported Physical Exam - Vital signs Vitals: Temp Pulse Resp BP Pulse Ox 98.0 F 97 16 125/88 H 96 10/08/17 21:34 10/08/17 21:34 10/08/17 21:34 10/08/17 21:34 10/08/17 21:34 - Notes Notes: General: intoxicated, NAD Course - Vital Signs Vital signs: Temp Pulse Resp BP Pulse Ox 98.0 F 97 16 125/88 H 96 10/08/17 21:34 10/08/17 21:34 10/08/17 21:34 10/08/17 21:34 10/08/17 21:34
--- NOTE | 2017-10-09 00:02 | RADIOLOGY REPORT (SQ) ---
EXAM DESCRIPTION: XR HAND 3 OR MORE VIEWS COMPLETED DATE/TME: 10/08/2017 23:29 EXAM DESCRIPTION: CLINICAL HISTORY: etoh, fall, hit head COMPARISON: None FINDINGS: 3 view(s) submitted. No fracture or dislocation is identified. Bone marrow attenuation is unremarkable. No radiopaque foreign body is identified. IMPRESSION: No acute fracture or dislocation.
[2017-10-09] MEDS ORDERED: LEVETIRACETAM 500 MG TABLET PO ONE (00:03)
--- NOTE | 2017-10-09 00:07 | RADIOLOGY REPORT (SQ) ---
EXAM DESCRIPTION: CT HEAD WITHOUT IV CONTRAST COMPLETED DATE/TME: 10/08/2017 23:28 CLINICAL HISTORY: 52 years, Male, etoh, fall, hit head COMPARISON: 10/07/2017 TECHNIQUE: Contiguous axial images of the brain were obtained without the administration of intravenous contrast. Images stored on PACS. All CT scanners at this facility use dose modulation, iterative reconstruction, and/or weight based dosing when appropriate to reduce radiation dose to as low as reasonably achievable (ALARA). [facility]: Dose Right [facility]: CareDose [facility]: Dose Right [facility]: Teradose 4D [facility]: [employer] LIMITATIONS: None. Findings: Brain: No acute intracranial hemorrhage. No territorial infarct. No mass effect. Ventricles: Within normal limits in size Bones: No acute osseous finding. Paranasal sinuses: Mild mucosal thickening at the ethmoid and frontal sinuses. Dome-shaped focus at the inferior right maxillary sinus, most likely representing a mucous retention cyst. Mastoid air cells: Well aerated. Soft tissues: Within normal limits [facility] Resource Specialist view shows no additional significant finding. IMPRESSION: 1. Stable intracranial appearance without acute finding 2. Mild paranasal sinus disease as above. TECHNICAL DOCUMENTATION: Quality ID # [id number]: Final reports with documentation of one or more dose reduction techniques (e.g., Automated exposure control, adjustment of the mA and/or kV according to patient size, use of iterative reconstruction technique) 2010 [employer]- All Rights Reserved
--- NOTE | 2017-10-09 01:16 | ER Document Report ---
ED General - General Mode of Arrival: Wheelchair Information source: Patient TRAVEL OUTSIDE OF THE [place] IN LAST 30 DAYS: No <ALVARO GLORIA - Last Filed: 10/09/17 01:55> <EDY ESPINOZA - Last Filed: 10/09/17 04:47> - General Chief Complaint: Fall Stated Complaint: FALL/ETOH Time Seen by Provider: 10/08/17 23:28 Notes: 52-year-old male who presents to the emergency department today after a fall. Patient has been seen here several times in the past for falls that are all related to alcohol intoxication. Patient is intoxicated again tonight. Patient states he did not want to come in tonight but his friends brought him. Patient complains of a frontal headache but denies any other symptoms. (ALVARO GLORIA) The patient had an x-ray of his right hand and a CT scan of the brain ordered from triage. This is 3 CT scans of the head and 3 consecutive days. Each time for being EtOH intoxicated, falling down and striking his head. (EDY ESPINOZA) - Related Data Allergies/Adverse Reactions: No Known Allergies Allergy (Verified 10/08/17 23:28) Past Medical History - General Information source: Patient - Social History Smoking Status: Current Every Day Smoker Cigarette use (# per day): Yes Frequency of alcohol use: Heavy - daily Drug Abuse: None Family History: Reviewed & Not Pertinent, Other - both his mother and father had MA's in thier 40's Patient has suicidal ideation: No Patient has homicidal ideation: No - Past Medical History Cardiac Medical History: Reports: Hx Atrial Fibrillation, Hx Hypercholesterolemia, Hx Hypertension Neurological Medical History: Reports: Hx Seizures Psychiatric Medical History: Reports: Hx Depression Past Surgical History: Reports: Hx Orthopedic Surgery - L knee - Immunizations Immunizations up to date: Yes Hx Diphtheria, Pertussis, Tetanus Vaccination: Yes <ALVARO GLORIA - Last Filed: 10/09/17 01:55> Review of Systems - Review of Systems Constitutional: No symptoms reported EENT: No symptoms reported Cardiovascular: No symptoms reported Respiratory: No symptoms reported Gastrointestinal: No symptoms reported Genitourinary: No symptoms reported Male Genitourinary: No symptoms reported Musculoskeletal: No symptoms reported Skin: No symptoms reported Hematologic/Lymphatic: No symptoms reported Neurological/Psychological: See HPI, Headaches -: Yes All other systems reviewed and negative <ALVARO GLORIA - Last Filed: 10/09/17 01:55> Physical Exam <ALVARO GLORIA - Last Filed: 10/09/17 01:55> <EDY ESPINOZA - Last Filed: 10/09/17 04:47> - Vital signs Vitals: Temp Pulse Resp BP Pulse Ox 98.0 F 97 16 125/88 H 96 10/08/17 21:34 10/08/17 21:34 10/08/17 21:34 10/08/17 21:34 10/08/17 21:34 - Notes Notes: Physical Exam: General: Alert, smells of Etoh, intoxicated. HEENT: Normocephalic. Right forehead tenderness with palpation. PERRL. Extraocular movements intact. Oropharynx clear. Neck: Supple. Non-tender. Respiratory: No respiratory distress. Clear and equal breath sounds bilaterally. Cardiovascular: Regular rate and rhythm. Abdominal: Normal Inspection. Non-tender. No distension. Normal Bowel Sounds. Back: Non-tender. No deformity or step off. Extremities: Moves all four extremities. Upper extremities: Normal inspection. Normal ROM. Lower extremities: Normal inspection. No edema. Normal ROM. Neurological: Normal cognition. AAOx4. Normal speech. Psychological: Normal affect. Normal Mood. Skin: Right hand abrasion that is dry and scaly, does not appear to be remotely new. (ALVARO GLORIA) Course - Laboratory Result Diagrams: 10/09/17 01:27 10/09/17 01:27 <ALVARO GLORIA - Last Filed: 10/09/17 01:55> - Laboratory Result Diagrams: 10/09/17 01:27 10/09/17 01:27 - Transfer of Care Care transferred to following provider: Dr. Washington <EDY ESPINOZA - Last Filed: 10/09/17 04:47> - Vital Signs Vital signs: Temp Pulse Resp BP Pulse Ox 98.0 F 97 16 125/88 H 96 10/08/17 21:34 10/08/17 21:34 10/08/17 21:34 10/08/17 21:34 10/08/17 21:34 - Laboratory Laboratory results interpreted by me: 10/09/17 01:27 Sodium 145.2 H Chloride 109 H Carbon Dioxide 20 L BUN 6 L ALT 77 H - Transfer of Care Notes: 10/09/17 04:46 Patient care turned over to Dr. Washington. The patient is sleeping at this time. His alcohol level will be down close to 100 around 6:00 in the morning and should be stable to discharge at that time. (EDY ESPINOZA) Discharge <ALVARO GLORIA - Last Filed: 10/09/17 01:55> <EDY ESPINOZA - Last Filed: 10/09/17 04:47> - Discharge Clinical Impression: Alcohol intoxication Qualifiers: Complication of substance-induced condition: uncomplicated Qualified Code(s): F10.920 - Alcohol use, unspecified with intoxication, uncomplicated Forehead contusion Qualifiers: Encounter type: initial encounter Qualified Code(s): S00.83XA - Contusion of other part of head, initial encounter Condition: Stable Disposition: HOME, SELF-CARE Additional Instructions: Acute Alcohol Intoxication Your evaluation revealed very high levels of alcohol. You can from drinking a large amount of alcohol rapidly! Further, there's the risk of falls , traffic accidents, and fights. A high portion (about 50 percent) of the serious injuries seen in hospital emergency rooms are caused by alcohol. Alcohol overdosage is usually due to an underlying emotional or psychiatric problem. You may benefit from counselling. If "binge" drinking is an ongoing problem for you, or if you drink ANY AMOUNT of alcohol EVERY day, you most likely have a tendency to alcoholism. You should avoid alcohol totally. We can refer you for treatment. Persons with alcohol problems are often also prone to other addictions -- you should discuss any use of medications or drugs with the doctor. You should be watched at home for the next several hours by someone who has not been drinking. Get extra fluids for the next 24 hours. Call the doctor if there is repeated vomiting, increasing headache, decreasing level of alertness, or any other worsening. Contusion Your injury has resulted in a contusion -- a crushing of the deep tissues. No injury to important structures was detected during the physician's exam. Contusions vary in the amount of pain they cause, and in the length of time required for healing. Typically, the area will become bruised, and will remain painful to touch for two or three weeks. However, most patients are back to working and playing within a few days. After the initial period of rest and cold-packs, your symptoms (together with the doctor's recommendations) will determine how rapidly you can get back to full activity. Usually this means "do what feels okay, but don't do things that hurt." If re-examination was recommended, it's important to follow up as instructed. Call the doctor or return any time if pain increases, if swelling becomes severe, if you develop numbness or weakness in an injured extremity, or if any other alarming symptoms occur. Use ice packs to your forehead contusion today to reduce pain and swelling. Take Tylenol for pain if needed. Stop drinking alcohol, as it has led to you being in the emergency room 3 days in a row for alcohol related injuries. RETURN TO THE EMERGENCY ROOM IF ANY NEW OR WORSENING SYMPTOMS. Scribe Attestation: 10/09/17 01:16 I personally performed the services described in the documentation, reviewed and edited the documentation which was dictated to the scribe in my presence, and it accurately records my words and actions. (EDY ESPINOZA) Scribe Documentation - Scribe Written by Christy:: Christy Suazo, 10/09/2017 [id number] acting as scribe for :: Deepika <ALVARO GLORIA - Last Filed: 10/09/17 01:55>
[2017-10-09 01:42] LABS: ABSOLUTE BASOPHILS # (AUTO) 0.1 10^3/uL (0.0-0.2); ABSOLUTE EOSINOPHILS # (AUTO) 0.2 10^3/uL (0.0-0.6); ABSOLUTE MONOCYTES (AUTO) 0.8 10^3/uL (0.1-1.4); ABSOLUTE NEUT (AUTO) 3.6 10^3/uL (1.7-8.2); BASOPHILS % (AUTO) 1.4 % (0-2); EOSINOPHILS % (AUTO) 3.3 % (0-6); HEMATOCRIT 45.5 % (37.9-51.0); HEMOGLOBIN 15.5 g/dL (13.5-17.0); LYMPHOCYTES % (AUTO) 30.1 % (13-45); MEAN CORPUSCULAR HEMOGLOBIN 31.6 pg (27.0-33.4); MEAN CORPUSCULAR HGB CONC 34.1 g/dL (32.0-36.0); MEAN CORPUSCULAR VOLUME 93 fl (80-97); MONOCYTES % (AUTO) 12.2 % (3-13); PLATELET COUNT 260 10^3/uL (150-450); RED BLOOD COUNT 4.92 10^6/uL (4.35-5.55); RED CELL DISTRIBUTION WIDTH 13.7 % (11.5-14.0); TOTAL CELLS COUNTED % (AUTO) 100 %; WHITE BLOOD COUNT 6.8 10^3/uL (4.0-10.5)
[2017-10-09 02:07] LABS: ALANINE AMINOTRANSFERASE 77 U/L (21-72); ALBUMIN 4.2 g/dL (3.5-5.0); ALCOHOL 182 mg/dL (NONE DETECTED); ALKALINE PHOSPHATASE 48 U/L (38-126); ANION GAP 16 (5-19); ASPARTATE AMINO TRANSFERASE 42 U/L (17-59); BILIRUBIN,DIRECT 0.3 mg/dL (0.0-0.4); BILIRUBIN,TOTAL 0.4 mg/dL (0.2-1.3); BLOOD UREA NITROGEN 6 mg/dL (7-20); CARBON DIOXIDE 20 mmol/L (22-30); CHLORIDE 109 mmol/L (98-107); GLUCOSE 102 mg/dL (75-110); POTASSIUM 4.2 mmol/L (3.6-5.0); SODIUM 145.2 mmol/L (137-145); TOTAL PROTEIN 7.2 g/dL (6.3-8.2)
[2017-10-09 06:05] VITALS: BP 144/90
== END 2017-10-09 06:04 | disposition home or self-care (01) ==
LOC: ER 21:28
DX: S00.83XA Contusion of other part of head, initial encounter (principal); S60.511A Abrasion of right hand, initial encounter; W19.XXXA Unspecified fall, initial encounter; F10.120 Alcohol abuse with intoxication, uncomplicated; R51 Headache; F17.210 Nicotine dependence, cigarettes, uncomplicated; I10 Essential (primary) hypertension
CPT/HCPCS: 36415; 70450; 80053; 80307; 85025; 99284

== ENCOUNTER 2018-05-12 15:40 | Emergency (ER) | payer SELFPAY ==
--- NOTE | 2018-05-12 16:31 | ER Document Report ---
ED Medical Screen (RME) - General Chief Complaint: Headache Stated Complaint: REFFERED BY DOCTOR Time Seen by Provider: 05/12/18 16:27 Primary Care Provider: [facility] [Provider Group] - 05/15/18 Notes: Patient is here due to memory loss and having nightmares over the past month or so. Has also had a headache. Patient has a history of a significant head injury from a fall last summer. As a result of hitting his head, he developed seizures and has been treated with Keppra. He has not had a seizure in 8 months. However he is developing these memory problems and nightmares and his feels that is related to the Keppra. They tried to contact their primary care provider at the [facility], , but were too late and calling today. I spoke to someone else who advised him to come to the emergency department Patient and agree that patient does not have any acute symptoms and all of his symptoms have been going on for at least a month. Patient has an appointment to see his primary care on Tuesday. TRAVEL OUTSIDE OF THE [place] IN LAST 30 DAYS: No - Related Data Allergies/Adverse Reactions: No Known Allergies Allergy (Verified 10/08/17 23:28) Past Medical History - Social History Cigarette use (# per day): Yes Family history: Reviewed & Not Pertinent - Past Medical History Cardiac Medical History: Reports: Hx Atrial Fibrillation, Hx Hypercholesterolemia, Hx Hypertension Neurological Medical History: Reports: Hx Seizures Psychiatric Medical History: Reports: Hx Depression Past Surgical History: Reports: Hx Orthopedic Surgery - L knee - Immunizations Immunizations up to date: Yes Hx Diphtheria, Pertussis, Tetanus Vaccination: Yes History of Influenza Vaccine for 12/2016 - 05/2017 Season: Unknown Review of Systems - Review of Systems Notes: CONSTITUTIONAL : Denies fever. CARDIOVASCULAR: Denies chest pain. RESPIRATORY: Denies cough, chest congestion, or shortness of breath. GASTROINTESTINAL: Denies abdominal pain or nausea, vomiting, or diarrhea. GENITOURINARY: Denies difficulty or painful urinating, urinary frequency, blood in urine. Physical Exam - Vital signs Vitals: Temp Pulse Resp BP Pulse Ox 98.2 F 96 16 141/81 H 97 05/12/18 15:56 05/12/18 15:56 05/12/18 15:56 05/12/18 15:56 05/12/18 15:56 Interpretation: Normal Notes: PHYSICAL EXAMINATION: GENERAL: Well-appearing, no acute distress. HEAD: Atraumatic, normocephalic. NECK: Normal range of motion, supple. LUNGS: Breath sounds clear and equal bilaterally. HEART: Regular rate and rhythm without murmurs heard. ABDOMEN: Soft, nontender. No guarding or rebound or masses felt. Course - Re-evaluation Re-evalutation: 05/12/18 21:17 Before discharging patient, I ask if the patient drank alcohol and he acknowledged he did end when I asked how much, his says he drinks a dozen and on some days, he drinks a lot more. I recommended that he cut back on his alcohol consumption. I suggested that that may have more influence on his nightmares and sleep patterns and forgetfulness. I suggested that they cut back to cans a day every 3-4 days until he is down to a couple of cans a day or less. - Vital Signs Vital signs: Temp Pulse Resp BP Pulse Ox 98.2 F 93 18 127/90 H 98 05/12/18 15:56 05/12/18 16:32 05/12/18 16:32 05/12/18 16:32 05/12/18 16:32 Doctor's Discharge - Discharge Clinical Impression: Seizures, Medication side effect Condition: Stable Disposition: HOME, SELF-CARE Additional Instructions: Seizure, Known Epileptic You have had a seizure. Seizures may "break through" in an epileptic due to stress of infection or injury, a change in blood chemistry, or drug and alcohol use. Another common cause is failure to take medication as prescribed. Your doctor has evaluated your situation for the likely cause of this seizure. It is important that you follow his advice concerning any medication changes and follow-up care. Further testing of anti-seizure medication levels in your blood may be necessary. If you have a sales route driver's license, it's important that you DO NOT DRIVE until given permission by your physician. This seizure must be reported to the sales route driver's license bureau. Call the doctor or return if seizures recur, or if new or unusual symptoms arise -- such as severe headache, confusion, excessive sleepiness, local weakness or numbness, neck stiffness, or fever. The symptoms you are having could be due to side effects from Keppra but also could be secondary to your head injury you had last year. There are other possible causes as well. I would recommend you keep taking her Keppra just like you are currently taking it and follow-up with Dr. Ramirez, whom you are scheduled to see Tuesday. You can discuss changing or stopping the Keppra at that time. Medication Side Effects Your unpleasant symptoms are due to a drug you're taking. These symptoms are a common side effect of the medicine. It's not a true allergy. We stop any unnecessary drugs when bothersome side effects occur. Sometimes we'll substitute a different type of drug. In other cases, we must continue the drug. If so, we try to find a way to decrease the side effects. Many side effects decrease with time. Call us if the symptoms don't go away. FOLLOW-UP CARE: If you have been referred to a physician for follow-up care, call the physicians office for an appointment as you were instructed or within the next two days. If you experience worsening or a significant change in your symptoms, notify the physician immediately or return to the Emergency Department at any time for re-evaluation. Referrals: [facility] [Provider Group] - 05/15/18
[2018-05-12 16:39] VITALS: BP 127/90
== END 2018-05-12 16:40 | disposition home or self-care (01) ==
LOC: ER 15:40
DX: T42.6X5A Adverse effect of other antiepileptic and sedative-hypnotic drugs, initial encounter (principal); R56.9 Unspecified convulsions; R51 Headache; X58.XXXA Exposure to other specified factors, initial encounter; I10 Essential (primary) hypertension; Z79.899 Other long term (current) drug therapy; F17.210 Nicotine dependence, cigarettes, uncomplicated
CPT/HCPCS: 99283

== ENCOUNTER 2019-06-19 21:41 | Emergency (ER) | payer SELFPAY ==
[2019-06-19] MEDS ORDERED: LEVETIRACETAM 1000 MG/NACL-ISO 1,000 MG/100 ML RTUPB IV ONE (22:13)
[2019-06-19 22:33] LABS: ABSOLUTE EOSINOPHILS # (AUTO) 0.1 10^3/uL (0.0-0.6); ABSOLUTE MONOCYTES (AUTO) 0.8 10^3/uL (0.1-1.4); ABSOLUTE NEUT (AUTO) 5.1 10^3/uL (1.7-8.2); BASOPHILS % (AUTO) 0.4 % (0-2); EOSINOPHILS % (AUTO) 1.8 % (0-6); HEMATOCRIT 45.4 % (37.9-51.0); HEMOGLOBIN 16.1 g/dL (13.5-17.0); LYMPHOCYTES % (AUTO) 24.3 % (13-45); MEAN CORPUSCULAR HGB CONC 35.5 g/dL (32.0-36.0); MEAN CORPUSCULAR VOLUME 93 fl (80-97); MONOCYTES % (AUTO) 10.2 % (3-13); PLATELET COUNT 254 10^3/uL (150-450); RED BLOOD COUNT 4.88 10^6/uL (4.35-5.55); RED CELL DISTRIBUTION WIDTH 13.7 % (11.5-14.0); SEGMENTED NEUTROPHILS % (AUTO) 63.3 % (42-78); TOTAL CELLS COUNTED % (AUTO) 100 %
[2019-06-19 22:49] LABS: ALBUMIN 4.7 g/dL (3.5-5.0); ALCOHOL 276 mg/dL (NONE DETECTED); ALKALINE PHOSPHATASE 43 U/L (38-126); ANION GAP 14 (5-19); ASPARTATE AMINO TRANSFERASE 35 U/L (17-59); BILIRUBIN,DIRECT 0.3 mg/dL (0.0-0.4); BILIRUBIN,TOTAL 0.4 mg/dL (0.2-1.3); BLOOD UREA NITROGEN 6 mg/dL (7-20); CALCIUM 9.4 mg/dL (8.4-10.2); CARBON DIOXIDE 19 mmol/L (22-30); CHLORIDE 101 mmol/L (98-107); GLUCOSE 99 mg/dL (75-110); POTASSIUM 4.2 mmol/L (3.6-5.0); TOTAL PROTEIN 8.1 g/dL (6.3-8.2)
[2019-06-19] MEDS ORDERED: NICOTINE 21 MG/24 HR PATCH.TD24 TD ONE (22:51)
[2019-06-19] MEDS ORDERED: LORAZEPAM INJ 2 MG/1 ML VIAL IV ONE (23:00)
--- NOTE | 2019-06-19 23:19 | ER Document Report ---
ED General - General Chief Complaint: Probable Seizure Stated Complaint: POSS SEIZURE Time Seen by Provider: 06/19/19 22:00 Primary Care Provider: BROOKE MAXWELL MD [NO LOCAL MD] - Follow up as needed WANDA LAWRENCE MD [ACTIVE STAFF] - Follow up as needed Mode of Arrival: Ambulatory Information source: Patient TRAVEL OUTSIDE OF THE [place] IN LAST 30 DAYS: No - HPI Onset: Other - patient says he had a seizure at home and then one in the ER Onset/Duration: Sudden Quality of pain: No pain Severity: Mild Pain Level: Denies Associated symptoms: None Exacerbated by: Denies Relieved by: Denies Similar symptoms previously: Yes - patient has had many seizures in his life. He says he has one monthly. Recently seen / treated by doctor: No Notes: 54 year old male with a history of Seizures (supposed to be maintained on Keppra but patient is noncompliant and hasnt taken it in 2 months), Alcohol Abuse (says he drinks 15 beers or more a day), AFib, HTN, HLD here in the ER due to concern of seizures. The patient apparently had a seizure at home so his friend dropped him at the ER. The patient then apparently had another seizure in this ER (was not witnessed by me). The patient is requesting to go home during my H&P. - Related Data Allergies/Adverse Reactions: No Known Allergies Allergy (Verified 10/08/17 23:28) Home Medications: keppra (none for 2 mnths). bp med Past Medical History - General Information source: Patient - Social History Smoking Status: Current Every Day Smoker Frequency of alcohol use: Heavy Family History: Reviewed & Not Pertinent, Other - both his mother and father had UT's in thier 40's Patient has suicidal ideation: No Patient has homicidal ideation: No - Past Medical History Cardiac Medical History: Reports: Hx Atrial Fibrillation, Hx Hypercholesterolemia, Hx Hypertension Pulmonary Medical History: Denies: Hx Tuberculosis Neurological Medical History: Reports: Hx Seizures Renal/ Medical History: Denies: Hx Peritoneal Dialysis Psychiatric Medical History: Reports: Hx Depression Past Surgical History: Reports: Hx Orthopedic Surgery - L knee - Immunizations Immunizations up to date: Yes Hx Diphtheria, Pertussis, Tetanus Vaccination: Yes Review of Systems - Review of Systems Constitutional: No symptoms reported EENT: No symptoms reported Cardiovascular: No symptoms reported Respiratory: No symptoms reported Gastrointestinal: No symptoms reported Genitourinary: No symptoms reported Male Genitourinary: No symptoms reported Musculoskeletal: No symptoms reported Skin: No symptoms reported Hematologic/Lymphatic: No symptoms reported Neurological/Psychological: Seizure -: Yes All other systems reviewed and negative Physical Exam - Vital signs Vitals: Temp Pulse Resp BP Pulse Ox 97.7 F 93 16 151/105 H 97 06/19/19 21:47 06/19/19 21:47 06/19/19 21:47 06/19/19 21:47 06/19/19 21:47 - Notes Notes: GENERAL: Poorly groomed. Well-nourished and in no acute distress. HEAD: Atraumatic, normocephalic. EYES: Pupils equal round and reactive to light, extraocular movements intact, sclera anicteric, conjunctiva are normal. ENT: Nares patent, oropharynx clear without exudates. Moist mucous membranes. NECK: Normal range of motion, supple without lymphadenopathy or JVD. LUNGS: Breath sounds clear to auscultation bilaterally and equal. No wheezes rales or rhonchi. HEART: Regular rate and rhythm without murmurs, rubs or gallops. ABDOMEN: Soft, nontender, normoactive bowel sounds. No guarding, no rebound. No masses appreciated. EXTREMITIES: Normal range of motion, no pitting or edema. No clubbing or cyanosis. NEUROLOGICAL: Cranial nerves II through XII grossly intact. Normal speech, normal gait. PSYCH: Normal mood, normal affect. SKIN: Warm, Dry, normal turgor, no rashes or lesions noted. Repeat Skin Exam after the patient fell shows a linear 1cm laceration above his right eye in the lid region. Course - Re-evaluation Re-evalutation: 06/20/19 00:06 The patient was brought to the ER by a friend due to concern of having a seizure at home. The patient is noncompliant and tells me he hasn't taken Keppra in 2 months. Patient was loaded with 1g of IV Keppra in the ER. The patient allegedly had another seizure in the ER but I did not witness this event. The patient at one point climbed out of bed due to being intoxicated and he hit his head on the floor causing a small laceration above his right eye which I repaired with Dermabond. Patient requested help with his drinking. Since the patient's alcohol level was 267, plan will be to give IV fluids and recheck a blood alcohol level. Assuming the blood alcohol level drops below 200, the patient should be safe to go to [facility] for detox. - Vital Signs Vital signs: Temp Pulse Resp BP Pulse Ox 97.7 F 93 16 140/81 H 96 06/19/19 21:47 06/19/19 21:47 06/20/19 00:22 06/20/19 00:07 06/20/19 00:22 - Laboratory Result Diagrams: 06/19/19 22:20 06/19/19 22:20 Laboratory results interpreted by me: 06/19/19 22:20 Sodium 134.4 L Carbon Dioxide 19 L BUN 6 L - EKG Interpretation by [facility] EKG shows normal: Sinus rhythm, [place], Intervals, QRS Complexes, ST-T Waves Rate: Normal Rhythm: NSR When compared to previous EKG there are: No significant change Additional EKG results interpreted by me: 06/20/19 01:13 T wave inversions in III Procedures - Laceration/Wound Repair Right Upper Eyelid Region Wound length (cm): 1 Wound's Depth, Shape: Superficial, Linear Wound explored: Clean Wound Repaired With: Dermabond Layer Closure?: No Complications: No Discharge - Discharge Clinical Impression: Alcohol abuse, Seizure Laceration of face Qualifiers: Encounter type: initial encounter Qualified Code(s): S01.81XA - Laceration without foreign body of other part of head, initial encounter Condition: Stable Disposition: PSYCH HOSP/UNIT Instructions: Chronic Alcoholism ([facility]), Seizure, Known Epileptic ([facility]), Skin Adhesive Closure ([facility]) Additional Instructions: Take Keppra as prescribed to help prevent seizures. Follow up with a primary care doctor and with a Neurologist. If you do not have either some are listed in your paperwork. Follow up with outpatient mental health for management of your alcohol abuse. Prescriptions: Levetiracetam [Keppra 500 mg Tablet] 500 mg PO Q12 #60 tablet Referrals: BROOKE MAXWELL MD [NO LOCAL MD] - Follow up as needed WANDA LAWRENCE MD [ACTIVE STAFF] - Follow up as needed
[2019-06-19] MEDS ORDERED: NORMAL SALINE 1000 ML 1,000 ML IV ONE (23:32)
[2019-06-19 23:48] LABS: APPEARANCE,URINE CLEAR; BILIRUBIN,URINE NEGATIVE (NEGATIVE); COLOR,URINE STRAW; GLUCOSE, URINE NEGATIVE (NEGATIVE); KETONES,URINE NEGATIVE (NEGATIVE); LEUKOCYTE ESTERASE,URINE NEGATIVE (NEGATIVE); NITRITE,URINE NEGATIVE (NEGATIVE); PROTEIN,URINE NEGATIVE (NEGATIVE); URINE SPECIFIC GRAVITY 1.002; UROBILINOGEN,URINE NEGATIVE mg/dL (<2.0)
[2019-06-19] MEDS ORDERED: ACETAMINOPHEN 325 MG TABLET PO ONE (23:56)
[2019-06-20 00:01] LABS: URINE AMPHETAMINES SCREEN NEGATIVE; URINE BARBITURATES SCREEN NEGATIVE; URINE BENZODIAZEPINES SCREEN NEGATIVE; URINE COCAINE SCREEN NEGATIVE; URINE MARIJUANA (THC) SCREEN NEGATIVE; URINE METHADONE SCREEN NEGATIVE; URINE PHENCYCLIDINE SCREEN NEGATIVE
[2019-06-20 04:05] VITALS: BP 114/80
--- NOTE | 2019-06-20 10:06 | EKG REPORT ---
SEVERITY:- NORMAL ECG - SINUS RHYTHM : Confirmed by: Barbara Curran MD 20-Jun-2019 10:06:00
== END 2019-06-20 04:52 | disposition home or self-care (01) ==
LOC: ER 21:41
DX: R56.9 Unspecified convulsions (principal); T42.6X6A Underdosing of other antiepileptic and sedative-hypnotic drugs, initial encounter; Z91.128 Patient's intentional underdosing of medication regimen for other reason; Z91.14 Patient's other noncompliance with medication regimen; S01.111A Laceration without foreign body of right eyelid and periocular area, initial encounter; W19.XXXA Unspecified fall, initial encounter; Y92.238 Other place in hospital as the place of occurrence of the external cause; F10.129 Alcohol abuse with intoxication, unspecified; F17.200 Nicotine dependence, unspecified, uncomplicated; I10 Essential (primary) hypertension; Z79.899 Other long term (current) drug therapy
CPT/HCPCS: 99284; 96361; 96365; 36415; 80307 ×2; 83735; 85025; 80053; 81001; 93005; 93010; 12011; J7030; J1953

== ENCOUNTER 2019-07-09 20:38 | Emergency (ER) | payer SELFPAY ==
--- NOTE | 2019-07-09 21:13 | RADIOLOGY REPORT (SQ) ---
EXAM DESCRIPTION: XR FOOT 3 OR MORE VIEWS COMPLETED DATE/TME: 07/09/2019 00:00 CLINICAL HISTORY: 54 years ,Male bone tenderness COMPARISON: None. TECHNIQUE: LEFT foot, Three view FINDINGS: Comminuted fracture of the fourth distal phalanx and fifth distal phalanx. No significant ankle effusion noted. IMPRESSION: Fractures of the distal phalanges of the fourth and fifth digits
--- NOTE | 2019-07-09 21:47 | ER Document Report ---
ED Extremity Problem, Lower - General Chief Complaint: Foot Injury Stated Complaint: LEFT FOOT PAIN Time Seen by Provider: 07/09/19 21:42 Primary Care Provider: AGNES CONNOLLY DO [ACTIVE STAFF] - Follow up in 1 week (call for follow up appointment ) Mode of Arrival: Ambulatory Information source: Patient Notes: 54-year-old male past medical history significant for hypertension and a seizure disorder presents to the emergency room complaining of left foot and toe pain. Patient states he dropped logs on his left foot earlier today. Complaining of throbbing pain to the distal aspects of his left fourth and fifth toes as well as abrasions to the mid dorsal aspect of the left foot. Tetanus is up-to-date. No medications for pain. States took a cab to the emergency room. No history of previous trauma or injury to the left foot. States is able to walk but is painful. TRAVEL OUTSIDE OF THE [place] IN LAST 30 DAYS: No - HPI Patient complains to provider of: Injury - Related Data Allergies/Adverse Reactions: No Known Allergies Allergy (Verified 10/08/17 23:28) Past Medical History - General Information source: Patient - Social History Smoking Status: Current Every Day Smoker Frequency of alcohol use: None Drug Abuse: None Lives with: Alone Family History: Reviewed & Not Pertinent, Other - both his mother and father had WA's in thier 40's Patient has suicidal ideation: No Patient has homicidal ideation: No - Past Medical History Cardiac Medical History: Reports: Hx Atrial Fibrillation, Hx Hypercholesterolemia, Hx Hypertension Pulmonary Medical History: Denies: Hx Tuberculosis Neurological Medical History: Reports: Hx Seizures Renal/ Medical History: Denies: Hx Peritoneal Dialysis Psychiatric Medical History: Reports: Hx Depression Past Surgical History: Reports: Hx Orthopedic Surgery - L knee - Immunizations Immunizations up to date: Yes Hx Diphtheria, Pertussis, Tetanus Vaccination: Yes Review of Systems - Review of Systems Constitutional: No symptoms reported EENT: No symptoms reported Cardiovascular: No symptoms reported Respiratory: No symptoms reported Musculoskeletal: See HPI Skin: Other - Abrasions to dorsal aspect of the mid left foot, ecchymosis and swelling to the left fourth and fifth toes. Neurological/Psychological: No symptoms reported -: Yes All other systems reviewed and negative Physical Exam - Vital signs Vitals: Temp Pulse Resp BP Pulse Ox 97.6 F 103 H 20 179/93 H 100 07/09/19 20:42 07/09/19 20:42 07/09/19 20:42 07/09/19 20:42 07/09/19 20:42 - General General appearance: Appears well, Alert In distress: Mild - HEENT Head: Normocephalic, Atraumatic Eyes: Normal Pupils: PERRL - Respiratory Respiratory status: No respiratory distress Chest status: Nontender Breath sounds: Normal Chest palpation: Normal - Cardiovascular Rhythm: Regular Heart sounds: Normal auscultation Murmur: No - Extremities Foot: Tender, Abrasion, Ecchymosis, Other - Tenderness to the distal aspect of the left fourth and fifth toes. With ecchymosis and swelling noted. There are abrasions noted to the dorsal aspect of the left midfoot. No active bleeding noted.. No: Unable to bear weight - Neurological Neuro grossly intact: Yes Motor strength normal: LLE Sensory: Normal Notes: Sensation intact to painful and light stimuli to the left foot. Positive left pedal pulse. Capillary refill less than 3 seconds. - Skin Skin Temperature: Warm Skin Moisture: Dry Skin irregularity: other - Scattered abrasions that are noted to the dorsal left midfoot. No active bleeding noted. Ecchymosis noted to the left fourth and fifth toes. Course - Re-evaluation Re-evalutation: 07/09/19 22:24 Patient is resting comfortably x-ray results reviewed with patient. Fab tape and postop shoe applied by nursing staff as documented. Was counseled on need to rest, ice, elevate his foot. Neurovascular intact. Outpatient follow-up with orthopedics as discussed. Medications as prescribed. Given strict return to the emergency room guidelines. Return for any new or worsening symptoms. All questions were answered. Patient verbalized understanding agrees with plan of care. - Vital Signs Vital signs: Temp Pulse Resp BP Pulse Ox 98.1 F 74 15 166/94 H 100 07/09/19 23:22 07/09/19 23:22 07/09/19 23:22 07/09/19 23:22 07/09/19 23:22 - Diagnostic Test Radiology reviewed: Reports reviewed Discharge - Discharge Clinical Impression: Closed fracture of phalanx of left fourth toe, Closed fracture of phalanx of left fifth toe Condition: Good Disposition: HOME, SELF-CARE Instructions: Fractured Toe ([facility]) Additional Instructions: Rest, ice, elevate left foot. Medications as prescribed. Outpatient follow-up with orthopedics as discussed. Prescriptions: Diclofenac Sodium [Voltaren 50 Mg Tablet.] 50 mg PO BID PRN #30 tablet. PRN Reason: Referrals: AGNES CONNOLLY DO [ACTIVE STAFF] - Follow up in 1 week (call for follow up appointment )
[2019-07-09] MEDS ORDERED: KETOROLAC TROMETHAMINE 60 MG/2 ML SDV IM ONE (22:03)
[2019-07-09 23:23] VITALS: BP 166/94
== END 2019-07-09 23:22 | disposition home or self-care (01) ==
LOC: ER 20:38
DX: S92.532A Displaced fracture of distal phalanx of left lesser toe(s), initial encounter for closed fracture (principal); S90.812A Abrasion, left foot, initial encounter; W20.8XXA Other cause of strike by thrown, projected or falling object, initial encounter; F17.200 Nicotine dependence, unspecified, uncomplicated
CPT/HCPCS: 99283; 96372; 73630; J1885

== ENCOUNTER 2019-07-30 09:11 | Emergency (ER) | payer OTHER ==
[2019-07-30] MEDS ORDERED: LORAZEPAM 1 MG TABLET PO ONE (09:38)
--- NOTE | 2019-07-30 09:40 | ER Document Report ---
ED Psych Disorder / Suicide <LIBIA LEE - Last Filed: 07/30/19 19:53> - General Mode of Arrival: Ambulatory Information source: Patient TRAVEL OUTSIDE OF THE [place] IN LAST 30 DAYS: No - HPI Patient complains to provider of: Suicidal ideation Onset: This morning Quality of pain: No pain Suicide Risk Factors: Depressed, Lack of social support, Male Situational problems related to: Daughter Associated symptoms: Depressed Similar symptoms previously: Yes Recently seen / treated by doctor: No <KOFI JONES - Last Filed: 07/30/19 20:04> - General Chief Complaint: Suicidal Ideation Stated Complaint: DETOX Time Seen by Provider: 07/30/19 09:17 Primary Care Provider: [facility] [Provider Group] - Follow up as needed (Walk ins Tuesday- Tuesday 8:00AM-4:30PM) [facility] [Outside] - Follow up as needed (If you have an open case walk in Mondays 12:00PM-5:00PM Tuesdays-Fridays anyone can walk in 8:00AM-12:00PM) [facility] [Outside] - 07/30/19 (Call when you are discharged from the emergency department) [facility] [Outside] - Follow up as needed Notes: Patient presents stating that he was attempting to seek treatment for chronic alcoholism with the [facility]. Patient states that they would not accept him because he had multiple chronic medical conditions. Patient states he is here for treatment for his chronic alcoholism. Patient does state that his daughter was killed in a motor vehicle accident and this is gotten him upset. Patient does report some suicidal ideation. Patient states that he is currently homeless. Patient states he typically drinks about 15 pack of beer daily. (KOFI JONES) - Related Data Allergies/Adverse Reactions: No Known Allergies Allergy (Verified 10/08/17 23:28) Past Medical History - General Information source: Patient - Social History Smoking Status: Current Every Day Smoker Chew tobacco use (# tins/day): No Frequency of alcohol use: Heavy Drug Abuse: None Lives with: Homeless Family History: Reviewed & Not Pertinent, Other - both his mother and father had IN's in thier 40's Patient has homicidal ideation: No - Past Medical History Cardiac Medical History: Reports: Hx Atrial Fibrillation, Hx Hypercholestero lemia, Hx Hypertension Pulmonary Medical History: Denies: Hx Tuberculosis Neurological Medical History: Reports: Hx Seizures Renal/ Medical History: Denies: Hx Peritoneal Dialysis Psychiatric Medical History: Reports: Hx Depression Past Surgical History: Reports: Hx Orthopedic Surgery - L knee - Immunizations Immunizations up to date: Yes Hx Diphtheria, Pertussis, Tetanus Vaccination: Yes <KOFI JONES - Last Filed: 07/30/19 20:04> Review of Systems - Review of Systems Constitutional: No symptoms reported. denies: Fever EENT: No symptoms reported Cardiovascular: No symptoms reported. denies: Chest pain Respiratory: No symptoms reported. denies: Cough, Short of breath Gastrointestinal: No symptoms reported. denies: Nausea, Vomiting Genitourinary: No symptoms reported Male Genitourinary: No symptoms reported Musculoskeletal: No symptoms reported Skin: No symptoms reported Hematologic/Lymphatic: No symptoms reported Neurological/Psychological: Suicidal ideation, Other - Chronic alcoholism <KOFI JONES - Last Filed: 07/30/19 20:04> Physical Exam - General General appearance: Appears well, Alert In distress: None - HEENT Head: Normocephalic, Atraumatic Eyes: Normal Conjunctiva: Normal Neck: Normal, Supple. No: Lymphadenopathy - Respiratory Respiratory status: No respiratory distress Chest status: Nontender Breath sounds: Normal. No: Rales, Rhonchi, Stridor, Wheezing Chest palpation: Normal - Cardiovascular Rhythm: Regular Heart sounds: S1 appreciated, S2 appreciated - Back Back: Normal, Nontender - Extremities General upper extremity: Normal inspection, Normal strength General lower extremity: Normal inspection, Normal strength - Neurological Neuro grossly intact: Yes Cognition: Normal Clinton Coma Scale Eye Opening: Spontaneous Clinton Coma Scale Verbal: Oriented Diaz Coma Scale Motor: Obeys Commands Clinton Coma Scale Total: 15 - Psychological Associated symptoms: Depressed - Skin Skin Temperature: Warm Skin Moisture: Dry Skin Color: Normal <KOFI JONES - Last Filed: 07/30/19 20:04> - Vital signs Vitals: Temp 97.9 F 07/30/19 09:26 Course - Laboratory Result Diagrams: 07/30/19 09:30 07/30/19 09:30 <LIBIA LEE - Last Filed: 07/30/19 19:53> - Laboratory Result Diagrams: 07/30/19 09:30 07/30/19 09:30 <KOFI JONES - Last Filed: 07/30/19 20:04> - Re-evaluation Re-evalutation: 07/30/19 09:39 Patient with a history of depression and is not currently on any medications. Patient reports also chronic alcoholism in which he typically drinks 15 beers a day. Patient states he found out his daughter today in a motor vehicle accident. He has no other children. Patient reports suicidal thoughts. Patient under 24-hour hold pending mental health evaluation at this time. 07/30/19 12:27 Patient appears medically clear for discharge or transfer pending mental health evaluation. 07/30/19 19:46 Mental health team evaluated patient and does not feel that he meets IVC criteria at this time. Will plan for discharge. Patient will be provided with outpatient resources including mobile crisis. (KOFI JONES) - Vital Signs Vital signs: Temp Pulse Resp BP Pulse Ox 98.2 F 84 18 171/93 H 97 07/30/19 19:54 07/30/19 19:54 07/30/19 19:54 07/30/19 19:54 07/30/19 19:54 - Laboratory Laboratory results interpreted by me: 07/30/19 09:30 Chloride 108 H BUN 6 L Salicylates < 1.0 L Acetaminophen < 10 L Discharge <LIBIA LEE - Last Filed: 07/30/19 19:53> <KOFI JONES - Last Filed: 07/30/19 20:04> - Discharge Clinical Impression: Alcohol abuse, Homeless, Suicidal ideation Depression Qualifiers: Depression Type: unspecified Qualified Code(s): F32.9 - Major depressive disorder, single episode, unspecified Condition: Stable Disposition: HOME, SELF-CARE Instructions: Chronic Alcoholism ([facility]) Additional Instructions: You have been evaluated by both medical and behavioral health teams for alcohol intoxication and suicidal ideation. You have been deemed appropriate for discharge. While in the emergency department you received the following services: Medical screening and assessment, nursing services, dietary services, pharmacological services, one-on-one counseling and/or psychotherapy, envi ronmental services, and continuous observation by a patient director of public safety. Medications can be very effective in managing mood, depression, anxiety and sleep which are often issues accompanied with alcohol withdrawal and then abstinence. You are recommended to utilize mobile crisis for voluntary medical detoxification. Getting into a ad terminal makeup operator recovery program after detoxification can be beneficial. At the very least you should follow up with outpatient services for ongoing care and support via medication management, group therapy and individual therapy. CHRONIC ALCOHOLISM and ALCOHOL ABUSE: Your evaluation reveals evidence of chronic alcoholism, an addiction to alcohol. The tendency to alcoholism may be inherited. Chronic use of alcohol weakens muscles, causes fatty deposits in the liver, damages the stomach, makes you more prone to infections, and can cause defects in unborn children. In the long run, brain atrophy and cirrhosis of the liver result. You are also at greater risk for certain types of cancer, such as cancer of the mouth, throat, stomach, and liver. Counselling services are available to help you. In-hospital treatment programs often help. Support groups such as Alcoholics Anonymous can be very useful in beating this addiction. Your physician can make a referral for you. As alcoholics often are prone to other addictions, you should discuss your use of any other medications with the doctor. ALCOHOL WITHDRAWAL: (concern when you abruptly stop alcohol use and maintain abstinence) Your symptoms are caused by alcohol withdrawal. After a period of frequent drinking, the brain and body are changed by the alcohol. When you quit or reduce your drinking, the nervous system becomes unstable. Withdrawal symptoms can start a few hours after your last drink, but sometimes don't begin until a couple of days later. Symptoms can include shakiness, sweating, insomnia, nausea, vomiting, fearfulness, hallucinations, and seizures. In addition to the acute effects of alcohol withdrawal, we often have to deal with the medical effects of alcoholism. These problems often include dehydr ation, stomach irritation, intestinal bleeding, low blood sugar, liver disease, and pancreas inflammation. Treatment for alcohol withdrawal includes mild sedatives, vitamins, and fluids. You need to be with someone who can help if symptoms become severe. Many patients can withdraw at home. Admission to the hospital or a detox facility may be necessary if withdrawal symptoms are severe and uncontrollable. Abstaining from alcohol is the only effective long-term treatment. If you start drinking again, you will not be able to control yourself after the first drink. Treatment programs are available. In addition, many alcoholics benefit from Alcoholics Anonymous or other support groups available through your counselor or adventist perinatal educator. ASHLIE and ZAC are support groups for frie nds and family members of an alcoholic. Go to the emergency room if you develop persistent vomiting, severe abdominal pain, fever, shortness of breath, hallucinations, uncontrollable tremors, or seizures. DEPRESSION: (alcohol is a depressant an will likely increase depressive sympto ms) Your evaluation reveals that you have mental depression. While symptoms may be vague, they often include disturbance of sleep, fatigue, loss of appetite, and general loss of interest in life. While depression may be a side effect of drugs, or a reaction to a major change in your life, many cases have no known cause. If depression is acute, and related to a major loss in your life, you can expect it to clear completely with time. If you have been depressed a long time, are prone to repeated bouts of depression or low mood, or have been thinking of suicide, get help. Depression can be treated with anti-depressant medication and counselling. Long-term depression will often take a few weeks to clear, even with appropriate medication. Follow-up care is important. SUICIDAL IDEATION: (since alcohol is a depressant and often increases depression at times suicidal ideation goes hand in hand with the depression) Suicidal ideation is a common medical term for thoughts about suicide, which may be as detailed as a formulated plan, without the suicidal act itself. Although most people who undergo suicidal ideation do not commit suicide, some go on to make suicide attempts. The range of suicidal ideation varies greatly from fleeting to detailed planning, role playing, and unsuccessful attempts. While thoughts about suicide are common, most people do not carry out serious actions to commit suicide. Based upon your evaluation and discussion with you, we do not believe you are currently at risk to act upon your thoughts of suicide. You have agreed to return to the Emergency Department, at any time, if you feel inclined to act upon your suicidal thoughts. FOLLOW-UP CARE: You are recommended to utilize [facility] ([facility]) for voluntary medical detoxification placement. Alcohol is one of the only substances you can from withdrawal and requires medical monitoring. The [facility] denied you for medical acuity. You have the direct number to [facility] and were instructed to contact them as soon as you leave the emergency department. You have also been provided both substance abuse and mental health resource sheets to have access to detoxification centers that are medical, ad terminal makeup operator recovery programs and outpatient agencies ([facility] and [facility] local agency) for ongoing care/treatment. If you experience worsening or a significant change in your symptoms, notify your physician immed iately, return to the Emergency Department at any time for re-evaluation or utilize mobile crisis. Referrals: [facility] [Outside] - Follow up as needed [facility] [Outside] - 07/30/19 (Call when you are discharged from the emergency department) [facility] [Provider Group] - Follow up as needed (Walk ins Tuesday- Tuesday 8:00AM-4:30PM) [facility] [Outside] - Follow up as needed (If you have an open case walk in Mondays 12:00PM-5:00PM Tuesdays-Fridays anyone can walk in 8:00AM-12:00PM)
[2019-07-30 10:10] LABS: ABSOLUTE BASOPHILS # (AUTO) 0.1 10^3/uL (0.0-0.2); ABSOLUTE EOSINOPHILS # (AUTO) 0.2 10^3/uL (0.0-0.6); ABSOLUTE LYMPHOCYTES (AUTO) 1.9 10^3/uL (0.5-4.7); ABSOLUTE MONOCYTES (AUTO) 0.6 10^3/uL (0.1-1.4); ABSOLUTE NEUT (AUTO) 3.1 10^3/uL (1.7-8.2); BASOPHILS % (AUTO) 1.8 % (0-2); EOSINOPHILS % (AUTO) 3.4 % (0-6); HEMATOCRIT 47.9 % (37.9-51.0); HEMOGLOBIN 16.5 g/dL (13.5-17.0); MEAN CORPUSCULAR HEMOGLOBIN 31.6 pg (27.0-33.4); MEAN CORPUSCULAR HGB CONC 34.4 g/dL (32.0-36.0); MEAN CORPUSCULAR VOLUME 92 fl (80-97); MONOCYTES % (AUTO) 9.5 % (3-13); PLATELET COUNT 293 10^3/uL (150-450); RED BLOOD COUNT 5.21 10^6/uL (4.35-5.55); RED CELL DISTRIBUTION WIDTH 13.8 % (11.5-14.0); SEGMENTED NEUTROPHILS % (AUTO) 52.3 % (42-78); TOTAL CELLS COUNTED % (AUTO) 100 %; WHITE BLOOD COUNT 5.9 10^3/uL (4.0-10.5)
[2019-07-30 10:12] LABS: APPEARANCE,URINE CLEAR; BILIRUBIN,URINE NEGATIVE (NEGATIVE); COLOR,URINE COLORLESS; GLUCOSE, URINE NEGATIVE (NEGATIVE); KETONES,URINE NEGATIVE (NEGATIVE); LEUKOCYTE ESTERASE,URINE NEGATIVE (NEGATIVE); NITRITE,URINE NEGATIVE (NEGATIVE); PROTEIN,URINE NEGATIVE (NEGATIVE); URINE SPECIFIC GRAVITY 1.002; UROBILINOGEN,URINE NEGATIVE mg/dL (<2.0)
[2019-07-30 10:29] LABS: ACETAMINOPHEN < 10 ug/mL (10-30); ALBUMIN 4.7 g/dL (3.5-5.0); ALCOHOL 293 mg/dL (NONE DETECTED); ALKALINE PHOSPHATASE 51 U/L (38-126); ANION GAP 9 (5-19); ASPARTATE AMINO TRANSFERASE 26 U/L (17-59); BILIRUBIN,TOTAL 0.3 mg/dL (0.2-1.3); BLOOD UREA NITROGEN 6 mg/dL (7-20); CALCIUM 9.1 mg/dL (8.4-10.2); CARBON DIOXIDE 26 mmol/L (22-30); CHLORIDE 108 mmol/L (98-107); GLUCOSE 108 mg/dL (75-110); POTASSIUM 4.8 mmol/L (3.6-5.0); SALICYLATE < 1.0 mg/dL (2.0-20.0); TOTAL PROTEIN 8.1 g/dL (6.3-8.2)
[2019-07-30 10:44] LABS: URINE AMPHETAMINES SCREEN NEGATIVE; URINE BARBITURATES SCREEN NEGATIVE; URINE BENZODIAZEPINES SCREEN NEGATIVE; URINE COCAINE SCREEN NEGATIVE; URINE MARIJUANA (THC) SCREEN NEGATIVE; URINE METHADONE SCREEN NEGATIVE; URINE PHENCYCLIDINE SCREEN NEGATIVE
[2019-07-30] MEDS ORDERED: NICOTINE 21 MG/24 HR PATCH.TD24 TD ONE (12:41)
--- NOTE | 2019-07-30 14:05 | EKG REPORT ---
SEVERITY:- BORDERLINE ECG - SINUS RHYTHM BORDERLINE T ABNORMALITIES, INFERIOR LEADS : Confirmed by: Barbara Curran MD 30-Jul-2019 14:04:38
--- NOTE | 2019-07-30 17:33 | PSYCHOLOGICAL NOTE ---
Psych Note - Psych Note Date seen by psych provider: 07/30/19 Time seen by psych provider: 12:16 - [id number] Psych Note: Presenting Problem: Patient is a 54 year old who male presented to the [facility] ED this morning via EMS from [facility] for alcohol intoxication (chronic, reported drinking 15 beers a day, been seen in ED for ETOH 4 other times) and suicidal ideation. Serum Alcohol Level was 293 upon arrival to the ED. He reported his daughter in a motor vehicle accident in [place] yesterday and he doesn't want to live. Patient was subsequently put on a 24 Hour Petition for Evaluation. Observed patient wandering out into the hallway from his room. Medical staff were easily able to redirect him both verbally and walking/guiding him back to his room. He had unsteady gait. He identified he had not yet talked with someone and was starting to get upset. This clinician introduced self and explained role. He stated "yeah" when asked if he still had suicidal thoughts. He commented "I just don't want to live anymore, my daughter's gone, why should I be here, what's fair is fair, I want to see her, it's not fair." Patient gave verbal consent to link him to [facility]. He commented "the place here or [place], the place here the people were nice." He reported he had a "deep head contusion that caused seizures, I drink alcohol which doesn't help and makes it flare up more, Keppra helps." When asked if he is taking Keppra as prescribed he said "I forgot it yesterday and today." Patient identified he is also prescribed Prozac and Klonopin by Dr. Ramirez. He commented "the place next door started me on medications." Patient asked about water chips or something and stated "I am starving, by belly, I don't want to get sick." He also requested blankets and said "it's cold, I am freezing." Patient has been seen in the [facility] ED previously by Behavioral Health (08/02/17, 08/01/17, 07/31/17, all separate visits) for similar etiology (alcohol intoxication and SI). He has been seen about 4 times for just alcohol intoxication. A review of home medication listed as last filled 06/21/2019 by his pharmacy in the [facility] system include: Keppra 500MG BID from an [facility] ED provider and then [place] by Shirley Pelayo. Patient was alert and oriented to self, person, place (general, knew in a hospital, did not know which one), and situation (his knowledge and understanding). Mood was depressed with flat affect though may be due to alcohol intoxication. He endorsed passive SI saying I just don't want to be here anymore and referencing his daughter who just . Patient did not appear to be responding to internal stimuli as evidenced by answering questions appropriately when addressed, however his daughter is alive (she was in a car accident a couple months ago). Conversational speech was somewhat slurred. Thought proc esses were slowed down but linear. Intellectual abilities are estimated to be average. Insight, judgment and impulse control were poor as evidenced by alcohol intoxication, still being under the influence and untrue belief that his daughter is (spoke with her). Collateral: Patient gave verbal consent to talk to and keep informed his significant other Mely Uriarte . Tried calling twice by [id number]. No answer. Recording says patient is not unavailable right or or has traveled outside the coverage area. From [id number] spoke to Mely and she referred to herself as his fiance. Note her number is [phone]. She stated they "have been together 4 years, they are together currently but not living together because of the alcohol use." She commented "it makes him angry, say things that aren't true and really mad." She noted his drinking "has been an ongoing thing that his mother told me about." She noted patient had previously been to [facility] but signed himself out after the 3rd day. She stated [facility] was involved and tried to get him to a place out of town but patient did not show up. She confirmed he does not take his Keppra or Blood Pressure medications. She noted "he will say things to make people have a pity republican for him." From [id number] spoke to patient's daughter (Eva Pimentel [phone]) who called in to the hospital. She stated someone/a female called her at her job saying the hospital wouldn't release information and felt it may be related to his seizures since he has them. Daughter identified she has not spoke to her father in years and mentioned since she was 12 years old. She confirmed she was in a car accident months ago but obviously didn't . She stated "he lies a lot about things." She went on to say "he's said he has cancer when he doesn't, had a FB post that he and said he had been hacked and said his girlfriend was when she is not." She reported "I'm not sure he even has seizures." She was allotted a chance to speak with patient and said she would. Attending Nurse took the phone to patient's room. Daughter said she could be contacted about anything. From [id number] spoke to patient's mother Carly ([phone]) who called after patient's daughter contacted her. She stated patient "is an alcoholic/he can't stop drinking/he drinks one right after the other, she is unsure of mental health diagnoses, he has been depressed for quite a few years, 3 years ago he was going to because she took him, he lies and steals (2 years ago stole two big screen TVs from her), does well for 3-4 weeks after getting involved with treatment then goes right back to drinking." Mother said "last year he posted on FB that he and lied to them about having pancreatic cancer." Mother stated when he first moved from [place] to [place] he had a good job with her but then fell out. Mother noted at that time she found 48 tall/big bags of empty beer cans. Mother noted "he was arrested r ecently for panhandling and I don't think he lives anywhere." She noted medical issues of High Blood pressure and High Cholesterol. She stated "he has put myself and other family through the ringer." She stated she resides locally but he is not welcome in her home as she has health problems (has had 3 heart attacks). She denied patient having a general seizure history and said while he stayed with her and in [place] he did not have any. She noted patient's "ex girlfriend is Mely Uriarte who also drinks and they just need to stay away from each other." Mother stated the ex girlfriend has said patient passed out at [employer] about a year ago and they told him he had an alcohol seizure. Interventions: Used open ended questioning to obtain information regarding current crisis situation and past, as well as to get patient to elaborate. Used coming alongside when patient talked about his passive suicidal ideation. Diagnosis: Alcohol Intoxication with Use Disorder Severe (chronic) History of Depression Impression/Plan: Recommendation to complete FULL IVC (patient was a 24 Hour Petition for Evaluation). Patient is still under the influence of alcohol, his Serum Alcohol Level was 293 upon arrival to ED today at 0930, it typically decreases 20 every hour, so at 1330 was still around a 216. He also is saying his daughter in a car accident but she did not (this clinician spoke w ith her). He has a history of chronic alcohol use and depression. Consulted with Dr. Judge regarding the management and care of patient. ED Physician in agreement with recommendations.
[2019-07-30 19:58] VITALS: BP 171/93
== END 2019-07-30 20:46 | disposition home or self-care (01) ==
LOC: ER 09:11
DX: R45.851 Suicidal ideations (principal); Z59.0 Homelessness; F10.20 Alcohol dependence, uncomplicated; F32.9 Major depressive disorder, single episode, unspecified; F17.200 Nicotine dependence, unspecified, uncomplicated; I10 Essential (primary) hypertension
CPT/HCPCS: 36415; 80053; 80307; 81001; 85025; 93005; 93010; 99285

== ENCOUNTER 2019-08-19 15:40 | Emergency (ER) | payer SELFPAY ==
[2019-08-19 16:04] LABS: ABSOLUTE BASOPHILS # (AUTO) 0.1 10^3/uL (0.0-0.2); ABSOLUTE LYMPHOCYTES (AUTO) 1.2 10^3/uL (0.5-4.7); ABSOLUTE MONOCYTES (AUTO) 1.1 10^3/uL (0.1-1.4); ABSOLUTE NEUT (AUTO) 11.3 10^3/uL (1.7-8.2); BASOPHILS % (AUTO) 0.9 % (0-2); EOSINOPHILS % (AUTO) 0.3 % (0-6); HEMATOCRIT 43.9 % (37.9-51.0); HEMOGLOBIN 15.2 g/dL (13.5-17.0); LYMPHOCYTES % (AUTO) 8.8 % (13-45); MEAN CORPUSCULAR HGB CONC 34.6 g/dL (32.0-36.0); MEAN CORPUSCULAR VOLUME 92 fl (80-97); MONOCYTES % (AUTO) 8.2 % (3-13); PLATELET COUNT 259 10^3/uL (150-450); RED BLOOD COUNT 4.76 10^6/uL (4.35-5.55); RED CELL DISTRIBUTION WIDTH 13.9 % (11.5-14.0); SEGMENTED NEUTROPHILS % (AUTO) 81.8 % (42-78); TOTAL CELLS COUNTED % (AUTO) 100 %; WHITE BLOOD COUNT 13.8 10^3/uL (4.0-10.5)
[2019-08-19] MEDS ORDERED: NICOTINE 14 MG/24 HR PATCH.TD24 TD ONE (16:14)
[2019-08-19 16:23] LABS: ALBUMIN 4.2 g/dL (3.5-5.0); ALCOHOL 259 mg/dL (NONE DETECTED); ALKALINE PHOSPHATASE 47 U/L (38-126); ANION GAP 12 (5-19); ASPARTATE AMINO TRANSFERASE 27 U/L (17-59); BILIRUBIN,TOTAL 0.7 mg/dL (0.2-1.3); BLOOD UREA NITROGEN 9 mg/dL (7-20); CALCIUM 9.1 mg/dL (8.4-10.2); CARBON DIOXIDE 21 mmol/L (22-30); CHLORIDE 97 mmol/L (98-107); GLUCOSE 107 mg/dL (75-110); POTASSIUM 4.1 mmol/L (3.6-5.0); TOTAL PROTEIN 7.2 g/dL (6.3-8.2)
[2019-08-19 16:33] LABS: APPEARANCE,URINE SLIGHTLY-CLOUDY; BILIRUBIN,URINE NEGATIVE (NEGATIVE); COLOR,URINE YELLOW; GLUCOSE, URINE NEGATIVE (NEGATIVE); KETONES,URINE NEGATIVE (NEGATIVE); LEUKOCYTE ESTERASE,URINE NEGATIVE (NEGATIVE); NITRITE,URINE NEGATIVE (NEGATIVE); PROTEIN,URINE NEGATIVE (NEGATIVE); URINE SPECIFIC GRAVITY 1.003; UROBILINOGEN,URINE NEGATIVE mg/dL (<2.0)
[2019-08-19 16:54] LABS: URINE AMPHETAMINES SCREEN NEGATIVE; URINE BARBITURATES SCREEN NEGATIVE; URINE BENZODIAZEPINES SCREEN NEGATIVE; URINE COCAINE SCREEN NEGATIVE; URINE MARIJUANA (THC) SCREEN NEGATIVE; URINE METHADONE SCREEN NEGATIVE; URINE PHENCYCLIDINE SCREEN NEGATIVE
--- NOTE | 2019-08-19 19:01 | EKG REPORT ---
SEVERITY:- NORMAL ECG - SINUS RHYTHM : Confirmed by: Elvira Casey 19-Aug-2019 19:01:30
--- NOTE | 2019-08-19 19:34 | ER Document Report ---
ED General - General TRAVEL OUTSIDE OF THE [place] IN LAST 30 DAYS: No - Related Data Home Medications: supposed to be taking medication for seizures and htn. <MANASA HERNANDEZ - Last Filed: 08/19/19 19:29> <ZANDRA NIEVES IV - Last Filed: 08/19/19 22:27> - General Chief Complaint: Alcohol Withdrawl Stated Complaint: POSSIBLE SEIZURE Time Seen by Provider: 08/19/19 16:01 Notes: 54-year-old man presents to the emergency department with a history of alcohol abuse, homelessness, and pseudoseizures. Apparently brought to the emergency department by EMS, reports pt called 911 and told them he was going to have a seizure. He was found lying on the ground near the [employer] restaurant, he was alert and responsive and able to get onto the stretcher. The EMS notes that patient had some episodes of shaking during his transport, patient has apparently homeless, has a history of coming in getting Ativan. He also has multiple visits with requesting detox only to not follow through in the past. (MANASA HERNANDEZ) - Related Data Allergies/Adverse Reactions: No Known Allergies Allergy (Verified 08/19/19 15:52) Past Medical History - Social History Smoking Status: Current Every Day Smoker Chew tobacco use (# tins/day): No Frequency of alcohol use: Heavy Drug Abuse: None Family History: Reviewed & Not Pertinent, Other - both his mother and father had IN's in thier 40's Patient has homicidal ideation: No - Past Medical History Cardiac Medical History: Reports: Hx Atrial Fibrillation, Hx Hypercholesterolemia, Hx Hypertension Pulmonary Medical History: Denies: Hx Tuberculosis Neurological Medical History: Reports: Hx Seizures Renal/ Medical History: Denies: Hx Peritoneal Dialysis Psychiatric Medical History: Reports: Hx Depression Past Surgical History: Reports: Hx Orthopedic Surgery - L knee - Immunizations Immunizations up to date: Yes Hx Diphtheria, Pertussis, Tetanus Vaccination: Yes <MANASA HERNANDEZ - Last Filed: 08/19/19 19:29> Review of Systems <MANASA HERNANDEZ - Last Filed: 08/19/19 19:29> - Review of Systems Notes: Constitutional: + Alcohol intoxication HENT: Negative for sore throat. Eyes: Negative for visual changes. Cardiovascular: Negative for chest pain. Respiratory: Negative for shortness of breath. Gastrointestinal: Negative for abdominal pain, vomiting or diarrhea. Genitourinary: Negative for dysuria. Musculoskeletal: Negative for back pain. Skin: Negative for rash. Neurological: + Headaches, no weakness or numbness. 10 point ROS negative except as marked above and in HPI. (MANASA HERNANDEZ) Physical Exam <MANASA HERNANDEZ - Last Filed: 08/19/19 19:29> - Vital signs Vitals: Resp 23 H 08/19/19 15:48 - Notes Notes: PHYSICAL EXAMINATION: Physical Exam: General: Well-nourished intoxicated 54-year-old male in no acute distress HEENT: NC/AT, pupils equal round and reactive to light, MM moist,nares clear, oropharynx clear, airway patent Neck: supple, no adenopathy, no masses. Good range of motion Lungs:Clear, no wheezing, no rales or rhonchi CVS: Regular rate and rhythm no murmur gallop or rub Abdomen: Soft, active, nontender, no masses, no hepatosplenomegaly Ext: No edema, clubbing or cyanosis. Neuro: Alert and responsive, moving all 4 extremities on command, cranial nerves intact, no focal findings Skin: Intact no open lesions, no rash (MANASA HERNANDEZ) Course - Laboratory Result Diagrams: 08/19/19 15:47 08/19/19 15:47 - EKG Interpretation by [facility] EKG shows normal: Sinus rhythm - EKG: Normal sinus rhythm rate of 94, no acute ST or T wave abnormality, normal axis. <MANASA HERNANDEZ - Last Filed: 08/19/19 19:29> - Laboratory Result Diagrams: 08/19/19 15:47 08/19/19 15:47 <ZANDRA NIEVES IV - Last Filed: 08/19/19 22:27> - Re-evaluation Re-evalutation: 08/19/19 19:36 Patient is requesting alcohol detox, Dr. Judge, psychiatry knows the patient well, has seen the patient in the emergency department briefly. Alcohol level was noted to be 259, will have to monitor closely. The patient is given food and presently awaiting further evaluation. It is noted that the patient had pseudoseizures and uses this activity to gain IV Ativan. (MANASA HERNANDEZ) 08/19/19 22:24 Patient's has called and states she is willing to come get him. [facility] was contacted and they cannot accept the patient if he does not have his Keppra medication with him. Patient states he feels comfortable going home at this time to get his Keppra medication and then plans to follow-up with [facility]. Emergency signs and symptoms, reasons to return to the emergency department discussed with patient. All questions were answered prior to discharge. (ZANDRA NIEVES IV) - Vital Signs Vital signs: Temp Pulse Resp BP Pulse Ox 98.7 F 97 13 135/65 H 100 08/19/19 15:53 08/19/19 21:10 08/19/19 19:42 08/19/19 21:01 08/19/19 21:03 - Laboratory Laboratory results interpreted by me: 08/19/19 08/19/19 15:47 15:47 WBC 13.8 H Lymph % (Auto) 8.8 L Absolute Neuts (auto) 11.3 H Seg Neutrophils % 81.8 H Sodium 130.1 L Chloride 97 L Carbon Dioxide 21 L 08/19/19 19:39 I have reviewed laboratory data and used this information for the treatment decisions regarding the patient. (MANASA HERNANDEZ) Discharge <MANASA HERNANDEZ - Last Filed: 08/19/19 19:29> <ZANDRA NIEVES IV - Last Filed: 08/19/19 22:27> - Discharge Clinical Impression: Pseudoseizures, Alcohol abuse Alcohol intoxication Qualifiers: Complication of substance-induced condition: uncomplicated Qualified Code(s): F10.920 - Alcohol use, unspecified with intoxication, uncomplicated Condition: Good Disposition: HOME, SELF-CARE Additional Instructions: Return to the Emergency Department without delay if any worse. HOME CARE INSTRUCTIONS & INFORMATION: Thank you for choosing us for your medical needs. We hope you're satisfied with the care you received. After you leave, you must properly care for your problem and, at the same time, observe its progress. Any condition can change. Some illnesses can change rapidly over hours or days. If your condition worsens, return to the Emergency Department or see your physician promptly. ABOUT YOUR X-RAYS AND EKG'S: If you had an EKG or X-rays taken, they have been read by the Emergency Physician. The X-rays and EKG's will also be read by a Radiologist or [facility] within 24 hours. If discrepancies are noted, you will be notified by telephone. Please be certain the ED has a correct telephone number & address where you can be reached. Also, realize that some fractures or abnormalities do not show up on initial X-rays. If your symptoms continue, see your physician. ABOUT YOUR LABORATORY TEST: If you had laboratory tests, the results have been reviewed by the Emergency Physician. Some test results (for example cultures) may not be available for several days. You will be contacted if any test result shows you need additional treatment. Please be certain the ED has a correct telephone number and address where you can be reached. ABOUT YOUR MEDICATIONS: You will receive instructions on how to take your medicine on the prescription label you receive. Additional information may be provided by the Pharmacy. If you have questions afterwards, call the ED for clarification or further instructions. Some prescribed medications may cause drowsiness. Do not perform tasks such as driving a car or operating machinery without consulting your Pharmacist. If you feel you need a refill of pain medication, your condition will need re-evaluation. Please do not call for a refill of any medication. ABOUT YOUR SIGNATURE: Signature of this document acknowledges to followin. Understanding that you received emergency treatment and that you may be released before al medical problems are known or treated. Please be certain the ED has a correct phone number & address where you can be reached. 2. Acknowledgement that you will arrange for follow-up care as recommended. 3. Authorization for the Emergency Physician to provide information to your follow-up Physician in order to maximize your care. AT ANY TIME, IF YOUR SYMPTOMS CHANGE SIGNIFICANTLY OR WORSEN OR YOU DEVELOP NEW SYMPTOMS, RETURN TO THE EMERGENCY DEPARTMENT IMMEDIATELY FOR RE-EVALUATION. OUR GOAL IS TO PROVIDE EXCELLENT MEDICAL CARE! WE HOPE THAT WE HAVE MET YOUR EXPECTATIONS DURING YOUR EMERGENCY DEPARTMENT VISIT AND THAT YOU FEEL YOU HAVE RECEIVED EXCELLENT CARE! Acute Alcohol Intoxication Your evaluation revealed very high levels of alcohol. You can from drinking a large amount of alcohol rapidly! Further, there's the risk of falls, traffic accidents, and fights. A high portion (about 50 percent) of the serious injuries seen in hospital emergency rooms are caused by alcohol. Alcohol overdosage is usually due to an underlying emotional or psychiatric problem. You may benefit from counselling. If "binge" drinking is an ongoing problem for you, or if you drink ANY AMOUNT of alcohol EVERY day, you most likely have a tendency to alcoholism. You should avoid alcohol totally. We can refer you for treatment. Persons with alcohol problems are often also prone to other addictions -- you should discuss any use of medications or drugs with the doctor. You should be watched at home for the next several hours by someone who has not been drinking. Get extra fluids for the next 24 hours. Call the doctor if there is repeated vomiting, increasing headache, decreasing level of alertness, or any other worsening. Referrals: GRETCHEN HUMPHREYS MD [HONORARY] - Follow up as needed
--- NOTE | 2019-08-19 20:44 | ER Document Report ---
Doctor's Note Notes: 08/19/19 20:40 Met with Patient who stated he is intoxicated and reportedly had a seizure earlier today. He stated he could not go to [facility] because of his seizures. Patient reported he lost his medication prescribed to him in June for seizures but did not have an answer as to why he has not gotten a new script or why he didn't have any meds for the year previous for seizures. He is adamant about his seizure disorder yet there have been none observed and his pharmacy history does not support his claims. Patient stated he needs help for his sobriety. Discussed with Patient at length that sobriety required a change of thought processes by him first, and not necessarily when he was intoxicated and feeling poorly. Advised him that when the alcohol wears off, he needs to make the decision of whether he wants to continue the cycle of misery, i.e. drink,drunk, fall down, ambulance, pain, I want help, get resources, sober up, get alcohol, drink, repeat........ Advised the patient there was no magic pill, no magic detox, no magic answer except the choice to choose change and that was all his. Patient was alert and oriented to person, place, time, and circumstance. Mood was intoxicated and euythmic and cooperative, affect was mood congruent. He initially endorsed suicidal ideation but recalled his suicidal statements when asked about the intention of of his statements. He denied homicidal ideation, intent or plan. There was no evidence of psychosis or delusions. Thought processes were logical, organized, and linear. Conversational speech was notable for slurring, normal tone and rate. Intellectual abilities were estimated within the average range. Attention and concentration was within normal limits while insight, judgment, and impulse control was impaired. Clinical Impression Intoxicated Chronic Alcoholism with moderate desire for change Impression /Plan: Patient is cleared from acute psychiatric services. Patient receptive to making alternative decisions regarding his chosen lifestyle of drinking and regarding medication management. Patient was given psycho- education on sobriety and what it takes, choices, etc. to obtain sobriety and encouraged to make that choice. Advised that if he truly wants help, to take the help resources provided and use them. ED Physician in agreement with recom mendation and disposition.
[2019-08-19 23:00] VITALS: BP 146/87
== END 2019-08-19 23:00 | disposition home or self-care (01) ==
LOC: ER 15:40
DX: F44.5 Conversion disorder with seizures or convulsions (principal); F10.220 Alcohol dependence with intoxication, uncomplicated; Y90.8 Blood alcohol level of 240 mg/100 ml or more; F17.200 Nicotine dependence, unspecified, uncomplicated; I10 Essential (primary) hypertension; Z59.0 Homelessness
CPT/HCPCS: 36415; 80053; 80307; 81001; 82962; 83735; 85025; 93005; 93010; 99285

== ENCOUNTER → 2019-10-15 | Outpatient (CLI) | payer OTHER ==
[2019-10-15 10:35] LABS: ABSOLUTE BASOPHILS # (AUTO) 0.1 10^3/uL (0.0-0.2); ABSOLUTE EOSINOPHILS # (AUTO) 1.1 10^3/uL (0.0-0.6); ABSOLUTE LYMPHOCYTES (AUTO) 1.4 10^3/uL (0.5-4.7); ABSOLUTE MONOCYTES (AUTO) 0.6 10^3/uL (0.1-1.4); ABSOLUTE NEUT (AUTO) 3.6 10^3/uL (1.7-8.2); BASOPHILS % (AUTO) 1.4 % (0-2); EOSINOPHILS % (AUTO) 16.4 % (0-6); HEMATOCRIT 44.7 % (37.9-51.0); HEMOGLOBIN 15.1 g/dL (13.5-17.0); LYMPHOCYTES % (AUTO) 20.3 % (13-45); MEAN CORPUSCULAR HEMOGLOBIN 31.6 pg (27.0-33.4); MEAN CORPUSCULAR HGB CONC 33.8 g/dL (32.0-36.0); MEAN CORPUSCULAR VOLUME 94 fl (80-97); PLATELET COUNT 243 10^3/uL (150-450); RED BLOOD COUNT 4.78 10^6/uL (4.35-5.55); RED CELL DISTRIBUTION WIDTH 14.3 % (11.5-14.0); SEGMENTED NEUTROPHILS % (AUTO) 52.9 % (42-78); TOTAL CELLS COUNTED % (AUTO) 100 %; WHITE BLOOD COUNT 6.8 10^3/uL (4.0-10.5)
[2019-10-15 10:59] LABS: ALBUMIN 4.3 g/dL (3.5-5.0); ALKALINE PHOSPHATASE 41 U/L (38-126); ANION GAP 8 (5-19); ASPARTATE AMINO TRANSFERASE 29 U/L (17-59); BILIRUBIN,TOTAL 0.3 mg/dL (0.2-1.3); BLOOD UREA NITROGEN 6 mg/dL (7-20); CARBON DIOXIDE 22 mmol/L (22-30); CHLORIDE 108 mmol/L (98-107); CHOLESTEROL 205.34 mg/dL (0-200); GLUCOSE 107 mg/dL (75-110); POTASSIUM 4.9 mmol/L (3.6-5.0); TOTAL PROTEIN 7.5 g/dL (6.3-8.2); TRIGLYCERIDES 184 mg/dL (<150)
[2019-10-15 11:11] LABS: DIRECT LDL 122 mg/dL (<100)
[2019-10-15 11:29] LABS: VLDL CHOLESTEROL 36.8 mg/dL (10-31)
== END ==
LOC: CCC 09:24
PROVIDERS: ATTEND Internal Medicine
DX: I10 Essential (primary) hypertension (principal); G40.89 Other seizures; Z79.899 Other long term (current) drug therapy
CPT/HCPCS: 36415; 80053; 80061; 83036; 84153; 84443; 85025